=== PATIENT | female | born 1975 | race Hispanic/Latino ===

== ENCOUNTER 2017-07-19 22:23 | Emergency (ER) | payer SELFPAY ==
[2017-07-19 23:07] LABS: Urine Blood 2+ (NEG); Urine Glucose NEGATIVE (NEG); Urine Protein 2+ (NEG); Urine Specific Gravity >1.030 (1.005-1.030); Urine pH 5.5 (5.0-7.0)
[2017-07-19] MEDS ORDERED: KETOROLAC 30 MG/ML INJ ONE (23:41)
[2017-07-20 00:35] LABS: Absolute Monocytes 0.4 K/uL (0.1-1.3); Absolute Neutrophil 3.1 K/uL (1.8-8.0); Basophils % 0.7 % (0-1.3); Eosinophils % 1.4 % (0-4.4); Hematocrit 32.3 % (36.0-45.0); MCH 26.3 pg (27.0-35.0); MCV 81.7 fL (80-100); MPV 8.2 fL (7.6-11.3); Monocytes % 9.3 % (3.3-12.3); RBC Red Blood Cell Count 3.96 M/uL (3.86-4.86)
[2017-07-20 00:36] LABS: Protime INR 1.21
[2017-07-20 00:41] LABS: Potassium 3.2 mEq/L (3.6-5.0)
[2017-07-20 00:47] LABS: Albumin 3.8 g/dL (3.2-5.5); Bilirubin Direct 0.1 mg/dL (0-0.2); Bilirubin Total 0.8 mg/dL (0.3-1.2); Magnesium 2.2 mg/dL (1.8-2.5); Protein, Total 8.1 g/dL (6.0-8.3)
[2017-07-20 00:50] LABS: CKMB Creatine Kinase MB 0.7 ng/ml (0.3-4.0)
--- NOTE | 2017-07-20 03:42 | EDPHYS ---
Physician Documentation [facility] Name: Sobia Ang Age: 42 yrs Sex: Female : 1975 Arrival Date: 07/19/2017 Time: 22:24 Bed 7 Private MD: ED Physician Carlton Alexis HPI: 07/20 06:08 This 42 yrs old Female presents to ER via Ambulatory with complaints of Pain tw4 All Over, Abdominal Pain, Chest Pain. 06:08 The patient complains of pain in the left low back and right low back. The pain tw4 radiates. Onset: The symptoms/episode began/occurred today. Modifying factors: The symptoms are alleviated by nothing. the symptoms are aggravated by nothing. Associated signs and symptoms: The patient has no apparent associated signs or symptoms. Severity of pain: At its worst the pain was moderate in the emergency department the pain is unchanged. The patient has not experienced similar symptoms in the past. 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 - Social history:: Smoking status: Patient/guardian denies using tobacco, Patient/guardian denies using alcohol, street drugs. - Ebola Screening: : No symptoms or risks identified at this time. ROS: 07/20 06:08 Constitutional: Negative for fever, chills, and weight loss, Cardiovascular: Negative tw4 for chest pain, palpitations, and edema, Respiratory: Negative for shortness of breath, cough, wheezing, and pleuritic chest pain, MS/Extremity: Negative for injury and deformity, Skin: Negative for injury, rash, and discoloration. Abdomen/GI: Positive for abdominal pain, nausea and vomiting, Negative for abdominal pain, diarrhea, abdominal cramps, abdominal distension, anorexia, dysphagia, hematemesis, black/tarry stool, rectal pain, rectal bleeding. Back: Positive for pain at rest, pain with movement, flank pain, bilaterally, Negative for injury or acute deformity, decreased range of motion. Exam: 06:08 Constitutional: This is a well developed, well nourished patient who is awake, alert, tw4 and in no acute distress. Head/Face: Normocephalic, atraumatic. Chest/axilla: Normal chest wall appearance and motion. Nontender with no deformity. No lesions are appreciated. Cardiovascular: Regular rate and rhythm with a normal S1 and S2. No gallops, murmurs, or rubs. Normal PMI, no JVD. No pulse deficits. Respiratory: Lungs have equal breath sounds bilaterally, clear to auscultation and percussion. No rales, rhonchi or wheezes noted. No increased work of breathing, no retractions or nasal flaring. Abdomen/GI: Soft, non-tender, with normal bowel sounds. No distension or tympany. No guarding or rebound. No evidence of tenderness throughout. 06:08 MS/ Extremity: Pulses equal, no cyanosis. Neurovascular intact. Full, normal range of motion. Neuro: Awake and alert, GCS 15, oriented to person, place, time, and situation. Cranial nerves II-XII grossly intact. Motor strength 5/5 in all extremities. Sensory grossly intact. Cerebellar exam normal. Normal gait. 06:08 Back: pain, that is mild, ROM is painful, with all movement, decreased, with all movement, normal spinal alignment noted, CVA tenderness, is noted bilaterally. Vital Signs: 07/19 22:35 BP 115 / 74 LA Sitting (auto/reg); Pulse 95 LA; Resp 22 S; Temp 101.3(O); Pulse Ox 100% mg2 ; Weight 63.5 kg; Height 5 ft. 4 in. (162.56 cm) (R); Pain 10/10; 23:35 BP 106 / 64; Pulse 90; Resp 18; Pulse Ox 100% on R/A; mg2 07/20 00:31 BP 103 / 63; Pulse 79; Resp 18; Temp 100.8; Pulse Ox 100% ; Pain 2/10; mg2 01:44 BP 125 / 69; Pulse 79; Resp 18; Pulse Ox 100% on R/A; Pain 2/10; mg2 02:51 BP 107 / 70; Pulse 79; Resp 18; Temp 99.6(O); Pulse Ox 100% on R/A; Pain 2/10; mg2 07/19 22:35 Body Mass Index 24.03 (63.50 kg, 162.56 cm) mg2 MDM: 07/19 22:27 Patient medically screened. 07/20 06:08 Data reviewed: vital signs, nurses notes. Data interpreted: Pulse oximetry: Interpretation: normal. Counseling: I had a detailed discussion with the patient and/or guardian regarding: the historical points, exam findings, and any diagnostic results supporting the discharge/admit diagnosis. Special discussion: Based on the patient's Hx, exam, and Dx evaluation, there is no indication for emergent surgery or inpatient Tx. It is understood by the patient/guardian that if the Sx's persist or worsen they need to return immediately for re-evaluation. I discussed with the patient/guardian in detail that at this point there is no indication for admission to the hospital. It is understood, however, that if the symptoms persist or worsen the patient needs to return immediately for re-evaluation. 07/19 23:02 Order name: Urine Dipstick--Ancillary (enter results); Complete Time: 00:25 07/20 00:25 Interpretation: Normal except: UKET 2+; UPROT 2+; UBLD 2+. 07/19 23:02 Order name: Urine --Ancillary (enter results); Complete Time: 00:25 07/20 00:25 Interpretation: Normal except: USPGR >1.030. 07/19 23:03 Order name: Basic Metabolic Panel; Complete Time: 01:07 07/20 01:08 Interpretation: Normal except: NA 133; K 3.2; CA 8.3; CRE 1.07; GFR 56. 07/19 23:03 Order name: BNP; Complete Time: 01:07 07/19 23:03 Order name: CBC with Diff; Complete Time: 01:07 07/19 23:03 Order name: Ckmb; Complete Time: 01:07/19 23:03 Order name: CPK; Complete Time: 01:07/19 23:03 Order name: LFT's; Complete Time: 01:07/19 23:03 Order name: Magnesium; Complete Time: 01:07 07/19 23:03 Order name: PT-INR; Complete Time: 01:07 07/19 23:03 Order name: Ptt, Activated; Complete Time: 01:31 23:03 Order name: Troponin (emerg Dept Use Only); Complete Time: 01:07 07/20 01:08 Interpretation: Within normal limits: TROPED < 0.03. 07/19 23:03 Order name: XRAY Chest (1 view) 07/19 23:03 Order name: Urine Test (obtain specimen); Complete Time: 23:08 07/19 23:03 Order name: EKG; Complete Time: 23:04 07/19 23:03 Order name: Cardiac monitoring; Complete Time: 23:08 07/19 23:03 Order name: EKG - Nurse/Tech; Complete Time: 23:08 07/19 23:03 Order name: IV Saline Lock; Complete Time: 23:08 07/19 23:03 Order name: Labs collected and sent; Complete Time: 23:08 07/19 23:03 Order name: O2 Per Protocol; Complete Time: 23:08 07/19 23:03 Order name: O2 Sat Monitoring; Complete Time: 23:08 07/19 23:03 Order name: Urine Dipstick-Ancillary (obtain specimen); Complete Time: 23:08 07/20 02:09 Order name: Stone Protocol EDMS Administered Medications: 07/19 23:42 Drug: TORadol 30 mg Route: IVP; Site: right antecubital; mg2 07/20 00:34 Follow up: Response: No adverse reaction; Pain is decreased mg2 Disposition: 07/20/17 03:42 Discharged to Home. Impression: Low back pain, Vomiting, Gastritis, unspecified. - Condition is Stable. - Discharge Instructions: Pain Without a Known Cause, Gastritis, Adult, [id number], Nausea and Vomiting, [id number], Back Pain, Adult, Hugd-jc-Kyan. - Prescriptions for Naprosyn 500 mg Oral Tablet - take 1 tablet by ORAL route 2 times per day take with food; 30 tablet. Zofran 4 mg Oral Tablet - take 1 tablet by ORAL route every 12 hours As needed; 20 tablet. Cyclobenzaprine 10 mg Oral Tablet - take 1 tablet by ORAL route every 8 hours As needed; 30 tablet. - Medication Reconciliation Form, Thank You Letter, Antibiotic Education, Prescription Opioid Use, Work release form form. - Follow up: Private Physician; When: As needed; Reason: Recheck today's complaints, Continuance of care, Re-evaluation by your physician. - Problem is new. - Symptoms have improved. Signatures: Dispatcher [employer] [facility] Carlton Alexis MD MD tw4 Arnol Carlson, RN RN mg2 Corrections: (The following items were deleted from the chart) 01:08 01:08 Normal except: NA 133; K 3.2; CA 8.3; CRE 1.07. tw4 tw4 02:09 01:11 Abdomen Pelvis Wo Con+CT.RAD.BRZ ordered. [facility] 04:14 03:42 07/20/2017 03:42 Discharged to Home. Impression: Low back pain; Vomiting; mg2 Gastritis, unspecified. Condition is Stable. Forms are Medication Reconciliation Form, Thank You Letter, Antibiotic Education, Prescription Opioid Use. Follow up: Private Physician; When: As needed; Reason: Recheck today's complaints, Continuance of care, Re-evaluation by your physician. Problem is new. Symptoms have improved. tw4
--- NOTE | 2017-07-20 03:42 | ER ---
Nurse's Notes [facility] Name: Sobia Ang Age: 42 yrs Sex: Female : 1975 Arrival Date: 07/19/2017 Time: 22:24 Bed 7 Private MD: Diagnosis: Low back pain;Vomiting;Gastritis, unspecified Presentation: 07/19 22:40 Presenting complaint: Patient states: she had bilateral flank, chest and abdominal pain mg2 with vomiting since morning. she had also difficulty passing urine today. she took 2 tabs of ibuprofen \T\2030H. Transition of care: patient was not received from another setting of care. Onset of symptoms was July 19, 2017. Risk Assessment: Do you want to hurt yourself or someone else? Patient reports no desire to harm self or others. Initial Sepsis Screen: Does the patient meet any 2 criteria? No. Patient's initial sepsis screen is negative. Does the patient have a suspected source of infection? No. Patient's initial sepsis screen is negative. Care prior to arrival: None. 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 - Social history:: Smoking status: Patient/guardian denies using tobacco, Patient/guardian denies using alcohol, street drugs. - Ebola Screening: : No symptoms or risks identified at this time. Screenin:49 Abuse screen: Denies threats or abuse. Denies injuries from another. Nutritional mg2 screening: No deficits noted. Tuberculosis screening: No symptoms or risk factors identified. Fall Risk None identified. Assessment: 22:45 General: Appears uncomfortable, Behavior is calm, cooperative. Pain: Complains of pain mg2 in chest, abdomen and back Pain currently is 10 out of 10 on a pain scale. Quality of pain is described as aching, Pain began gradually, this morning Is intermittent, Noted to be moaning. 23:14 Neuro: Level of Consciousness is awake, alert, obeys commands, Oriented to person, mg2 place, time. Cardiovascular: Reports chest pain, vomiting, Capillary refill < 3 seconds Patient's skin is warm and dry. Respiratory: Airway is patent Respiratory effort is even, unlabored, Respiratory pattern is symmetrical. GI: Reports lower abdominal pain, vomiting. : Reports inability to void, since morning. EENT: No signs and/or symptoms were reported regarding the EENT system. Derm: Skin hereditary rashes. Musculoskeletal: No signs and/or symptoms reported regarding the musculoskeletal system. 23:17 GI: Bowel sounds present X 4 quads. Abd is soft. mg2 07/20 02:53 Reassessment: Patient appears in no apparent distress at this time. Patient and/or mg2 family updated on plan of care and expected duration. Pain level reassessed. Patient is alert, oriented x 3, equal unlabored respirations, skin warm/dry/pink. waiting for ct report. 03:50 Reassessment: Patient appears in no apparent distress at this time. Patient and/or mg2 family updated on plan of care and expected duration. Pain level reassessed. Patient is alert, oriented x 3, equal unlabored respirations, skin warm/dry/pink. Vital Signs: 07/19 22:35 BP 115 / 74 LA Sitting (auto/reg); Pulse 95 LA; Resp 22 S; Temp 101.3(O); Pulse Ox 100% mg2 ; Weight 63.5 kg; Height 5 ft. 4 in. (162.56 cm) (R); Pain 10/10; 23:35 BP 106 / 64; Pulse 90; Resp 18; Pulse Ox 100% on R/A; mg2 07/20 00:31 BP 103 / 63; Pulse 79; Resp 18; Temp 100.8; Pulse Ox 100% ; Pain 2/10; mg2 01:44 BP 125 / 69; Pulse 79; Resp 18; Pulse Ox 100% on R/A; Pain 2/10; mg2 02:51 BP 107 / 70; Pulse 79; Resp 18; Temp 99.6(O); Pulse Ox 100% on R/A; Pain 2/10; mg2 07/19 22:35 Body Mass Index 24.03 (63.50 kg, 162.56 cm) mg2 ED Course: 07/19 22:24 Patient arrived in ED. am2 22:26 Carlton Alexis MD is Attending Physician. tw4 22:33 Arnol Carlson, RN is Primary Nurse. mg2 22:42 Triage completed. mg2 22:45 Arm band placed on. mg2 22:50 Patient has correct armband on for positive identification. Placed in gown. Bed in low mg2 position. Side rails up X 1. Door closed. Noise minimized. Warm blanket given. 23:08 Inserted saline lock: 20 gauge in right antecubital area, using aseptic technique. mg2 Blood collected. 23:22 X-ray completed. Portable x-ray completed in exam room. Patient tolerated procedure kw well. 23:23 XRAY Chest (1 view) In Process Unspecified. EDMS 23:52 Lab(s) recollected, by me, sent to lab. mg2 07/20 02:[address] via wheelchair. kw1 02:24 Stone Protocol In Process Unspecified. EDMS 02:25 CT completed. Patient tolerated procedure well. Patient moved back from CT. kw1 03:51 No provider procedures requiring assistance completed. mg2 04:12 IV discontinued, intact, bleeding controlled, No redness/swelling at site. Pressure mg2 dressing applied. Administered Medications: 07/19 23:42 Drug: TORadol 30 mg Route: IVP; Site: right antecubital; mg2 07/20 00:34 Follow up: Response: No adverse reaction; Pain is decreased mg2 Outcome: 03:42 Discharge ordered by . tw4 04:13 Discharged to home ambulatory. mg2 04:13 Condition: stable 04:13 Discharge instructions given to patient, Instructed on discharge instructions, follow up and referral plans. medication usage, Demonstrated understanding of instructions, follow-up care, medications, Prescriptions given X 3. 04:14 Patient left the ED. mg2 Signatures: Dispatcher [employer] EDMS Juana Hanks kw Rima Adams am2 Larry Oconnor cb2 Belinda Grady kw1 Carlton Alexis MD MD tw4 Arnol Carlson RN RN mg2 Corrections: (The following items were deleted from the chart) 07/19 22:38 22:35 BP 115 / 74 Sitting Auto L Arm Regular; Pulse 95bpm; Left ArmResp 22bpm; cb2 Spontaneous; Pulse Ox 100%; Temp 99.5F Oral; 63.5 kg; Height 5 ft. 4 in. Reported; BMI: 24.0; Pain 10/10; cb2 22:49 22:35 BP 115 / 74 Sitting Auto L Arm Regular; Pulse 95bpm; Left ArmResp 22bpm; mg2 Spontaneous; Pulse Ox 100%; Temp 101.3F Oral; 63.5 kg; Height 5 ft. 4 in. Reported; BMI: 24.0; Pain 10; cb2 23:17 22:45 Pain: Complains of pain in chest, abdomen and back mg2 mg2
--- NOTE | 2017-07-20 06:51 | EKG ---
Test Date: 2017-07-19 Test Time: 22:54:09 Lna: KLAUS MEASUREMENT RESULTS: Intervals: Rate: 79 LA: 146 QRSD: 66 QT: 388 QTc: 444 [place]: P: 71 LA: 146 QRS: 45 T: 55 INTERPRETIVE STATEMENTS: Normal sinus rhythm Normal ECG Compared to ECG 03/18/2009 19:41:11 no significant change from previous ECG Electronically Signed On 07-20-17 06:50:27 CDT by Pedro Martin
--- NOTE | 2017-07-20 08:32 | RAD REPORT ---
EXAM DESCRIPTION: RAD - Chest Single View - 07/19/2017 11:26 pm CLINICAL HISTORY: Abdominal pain, flank pain COMPARISON: August 2015 TECHNIQUE: AP portable chest image was obtained 2313 hours . FINDINGS: Lungs are clear. Heart and vasculature are normal. No measurable pleural effusion and no p neumothorax. No gross bony abnormality seen. No acute aortic findings suspected. IMPRESSION: No acute cardiopulmonary process. No significant interval change.
--- NOTE | 2017-07-20 08:44 | RAD REPORT ---
EXAM DESCRIPTION: CT - Stone Protocol - 07/20/2017 7:36 am CLINICAL HISTORY: Bilateral flank pain, chest pain and abdominal pain, vomiting, difficulty urinating A preliminary written report was provided at the time of the study, and the report was reviewed prio r to final dictation. COMPARISON: CT imaging July 2007 TECHNIQUE: Axial [address] imaging of the abdomen and pelvis was performed without IV contrast. No IV contrast was given because of allergy, abnormal renal function, patient refusal or physician re quest. Oral contrast was given. All CT scans are performed using dose optimization technique as appropriate and may include automated exposure control or mA/KV adjustment according to patient size. FINDINGS: No suspicious findings in the lung bases. No pericardial effusion. The liver, spleen and pancreas show no suspicious findings on non-contrast imaging. Gallbladder and b iliary tree are also without suspicious finding. No hydronephrosis or suspicious renal mass. No significant adrenal finding. Isodense renal masses an d pyelonephritis cannot be excluded in the absence of IV contrast. Bladder is mostly contracted. This accentuates bladder raymond. Cystitis is unlikely. Uterus and ovaries within normal limits. No gastric dilatation or gastric wall thickening. No dilated large or small bowel. No focal or acute bowel process. No suspicion for appendicitis. No free air, free fluid or inflammatory stranding. No m ass or bulky lymphadenopathy. No omental thickening. No hernia defects identified. Patient has severa l bilateral inguinal lymph nodes. No clearly pathologic lymph node. In the right anterolateral subcut aneous fatty tissues there are 2 small masses just deep to the skin surface. These measure 10 mm and 16 mm in size. These were not present in 2007. These are not further characterized on CT imaging. The se are located in the right antral alar soft tissues between the umbilicus and the bottom of the ribc age. No suspicious bony findings. IMPRESSION: No acute abdominal or pelvic finding identifiable on noncontrast imaging. No abnormality seen as an etiology for the patient's symptoms. Two small soft tissue masses in the subcutaneous fatty tissues right anterolateral abdomen between th e umbilicus in the ribcage. These are nonspecific. Long-term significance is doubtful. Full assessment is limited is the absence of IV contrast.
== END 2017-07-20 04:14 | disposition home or self-care (01) ==
LOC: ER 22:23
DX: K29.70 Gastritis, unspecified, without bleeding (principal); R11.10 Vomiting, unspecified; Z79.82 Long term (current) use of aspirin
CPT/HCPCS: 36415; 71045; 74176; 76377; 80048; 80076; 81003; 81025; 82550; 82553; 83735; 83880; 84484; 85025; 85610; 85730; 93005; 96374; 99284

== ENCOUNTER 2018-07-16 10:47 | Emergency (ER) | payer SELFPAY ==
--- OUTSIDE RECORDS SUMMARY | 2018-07-16 10:49 | XMS REPORT ---
:1975 Author Organization [facility] Address [address] [place] [address] [place] [id number] Care Team Providers Name Role Phone Unavailable Unavailable Unavailable Problems This patient has no known problems. Allergies, Adverse Reactions, Alerts This patient has no known allergies or adverse reactions. Medications This patient has no known medications. Results Test Description Test Time Test Comments Text Results Atomic Results Result Comments SCR MAMM BILATERAL CAD 2017-12-25 15:48:19 - SCR MAMM BILATERAL CAD DIGITAL DIGITALBILATERAL FIRST EVER DIGITAL SCREENING MAMMOGRAM WITH CAD: 12/19/2017CLINICAL: Asymptomatic. Current mammographic images were evaluated by either a Involver M-Vu or a [employer] ImageChecker CAD (computer aided detection system). No prior exams were available for comparison. The tissue of both breasts is heterogeneously dense. This may lower the sensitivity of mammography. There is an oval low density mass measuring 1.8 cm in the lower inner quadrant of the right breast at middle depth. Prominent axillary nodes are noted bilaterally.No other significant masses, calcifications, or other findings are seen in either breast. IMPRESSION: INCOMPLETE ASSESSMENT: ADDITIONAL IMAGING EVALUATION RECOMMENDEDThe oval low density mass in the right breast is indeterminate. Prominent bilateral axillary lymph nodes. Additional views with possible ultrasound are recommended. Axillary ultrasound is recommended for evaluation of prominent lymph nodes.Esme Chiang M.D. el/:12/25/2017 15:48:19 [employer]vester: Jesusita Giron MM, [employer] Mammographyletter sent: Additional Imaging Mammogram BI-RADS: 0 Indeterminate
--- NOTE | 2018-07-16 11:25 | EDPHYS ---
Physician Documentation [facility] Name: Sobia Ang Age: 43 yrs Sex: Female : 1975 Arrival Date: 07/16/2018 Time: 10:51 Bed 25 Private MD: ED Physician Florin Wheeler HPI: 07/16 11:23 This 43 yrs old Female presents to ER via Ambulatory with complaints of Hives. ma2 11:23 Onset: The symptoms/episode began/occurred gradually, 2 week(s) ago. Associated signs ma2 and symptoms: Pertinent negatives: foreign body sensation, headache, swelling. Modifying factors: the symptoms are alleviated by remaining still, the symptoms are aggravated by pressure. Severity of symptoms: At their worst the symptoms were mild, in the emergency department the symptoms are unchanged. The patient has experienced similar episodes in the past. 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 - Social history:: Smoking status: Patient/guardian denies using tobacco, Patient/guardian denies using alcohol, street drugs, The patient lives with family. - Ebola Screening: : No symptoms or risks identified at this time. - Family history:: not pertinent. ROS: 11:23 Constitutional: Negative for fever, chills, and weight loss. ma2 11:23 Skin: Positive for lesions, diffusely, Negative for discoloration. 11:23 All other systems are negative. Exam: 11:23 Constitutional: This is a well developed, well nourished patient who is awake, alert, ma2 and in no acute distress. Head/Face: Normocephalic, atraumatic. Eyes: Pupils equal round and reactive to light, extra-ocular motions intact. Lids and lashes normal. Conjunctiva and sclera are non-icteric and not injected. Cornea within normal limits. Periorbital areas with no swelling, redness, or edema. ENT: Nares patent. No nasal discharge, no septal abnormalities noted. Tympanic membranes are normal and external auditory canals are clear. Oropharynx with no redness, swelling, or masses, exudates, or evidence of obstruction, uvula midline. Mucous membranes moist. Chest/axilla: Normal chest wall appearance and motion. Nontender with no deformity. No lesions are appreciated. Cardiovascular: Regular rate and rhythm with a normal S1 and S2. No gallops, murmurs, or rubs. Normal PMI, no JVD. No pulse deficits. Respiratory: Lungs have equal breath sounds bilaterally, clear to auscultation and percussion. No rales, rhonchi or wheezes noted. No increased work of breathing, no retractions or nasal flaring. Abdomen/GI: Soft, non-tender, with normal bowel sounds. No distension or tympany. No guarding or rebound. No evidence of tenderness throughout. Female : Normal external genitalia. Neuro: Awake and alert, GCS 15, oriented to person, place, time, and situation. Cranial nerves II-XII grossly intact. Motor strength 5/5 in all extremities. Sensory grossly intact. Cerebellar exam normal. Normal gait. 11:23 Skin: rash a moderate rash is noted, rash can be described as excoriated, raised, urticarial, and is diffusely located. Vital Signs: 10:56 BP 122 / 69; Pulse 76; Resp 16; Temp 97.9; Pulse Ox 100% on R/A; Weight 63.5 kg; Height hb 5 ft. (152.40 cm); Pain 10/10; 10:56 Body Mass Index 27.34 (63.50 kg, 152.40 cm) hb MDM: 10:58 Patient medically screened. ma2 11:23 Differential diagnosis: psoriasis, rash, eczema . Data reviewed: vital signs, nurses ma2 notes. Counseling: I had a detailed discussion with the patient and/or guardian regarding: the historical points, exam findings, and any diagnostic results supporting the discharge/admit diagnosis, the presence of at least one elevated blood pressure reading (>120/80) during this emergency department visit, the need for outpatient follow up. Response to treatment: the patient's symptoms have mildly improved after treatment. Administered Medications: 11:19 Drug: MethylPREDNISolone Sodium Succinate 125 mg Route: IM; Site: left ventrogluteal; sg 11:19 Drug: Benadryl 50 mg Route: IM; Site: right deltoid; sg Disposition: 07/16/18 11:25 Discharged to Home. Impression: Rash and other nonspecific skin eruption. - Condition is Stable. - Discharge Instructions: Rash, [id number]. - Prescriptions for Bactroban 2 % Topical Ointment - Apply to affected area 1 application by TOPICAL route every 12 hours; 15 gram. Benadryl 25 mg Oral Capsule - take 1 capsule by ORAL route every 6 hours As needed; 30 tablet. Medrol (David) 4 mg Oral Tablets, Dose Pack - take 1 tablet by ORAL route as directed - follow package instructions; 1 packet. Pepcid 20 mg Oral Tablet - take 1 tablet by ORAL route once daily for 10 days; 10 tablet. - Work release form, Medication Reconciliation Form, Thank You Letter, Antibiotic Education, Prescription Opioid Use form. - Follow up: Private Physician; When: Tomorrow; Reason: Continuance of care. Signatures: Abdirahman Hernandez RN RN Oksana Richey RN RN Florin Wheeler MD MD ma2 Corrections: (The following items were deleted from the chart) 11:42 11:25 07/16/2018 11:25 Discharged to Home. Impression: Rash and other nonspecific skin sg eruption. Condition is Stable. Forms are Medication Reconciliation Form, Thank You Letter, Antibiotic Education, Prescription Opioid Use. Follow up: Private Physician; When: Tomorrow; Reason: Continuance of care. ma2
--- NOTE | 2018-07-16 11:25 | ER ---
Nurse's Notes [facility] Name: Sobia Ang Age: 43 yrs Sex: Female : 1975 Arrival Date: 07/16/2018 Time: 10:51 Bed 25 Private MD: Diagnosis: Rash and other nonspecific skin eruption Presentation: 07/16 10:54 Presenting complaint: Patient states: Hives on left arm, left leg, back, and face x 2 hb days. Transition of care: patient was not received from another setting of care. Onset: The symptoms/episode began/occurred yesterday. Anaphylaxis evaluation, the patient reports or I have noted the following symptoms which indicate a significant risk of anaphylaxis:. Onset of symptoms was July 15, 2018. Risk Assessment: Do you want to hurt yourself or someone else? Patient reports no desire to harm self or others. Care prior to arrival: None. 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 - Social history:: Smoking status: Patient/guardian denies using tobacco, Patient/guardian denies using alcohol, street drugs, The patient lives with family. - Ebola Screening: : No symptoms or risks identified at this time. - Family history:: not pertinent. Vital Signs: 10:56 BP 122 / 69; Pulse 76; Resp 16; Temp 97.9; Pulse Ox 100% on R/A; Weight 63.5 kg; Height hb 5 ft. (152.40 cm); Pain 10/10; 10:56 Body Mass Index 27.34 (63.50 kg, 152.40 cm) hb ED Course: 10:51 Patient arrived in ED. as 10:56 Triage completed. hb 10:56 Arm band placed on right wrist. hb 10:58 Florin Wheeler MD is Attending Physician. ma2 11:08 Abdirahman Hernandez RN is Primary Nurse. sg Administered Medications: 11:19 Drug: MethylPREDNISolone Sodium Succinate 125 mg Route: IM; Site: left ventrogluteal; sg 11:19 Drug: Benadryl 50 mg Route: IM; Site: right deltoid; sg Outcome: 11:25 Discharge ordered by . silvana 11:42 Patient left the ED. sg Signatures: Abdirahman Hernandez RN RN sg Martinez, Amelia as Baxter, Heather, RN RN Florin Wheeler MD MD ma2
[2018-07-16] MEDS ORDERED: METHYLPREDNISOLONE 125 MG INJ ONE (11:34)
[2018-07-16] MEDS ORDERED: DIPHENHYDRAMINE 50 MG/ML VIAL ONE (11:35)
== END 2018-07-16 11:42 | disposition home or self-care (01) ==
LOC: ER 10:47
DX: R21 Rash and other nonspecific skin eruption (principal)
CPT/HCPCS: 96372; 99282; J2930

== ENCOUNTER 2019-02-09 10:38 | Emergency (ER) | payer SELFPAY ==
--- OUTSIDE RECORDS SUMMARY | 2019-02-09 10:40 | XMS REPORT ---
:1975 [facility] [address] [place] [address] Dr. Crawford [address] [place] [id number] Care Team Providers Name Role Phone Unavailable [...] mammographic images were evaluated by either a Backplane M-Vu or a Clerk ImageChecker CAD (computer aided detection system). No [...] prominent lymph nodes.Esme Chiang M.D. el/:12/25/2017 15:48:19 Carburetor Specialist: Jesusita Giron MM, [facility] Mammographyletter sent: Additional Imaging Mammogram BI-RADS: 0 Indeterminate
[2019-02-09] MEDS ORDERED: ALBUTEROL 2.5 MG/3 ML NEB SOL ONE (11:17)
[2019-02-09] MEDS ORDERED: NA CHLORIDE 0.9% 1,000 ML ONE (11:18)
[2019-02-09] MEDS ORDERED: ONDANSETRON 4 MG/2 ML VIAL ONE (11:18)
[2019-02-09] MEDS ORDERED: IPRATROPIUM BROM 0.5MG/2.5ML ONE (11:18)
[2019-02-09 11:33] LABS: Basophils % 0.5 % (0-1.3); Hematocrit 32.8 % (36.0-45.0); Lymphocytes % 21.8 % (15.3-44.8); MPV 7.8 fL (7.6-11.3); RBC Red Blood Cell Count 3.81 M/uL (3.86-4.86)
[2019-02-09 11:51] LABS: ALT/SGPT 18 U/L (12-78); AST/SGOT 11 U/L (15-37); Alkaline Phosphatase 73 U/L (45-117); BUN Blood Urea Nitrogen 9 mg/dL (7-18); Bicarbonate 27 mmol/L (21-32); Bilirubin Direct < 0.1 mg/dL (0-0.2); Bilirubin Total 0.3 mg/dL (0.2-1.0); Glucose Level 102 mg/dL (74-106); Lipase 125 U/L (73-393); Potassium 3.8 mmol/L (3.5-5.1); Protein, Total 7.6 g/dL (6.4-8.2); Sodium Level 140 mmol/L (136-145)
--- NOTE | 2019-02-09 11:55 | RAD REPORT ---
EXAM DESCRIPTION: RAD - Chest Single View - 02/09/2019 11:46 am CLINICAL HISTORY: Congestion;Cough Chest pain. COMPARISON: Chest Single View dated 07/19/2017; Chest Pa And Lat (2 Views) dated 09/11/2015; CHEST SIN GLE VIEW dated 08/04/2007; CHEST PA AND LAT 2 VIEW dated 07/13/2006 FINDINGS: Portable technique limits examination quality. The lungs are grossly clear. The heart is normal in size. No displaced fractures. IMPRESSION: No acute intrathoracic process suspected.
--- NOTE | 2019-02-09 13:10 | ER ---
Nurse's Notes [facility] Name: Sobia Ang Age: 43 yrs Sex: Female : 1975 Arrival Date: 02/09/2019 Time: 10:40 Bed 17 Private MD: Diagnosis: Gastroenteritis, non-specific;Nausea and vomiting;Diarrhea, unspecified Presentation: 02/09 10:48 Presenting complaint: Patient states: i thought yesterday it was just allergies, i am tw2 sweating when i woke up, i have had a cough and sob, chest tightness, also nauseous vomiting and have diarrhea. Transition of care: patient was not received from another setting of care. Onset of symptoms was February 09, 2019. Risk Assessment: Do you want to hurt yourself or someone else? Patient reports no desire to harm self or others. Initial Sepsis Screen: Does the patient meet any 2 criteria? No. Patient's initial sepsis screen is negative. Does the patient have a suspected source of infection? No. Patient's initial sepsis screen is negative. Care prior to arrival: None. 10:48 Method Of Arrival: Ambulatory tw2 10:48 Acuity: FRANCES 3 tw2 Triage Assessment: 10:45 General: Appears in no apparent distress. Respiratory: Onset: The symptoms/episode tw2 began/occurred yesterday, the patient has mild shortness of breath. 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 - Social history:: Smoking status: . - Ebola Screening: : Patient denies travel to an Ebola-affected area in the 21 days before illness onset. Screenin:34 Abuse screen: Denies threats or abuse. Nutritional screening: No deficits noted. tw2 Tuberculosis screening: No symptoms or risk factors identified. Fall Risk None identified. Assessment: 10:45 General: Appears in no apparent distress. slender, well groomed, Behavior is calm, tw2 cooperative, appropriate for age. Pain: Complains of pain in abdomen. Neuro: Level of Consciousness is awake, alert, obeys commands, Oriented to person, place, time, situation. Cardiovascular: Heart tones S1 S2 Capillary refill < 3 seconds Patient's skin is warm and dry. Rhythm is regular. Respiratory: Reports shortness of breath at rest on exertion cough that is non-productive, Airway is patent Respiratory effort is even, unlabored, Respiratory pattern is regular, symmetrical, Breath sounds with wheezes bilaterally. GI: Abdomen is flat, Bowel sounds present X 4 quads. Reports diarrhea, nausea, vomiting. : No signs and/or symptoms were reported regarding the genitourinary system. EENT: Reports nasal congestion nasal discharge. Derm: Reports skin condition "derais skin disease that is hereditary". Musculoskeletal: Range of motion: intact in all extremities. 11:45 Reassessment: Patient appears in no apparent distress at this time. No changes from tw2 previously documented assessment. Patient and/or family updated on plan of care and expected duration. Pain level reassessed. Patient is alert, oriented x 3, equal unlabored respirations, skin warm/dry/pink. 12:35 Reassessment: Patient appears in no apparent distress at this time. No changes from tw2 previously documented assessment. Patient and/or family updated on plan of care and expected duration. Pain level reassessed. Patient is alert, oriented x 3, equal unlabored respirations, skin warm/dry/pink. 13:30 Reassessment: Patient appears in no apparent distress at this time. No changes from tw2 previously documented assessment. Patient and/or family updated on plan of care and expected duration. Pain level reassessed. Patient is alert, oriented x 3, equal unlabored respirations, skin warm/dry/pink. 14:14 Reassessment: Patient appears in no apparent distress at this time. No changes from tw2 previously documented assessment. Patient and/or family updated on plan of care and expected duration. Pain level reassessed. Patient is alert, oriented x 3, equal unlabored respirations, skin warm/dry/pink. Vital Signs: 10:50 BP 124 / 77; Pulse 78; Resp 18; Temp 97.8(TE); Pulse Ox 100% on R/A; Weight 54.43 kg tw2 (R); Height 5 ft. 0 in. (152.40 cm); Pain 8/10; 11:47 BP 97 / 65; Pulse 78; Resp 17; Pulse Ox 100% on R/A; tw2 12:35 BP 101 / 56; Pulse 91; Resp 17; Pulse Ox 99% on R/A; tw2 13:30 BP 97 / 55; Pulse 84; Resp 17; Pulse Ox 99% on R/A; tw2 14:13 BP 108 / 49; Pulse 82; Resp 17; Pulse Ox 100% on R/A; tw2 10:50 Body Mass Index 23.44 (54.43 kg, 152.40 cm) tw2 ED Course: 10:40 Patient arrived in ED. mr 10:41 Cassius Osborne MD is Attending Physician. kdr 10:43 Bed in low position. Call light in reach. property assessment monitor on. Pulse ox on. NIBP on. tw2 10:47 Michelle Meyers RN is Primary Nurse. tw2 10:49 Triage completed. tw2 10:51 Arm band placed on. tw2 11:20 Inserted saline lock: 22 gauge in right antecubital area, using aseptic technique. tw2 Blood collected. 11:49 CXR XRAY In Process Unspecified. EDMS 13:08 Shaun Moore is Hospitalizing Provider. kdr 14:32 No provider procedures requiring assistance completed. IV discontinued, intact, tw2 bleeding controlled, No redness/swelling at site. Pressure dressing applied. Administered Medications: 11:20 Drug: NS 0.9% 1000 ml Route: IV; Rate: 1 bolus; Site: right antecubital; tw2 12:36 Follow up: Response: No adverse reaction; IV Status: Completed infusion; IV Intake: tw2 1000ml 11:20 Drug: Albuterol - atroVENT (3:1) (2.5 mg - 0.5 mg) 3 ml Route: Nebulizer; tw2 12:35 Follow up: Response: No adverse reaction tw2 11:20 Drug: Zofran 4 mg Route: IVP; Site: right antecubital; tw2 12:36 Follow up: Response: No adverse reaction; Nausea is decreased tw2 14:23 Drug: Tylenol 1000 mg Route: PO; tw2 14:32 Follow up: Response: No adverse reaction tw2 Intake: 12:36 IV: 1000ml; Total: 1000ml. tw2 Outcome: 13:08 Decision to Hospitalize by Provider. kdr 14:14 Discharge ordered by . kdr 14:32 Discharged to home ambulatory, with significant other. tw2 14:32 Condition: stable 14:32 Discharge instructions given to patient, significant other, Instructed on discharge instructions, follow up and referral plans. no drinking with medication, no driving heavy equipment, medication usage, Demonstrated understanding of instructions, follow-up care, medications, Prescriptions given X 2. 14:33 Patient left the ED. tw2 Signatures: Dispatcher MedHost EDMS Cassius Osborne MD MD [facility] Talita Michelle Emmanuel, RN RN tw2
--- NOTE | 2019-02-09 13:11 | EDPHYS ---
Physician Documentation [facility] Name: Sobia Ang Age: 43 yrs Sex: Female : 1975 Arrival Date: 02/09/2019 Time: 10:40 Bed 17 Private MD: ED Physician Cassius Osborne HPI: 02/09 11:28 This 43 yrs old Female presents to ER via Ambulatory with complaints of Cough, kdr Breathing Difficulty, Vomiting. 11:28 The patient or guardian reports airway noise, cough, that is intermittent, with no kdr sputum, difficulty breathing, The patinet also has had n/v/d since yesterday and has not been able to keep anything down. Onset: The symptoms/episode began/occurred gradually, yesterday. Severity of symptoms: At their worst the symptoms were moderate, just prior to arrival, in the emergency department the symptoms are unchanged. Modifying factors: The symptoms are alleviated by nothing, the symptoms are aggravated by activity and eating. Associated signs and symptoms: Pertinent positives: diarrhea, fever, vomiting. The patient has not experienced similar symptoms in the past. The patient has not recently seen a physician. 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 - Social history:: Smoking status: . - Ebola Screening: : Patient denies travel to an Ebola-affected area in the 21 days before illness onset. ROS: 11:28 Constitutional: Negative for objective fever, chills, and weight loss - she did have kdr sweats last night Eyes: Negative for injury, pain, redness, and discharge, Neck: Negative for injury, pain, and swelling, Cardiovascular: Negative for chest pain, palpitations, and edema, Back: Negative for injury and pain, : Negative for injury, bleeding, discharge, and swelling, MS/Extremity: Negative for injury and deformity, Skin: Negative for injury, rash, and discoloration, Neuro: Negative for headache, weakness, numbness, tingling, and seizure activity. Psych: Negative for depression, anxiety, suicide ideation, homicidal ideation, and hallucinations, Allergy/Immunology: Negative for hives, rash, and allergies, Endocrine: Negative for neck swelling, polydipsia, polyuria, polyphagia, and marked weight changes, Hematologic/Lymphatic: Negative for swollen nodes, abnormal bleeding, and unusual bruising. 11:28 Respiratory: Positive for cough, with no reported sputum, shortness of breath, on exertion. Negative for dyspnea on exertion, hemoptysis, orthopnea, pleurisy, sputum production, wheezing. 11:28 Abdomen/GI: Positive for abdominal pain, nausea and vomiting, nausea, vomiting, and diarrhea, abdominal cramps, Negative for constipation, abdominal distension, anorexia, dysphagia, hematemesis, black/tarry stool, rectal pain, rectal bleeding, bowel incontinence. Exam: 11:28 Constitutional: This is a well developed, well nourished patient who is awake, alert, kdr and in no acute distress. Head/Face: Normocephalic, atraumatic. Eyes: Pupils equal round and reactive to light, extra-ocular motions intact. Lids and lashes normal. Conjunctiva and sclera are non-icteric and not injected. Cornea within normal limits. Periorbital areas with no swelling, redness, or edema. Neck: Trachea midline, no thyromegaly or masses palpated, and no cervical lymphadenopathy. Supple, full range of motion without nuchal rigidity, or vertebral point tenderness. No Meningismus. Chest/axilla: Normal chest wall appearance and motion. Nontender with no deformity. No lesions are appreciated. Cardiovascular: Regular rate and rhythm with a normal S1 and S2. No gallops, murmurs, or rubs. Normal PMI, no JVD. No pulse deficits. Back: No spinal tenderness. No costovertebral tenderness. Full range of motion. Skin: Warm, dry with normal turgor. Normal color with no rashes, no lesions, and no evidence of cellulitis. MS/ Extremity: Pulses equal, no cyanosis. Neurovascular intact. Full, normal range of motion. Neuro: Awake and alert, GCS 15, oriented to person, place, time, and situation. Cranial nerves II-XII grossly intact. Motor strength 5/5 in all extremities. Sensory grossly intact. Cerebellar exam normal. Normal gait. Psych: Awake, alert, with orientation to person, place and time. Behavior, mood, and affect are within normal limits. 11:28 Respiratory: the patient does not display signs of respiratory distress, Respirations: normal, Breath sounds: rales, + upper airway congestion. wheezing: is scattered, is heard diffusely. Vital Signs: 10:50 BP 124 / 77; Pulse 78; Resp 18; Temp 97.8(TE); Pulse Ox 100% on R/A; Weight 54.43 kg tw2 (R); Height 5 ft. 0 in. (152.40 cm); Pain 8/10; 11:47 BP 97 / 65; Pulse 78; Resp 17; Pulse Ox 100% on R/A; tw2 12:35 BP 101 / 56; Pulse 91; Resp 17; Pulse Ox 99% on R/A; tw2 13:30 BP 97 / 55; Pulse 84; Resp 17; Pulse Ox 99% on R/A; tw2 14:13 BP 108 / 49; Pulse 82; Resp 17; Pulse Ox 100% on R/A; tw2 10:50 Body Mass Index 23.44 (54.43 kg, 152.40 cm) tw2 MDM: 11:28 Data reviewed: vital signs, nurses notes, lab test result(s), radiologic studies. kdr Counseling: I had a detailed discussion with the patient and/or guardian regarding: the historical points, exam findings, and any diagnostic results supporting the discharge/admit diagnosis, lab results, radiology results. 13:08 Patient medically screened. [facility] 02/09 11:11 Order name: Basic Metabolic Panel; Complete Time: 13:07 kdr 02/09 11:11 Order name: CBC with Diff; Complete Time: 13: kdr 02/09 11:11 Order name: Creatinine for Radiology; Complete Time: 13:07 kdr 02/09 11:11 Order name: Hepatic Function; Complete Time: 13:07 kdr 02/09 11:11 Order name: Lipase; Complete Time: 13:07 kdr 02/09 11:11 Order name: Flu; Complete Time: 13:07 kdr 02/09 11:11 Order name: IV Saline Lock; Complete Time: 11:28 kdr 02/09 11:11 Order name: Labs collected and sent; Complete Time: 11:28 kdr 02/09 11:11 Order name: CXR XRAY; Complete Time: 13: kdr 02/09 13:07 Order name: PO challenge; Complete Time: 13:21 kdr Administered Medications: 11:20 Drug: NS 0.9% 1000 ml Route: IV; Rate: 1 bolus; Site: right antecubital; tw2 12:36 Follow up: Response: No adverse reaction; IV Status: Completed infusion; IV Intake: tw2 1000ml 11:20 Drug: Albuterol - atroVENT (3:1) (2.5 mg - 0.5 mg) 3 ml Route: Nebulizer; tw2 12:35 Follow up: Response: No adverse reaction tw2 11:20 Drug: Zofran 4 mg Route: IVP; Site: right antecubital; tw2 12:36 Follow up: Response: No adverse reaction; Nausea is decreased tw2 14:23 Drug: Tylenol 1000 mg Route: PO; tw2 14:32 Follow up: Response: No adverse reaction tw2 Disposition: 02/09/19 14:14 Discharged to Home. Impression: Gastroenteritis, non-specific, Nausea and vomiting, Diarrhea, unspecified. - Condition is Stable. - Discharge Instructions: Nausea and Vomiting, Adult, [id number], Diarrhea, Adult, [id number]. - Prescriptions for Pepcid 20 mg Oral Tablet - take 1 tablet by ORAL route once daily; 20 tablet. promethazine 25 mg Oral Tablet - take 1 tablet by ORAL route every 6 hours As needed; 20 tablet. - Medication Reconciliation Form, Thank You Letter, Work release form form. - Follow up: Private Physician; When: 2 - 3 days; Reason: If symptoms return, Further diagnostic work-up, Recheck today's complaints, Continuance of care, Re-evaluation by your physician. - Problem is new. - Symptoms have improved. Signatures: Dispatcher MedHost EDND Cassius Osborne MD MD kdr Michelle Meyers RN RN tw2 Corrections: (The following items were deleted from the chart) 13:36 13:08 Hospitalization Ordered by Shaun Moore for Observation. Preliminary diagnosis kdr is Ascites; Abdominal and pelvic pain; Shortness of breath. Bed requested for Telemetry/MedSurg (observation). Status is Observation. Condition is Fair. Problem is an acute exacerbation. Symptoms are unchanged. UTI on Admission? No. kdr 14:33 14:14 02/09/2019 14:14 Discharged to Home. Impression: Gastroenteritis, non-specific; tw2 Nausea and vomiting; Diarrhea, unspecified. Condition is Stable. Forms are Medication Reconciliation Form, Thank You Letter, Antibiotic Education, Prescription Opioid Use. Follow up: Private Physician; When: 2 - 3 days; Reason: If symptoms return, Further diagnostic work-up, Recheck today's complaints, Continuance of care, Re-evaluation by your physician. Problem is new. Symptoms have improved. kdr
[2019-02-09] MEDS ORDERED: ACETAMINOPHEN 500 MG TAB ONE (14:25)
[2019-02-09 14:57] VITALS: BP 108/49; O2SAT 100
[2019-02-09 15:06] VITALS: TEMP 97.5
== END 2019-02-09 14:33 | disposition home or self-care (01) ==
LOC: ER 10:38
DX: K52.9 Noninfective gastroenteritis and colitis, unspecified (principal); Z88.6 Allergy status to analgesic agent
CPT/HCPCS: 36415; 71045; 80048; 80076; 83690; 85025; 87804; 94640; 96361; 96374; 99285; J2405; J7030

== ENCOUNTER 2019-04-26 13:39 | Emergency (ER) | payer SELFPAY ==
--- OUTSIDE RECORDS SUMMARY | 2019-04-26 13:42 | XMS REPORT ---
:1975 [facility] Address [address] [place] [address] Dr. Crawford [address] [place] [id number] Care Team Providers Name Role Phone Unavailable [...] mammographic images were evaluated by either a [employer] M-Vu or a [employer] ImageChecker CAD (computer aided detection system). No [...] prominent lymph nodes.Esme Chiang M.D. el/:12/25/2017 15:48:19 Beef Cattle Farmer: Jeussita Giron MM, [facility] Mammographyletter sent: Additional Imaging Mammogram BI-RADS: 0 Indeterminate
[2019-04-26 14:27] LABS: Absolute Lymphocytes (CBC) 1.9 K/uL (0.7-4.9); Basophils % 0.6 % (0-1.3); Hematocrit 31.7 % (36.0-45.0); Lymphocytes % 31.7 % (15.3-44.8); MPV 8.3 fL (7.6-11.3); Protime INR 1.06; RBC Red Blood Cell Count 3.59 M/uL (3.86-4.86)
--- NOTE | 2019-04-26 14:30 | RAD REPORT ---
EXAM DESCRIPTION: Helen Single View04/26/2019 2:22 pm CLINICAL HISTORY: Chest pain COMPARISON: 2018 FINDINGS: The lungs appear clear of acute infiltrate. The heart is normal size IMPRESSION: No acute abnormalities displayed
[2019-04-26 14:40] LABS: ALT/SGPT 15 U/L (12-78); AST/SGOT 12 U/L (15-37); Albumin 3.1 g/dL (3.4-5.0); Alkaline Phosphatase 81 U/L (45-117); BUN Blood Urea Nitrogen 18 mg/dL (7-18); Bicarbonate 25 mmol/L (21-32); Bilirubin Direct < 0.1 mg/dL (0-0.2); Bilirubin Total 0.3 mg/dL (0.2-1.0); Glucose Level 100 mg/dL (74-106); Magnesium 1.9 mg/dL (1.8-2.4); NT PRO-BNP 118 pg/mL (<125); Potassium 4.1 mmol/L (3.5-5.1); Protein, Total 7.3 g/dL (6.4-8.2); Sodium Level 140 mmol/L (136-145); Troponin (Emerg Dept Use Only) < 0.02 ng/mL (0.0-0.045)
--- NOTE | 2019-04-26 15:36 | ER ---
Nurse's Notes [facility] Name: Sobia Ang Age: 44 yrs Sex: Female : 1975 Arrival Date: 04/26/2019 Time: 13:43 Bed 19 Private MD: Diagnosis: Chest pain, unspecified;Paresthesia of skin;Anxiety disorder, unspecified Presentation: 04/25 13:49 Chief complaint: Patient states: this pain started about an hour ago and its like a tw2 stabbing feeling in the center and my hands are numb, and i feel light headed. Coronavirus screen: The patient has NOT traveled to a country currently being monitored by the [facility] within the last 14 days. Ebola Screen: Patient denies travel to an Ebola-affected area in the 21 days before illness onset. Initial Sepsis Screen: Does the patient meet any 2 criteria? No. Patient's initial sepsis screen is negative. Does the patient have a suspected source of infection?. Risk Assessment: Do you want to hurt yourself or someone else? Patient reports no desire to harm self or others. 13:49 Method Of Arrival: Wheelchair tw2 13:49 Acuity: FRANCES 3 tw2 Triage Assessment: 13:51 General: Appears in no apparent distress. Behavior is calm, cooperative, appropriate tw2 for age. Pain: Complains of pain in xyphoid area and mid-sternal area. Cardiovascular: Reports chest pain, lightheadedness. 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 - Social history:: Smoking status: Patient denies any tobacco usage or history of. Screenin:00 Abuse screen: Denies threats or abuse. Nutritional screening: No deficits noted. vc Tuberculosis screening: No symptoms or risk factors identified. Fall Risk None identified. Assessment: 14:05 General: Appears in no apparent distress. uncomfortable, Behavior is cooperative, vc appropriate for age, anxious. Neuro: Level of Consciousness is awake, alert, obeys commands, Oriented to person, place, time, situation, Appropriate for age. Cardiovascular: Reports chest pain, Patient's skin is warm and dry. Respiratory: Airway is patent Respiratory effort is even, unlabored, Respiratory pattern is regular, symmetrical. GI: No signs and/or symptoms were reported involving the gastrointestinal system. : No signs and/or symptoms were reported regarding the genitourinary system. Derm: Skin is intact, patient has a skin condition leaving lesions covering face and abdomen. 14:05 Musculoskeletal: Circulation, motion, and sensation intact. Range of motion: intact in vc all extremities. 14:39 Pain: Pain does not radiate. Pain began gradually, 4 hours ago. vc 15:35 Reassessment: Patient and/or family updated on plan of care and expected duration. Pain vc level reassessed. Patient is alert, oriented x 3, equal unlabored respirations, skin warm/dry/pink. Patient states feeling better. Patient states symptoms have improved. Vital Signs: 13:49 Pulse 62; Resp 17; Temp 97.4(TE); Pulse Ox 98% on R/A; Weight 63.5 kg (R); Height 5 ft. tw2 0 in. (152.40 cm); Pain 9/10; 14:00 BP 115 / 67; Pulse 58; Resp 20; Pulse Ox 99% on R/A; vc 15:00 BP 106 / 84; Pulse 56; Resp 20; Pulse Ox 99% on R/A; vc 15:30 BP 129 / 69; Pulse 63; Resp 14; Pulse Ox 100% ; vc 13:49 Body Mass Index 27.34 (63.50 kg, 152.40 cm) tw2 ED Course: 13:43 Patient arrived in ED. fj1 13:47 Prem Pritchett NP is PHCP. pm1 13:47 Renan Montiel MD is Attending Physician. pm1 13:51 Triage completed. tw2 13:51 Arm band placed on. tw2 14:05 Inserted saline lock: 20 gauge in right antecubital area, using aseptic technique. vc Patient maintains SpO2 saturation greater than 95% on room air. 14:07 Patient has correct armband on for positive identification. Placed in gown. Bed in low 5 position. Call light in reach. Side rails up X 1. Adult w/ patient. Warm blanket given. surveillance system monitor on. Pulse ox on. NIBP on. 14:07 EKG done, by ED staff, reviewed by Prem Pritchett NP. [facility] 14:19 Belen Henry, RN is Primary Nurse. vc 14:20 XRAY Chest (1 view) Sent. vc 14:23 XRAY Chest (1 view) In Process Unspecified. EDMS 16:14 No provider procedures requiring assistance completed. IV discontinued, intact, vc bleeding controlled, No redness/swelling at site. Pressure dressing applied. Administered Medications: 16:08 Drug: Ativan 0.5 mg Route: PO; vc 16:14 Follow up: Response: No adverse reaction; Medication administered at discharge. vc Outcome: 15:34 Discharge ordered by MD. pm1 16:15 Discharged to home ambulatory, with significant other. vc 16:15 Condition: improved 16:15 Discharge instructions given to patient, Instructed on discharge instructions, follow up and referral plans. medication usage, Demonstrated understanding of instructions, follow-up care, medications, Prescriptions given X 1. 16:15 Patient left the ED. vc Signatures: Dispatcher [employer] EDMS Prem Pritchett NP DIRECTOR TEEN POST pm1 Michelle Meyers RN RN 2 Sobia Celeste [facility] Belen Henry, ANNA RN Cachorro Choudhury fj1
--- NOTE | 2019-04-26 15:36 | EDPHYS ---
Physician Documentation [facility] Name: Sobia Ang Age: 44 yrs Sex: Female : 1975 Arrival Date: 04/26/2019 Time: 13:43 Bed 19 Private MD: ED Physician Renan Montiel HPI: 04/25 14:31 This 44 yrs old Female presents to ER via Wheelchair with complaints of Chest pm1 Pain, Numbness, Anxiety. 14:31 The patient or guardian reports chest pain that is located primarily in the mid-sternal pm1 area. Onset: this morning. The pain does not radiate. Associated signs and symptoms: Pertinent positives: dizziness, palpitations, numbness to hands and feet, Pertinent negatives: abdominal pain, nausea, shortness of breath, vomiting. The chest pain is described as sharp. Duration: The patient or guardian reports multiple episodes. Modifying factors: The symptoms are alleviated by nothing. the symptoms are aggravated by emotionally stressful situations. Severity of pain: in the emergency department the pain has improved. The patient has not recently seen a physician. 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 - Social history:: Smoking status: Patient denies any tobacco usage or history of. ROS: 14:31 Constitutional: Negative for fever, chills, and weight loss. pm1 14:31 Respiratory: Negative for shortness of breath, cough, wheezing, and pleuritic chest pain, Abdomen/GI: Negative for abdominal pain, nausea, vomiting, diarrhea, and constipation, Back: Negative for injury and pain, MS/Extremity: Negative for injury and deformity, Skin: Negative for injury, rash, and discoloration. 14:31 Cardiovascular: Positive for chest pain, palpitations, Negative for edema. 14:31 Neuro: Positive for dizziness, numbness, tingling, of the bilateral hands and feet. 14:31 Psych: Positive for anxiety, Negative for depression. 14:31 All other systems are negative. Exam: 14:31 Constitutional: This is a well developed, well nourished patient who is awake, alert, pm1 and in no acute distress. Head/Face: Normocephalic, atraumatic. Neck: Trachea midline, no thyromegaly or masses palpated, and no cervical lymphadenopathy. Supple, full range of motion without nuchal rigidity, or vertebral point tenderness. No Meningismus. Chest/axilla: Normal chest wall appearance and motion. Nontender with no deformity. No lesions are appreciated. Cardiovascular: Regular rate and rhythm with a normal S1 and S2. No gallops, murmurs, or rubs. Normal PMI, no JVD. No pulse deficits. Respiratory: Lungs have equal breath sounds bilaterally, clear to auscultation and percussion. No rales, rhonchi or wheezes noted. No increased work of breathing, no retractions or nasal flaring. Abdomen/GI: Soft, non-tender, with normal bowel sounds. No distension or tympany. No guarding or rebound. No evidence of tenderness throughout. Back: No spinal tenderness. No costovertebral tenderness. Full range of motion. Skin: Warm, dry with normal turgor. Normal color with no rashes, no lesions, and no evidence of cellulitis. MS/ Extremity: Pulses equal, no cyanosis. Neurovascular intact. Full, normal range of motion. 14:31 Neuro: Exam negative for acute changes, Orientation: is normal, Mentation: is normal, Motor: is normal, moves all fours. Vital Signs: 13:49 Pulse 62; Resp 17; Temp 97.4(TE); Pulse Ox 98% on R/A; Weight 63.5 kg (R); Height 5 ft. tw2 0 in. (152.40 cm); Pain 9/10; 14:00 BP 115 / 67; Pulse 58; Resp 20; Pulse Ox 99% on R/A; vc 15:00 BP 106 / 84; Pulse 56; Resp 20; Pulse Ox 99% on R/A; vc 15:30 BP 129 / 69; Pulse 63; Resp 14; Pulse Ox 100% ; vc 13:49 Body Mass Index 27.34 (63.50 kg, 152.40 cm) tw2 MDM: 13:50 Patient medically screened. pm1 14:34 Data reviewed: vital signs. pm1 14:52 ED course: AEROBICS INSTRUCTOR aware reviewed. Last medication prescribed on 07/25/2018 for Tylenol #3. pm1 15:32 Data interpreted: Pulse oximetry: on room air is 99 %. Interpretation: normal. pm1 15:32 ECG:. pm1 04/25 13:50 Order name: Basic Metabolic Panel; Complete Time: 14:41 pm1 04/25 13:50 Order name: CBC with Diff pm1 04/25 13:50 Order name: LFT's; Complete Time: 14:41 pm1 04/25 13:50 Order name: Magnesium; Complete Time: 14:41 pm1 04/25 13:50 Order name: NT PRO-BNP; Complete Time: 14:41 pm1 04/25 13:50 Order name: PT-INR; Complete Time: 14:47 pm1 04/25 13:50 Order name: Troponin (emerg Dept Use Only); Complete Time: 14:41 pm1 04/25 13:50 Order name: XRAY Chest (1 view); Complete Time: 14:34 pm1 04/25 13:50 Order name: EKG; Complete Time: 13:52 pm1 04/25 13:50 Order name: Cardiac monitoring; Complete Time: 14:07 pm04/25 13:50 Order name: EKG - Nurse/Tech; Complete Time: 14:07 pm1 04/25 13:50 Order name: IV Saline Lock; Complete Time: 14:20 pm1 04/25 13:50 Order name: Labs collected and sent; Complete Time: 14:20 pm1 04/25 13:50 Order name: O2 Per Protocol; Complete Time: 14:20 pm1 04/25 13:50 Order name: O2 Sat Monitoring; Complete Time: 14:20 pm1 EC:32 Rate is 55 beats/min. Rhythm is regular, Sinus bradycardia with No ectopy. No Q waves. pm1 T waves are Normal. No ST changes noted. Clinical impression: Normal ECG and Sinus bradycardia. Administered Medications: 16:08 Drug: Ativan 0.5 mg Route: PO; vc 16:14 Follow up: Response: No adverse reaction; Medication administered at discharge. vc Disposition: 17:01 Co-signature as Attending Physician, Renan Montiel MD. rn Disposition: 04/26/19 15:34 Discharged to Home. Impression: Chest pain, unspecified, Paresthesia of skin, Anxiety disorder, unspecified. - Condition is Stable. - Discharge Instructions: Panic Attacks, Nonspecific Chest Pain, Paresthesia, Stress and Stress Management, Generalized Anxiety Disorder. - Prescriptions for Ativan 0.5 mg Oral Tablet - take 1 tablet by ORAL route every 8 hours As needed; 10 tablet. - Medication Reconciliation Form, Thank You Letter, Antibiotic Education, Prescription Opioid Use, Work release form form. - Follow up: Emergency Department; When: As needed; Reason: Worsening of condition. Follow up: Private Physician; When: 2 - 3 days; Reason: Recheck today's complaints, Continuance of care, Re-evaluation by your physician. - Problem is new. - Symptoms have improved. Signatures: Dispatcher [employer] EDMS Renan Montiel MD MD rn Prem Pritchett, RETAIL ACCOUNT MANAGER RETAIL ACCOUNT MANAGER pm1 Belen Henry RN RN vc Corrections: (The following items were deleted from the chart) 16:15 15:34 04/26/2019 15:34 Discharged to Home. Impression: Chest pain, unspecified; vc Paresthesia of skin; Anxiety disorder, unspecified. Condition is Stable. Forms are Medication Reconciliation Form, Thank You Letter, Antibiotic Education, Prescription Opioid Use. Follow up: Emergency Department; When: As needed; Reason: Worsening of condition. Follow up: Private Physician; When: 2 - 3 days; Reason: Recheck today's complaints, Continuance of care, Re-evaluation by your physician. Problem is new. Symptoms have improved. pm1
[2019-04-26] MEDS ORDERED: LORAZEPAM 0.5 MG TABLET ONE (16:07)
[2019-04-26 16:30] VITALS: TEMP 97.4
[2019-04-26 16:34] VITALS: BP 129/69; O2SAT 100
[2019-04-26 16:41] LABS: Blood Morphology Comment NOT SEEN (NOT SEEN); Platelet Estimate ADEQ
--- NOTE | 2019-04-27 06:29 | EKG ---
Test Date: 2019-04-26 Test Time: 14:02:48 Bindery Machine Feeder Offbearer: BERENICE MEASUREMENT RESULTS: Intervals: Rate: 55 IA: 146 QRSD: 74 QT: 440 QTc: 420 [place]: P: 54 IA: 146 QRS: 78 T: 52 INTERPRETIVE STATEMENTS: Sinus bradycardia Otherwise normal ECG Compared to ECG 07/19/2017 22:54:09 Sinus rhythm no longer present Electronically Signed On 04-27-19 06:28:18 CDT by Pedro Martin
== END 2019-04-26 16:15 | disposition home or self-care (01) ==
LOC: ER 13:39
DX: F41.9 Anxiety disorder, unspecified (principal); R20.2 Paresthesia of skin; Z88.6 Allergy status to analgesic agent
CPT/HCPCS: 36415; 71045; 80048; 80076; 83735; 83880; 84484; 85025; 85610; 93005; 99285

== ENCOUNTER 2019-06-20 09:41 | Emergency (ER) | payer SELFPAY ==
--- OUTSIDE RECORDS SUMMARY | 2019-06-20 09:46 | XMS REPORT ---
:1975 Author Organization [facility] t Address [address] [place] [address] Care Team Providers Name Role Phone Unavailable [...] DIGITALBILATERAL FIRST EVER DIGITAL SCREENING MAMMOGRAM WITH CAD : 12/19/2017CLINICAL: Asymptom atic. Current mammographic images were evaluated by either a [employer] Culture M-Vu or a [employer] Surgical ImageChecker CA D (computer aided detection sy stem). No prior exams were availabl e for comparison. The tissue of b oth breasts is heterogeneously d ense. This may lower the sensitivi ty of mammography. There is an ov al low density mass measuring 1.8 c m in the lower inner quadrant of the right breast at middle depth . Prominent axillary nodes are noted bilaterally.No other signifi cant masses, calcifications, or o ther findings are seen in either breast. IMPRESSION: INCOMPLETE ASSE SSMENT: ADDITIONAL IMAGING EVALUATIO N RECOMMENDEDThe oval low dens ity mass in the right breast is indeterminate. Prominent bi lateral axillary lymph nodes. Addit ional views with possible ultrasou nd are recommended. Axillary ultra sound is recommended for evaluatio n of prominent lymph nodes.Esme Chiang M.D. el/:12/25/2017 15:48:[address]: Jesusita Giron MM, [facility] Mammographyletter sent: [place] tional Imaging Mammogram BI-RADS: 0 Indeterminate
--- NOTE | 2019-06-20 10:37 | EDPHYS ---
Physician Documentation [facility] Name: Sobia Ang Age: 44 yrs Sex: Female : 1975 Arrival Date: 06/20/2019 Time: 09:43 Bed 18 Private MD: ED Physician Alex Malik HPI: 06/19 10:31 This 44 yrs old Female presents to ER via Ambulatory with complaints of saumya Abscess. 10:31 The patient presents with cellulitis of the posterior aspect of right lateral abdomen. saumya Description: The affected area is small, confluent, erythematous. Onset: The symptoms/episode began/occurred 2 day(s) ago. Possible cause(s): unknown, chronic skin condition. Associated signs and symptoms: The patient has no apparent associated signs or symptoms. Modifying factors: the symptoms are alleviated by nothing, the symptoms are aggravated by pressure, squeezing the lesion and expressing the contents, touching. Severity of symptoms: At their worst the symptoms were mild, in the emergency department the symptoms are unchanged. The patient has experienced similar episodes in the past, multiple times. 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 - Family history:: not pertinent. - Social history:: Smoking status: Patient denies any tobacco usage or history of. ROS: 10:31 Constitutional: Negative for fever, chills, and weight loss, Eyes: Negative for injury, saumya pain, redness, and discharge, ENT: Negative for injury, pain, and discharge, Neck: Negative for injury, pain, and swelling, Cardiovascular: Negative for chest pain, palpitations, and edema, Respiratory: Negative for shortness of breath, cough, wheezing, and pleuritic chest pain, Abdomen/GI: Negative for abdominal pain, nausea, vomiting, diarrhea, and constipation, Back: Negative for injury and pain, : Negative for injury, bleeding, discharge, and swelling, MS/Extremity: Negative for injury and deformity, Neuro: Negative for headache, weakness, numbness, tingling, and seizure, Psych: Negative for depression, anxiety, suicide ideation, homicidal ideation, and hallucinations, Allergy/Immunology: Negative for hives, rash, and allergies, Endocrine: Negative for neck swelling, polydipsia, polyuria, polyphagia, and marked weight changes, Hematologic/Lymphatic: Negative for swollen nodes, abnormal bleeding, and unusual bruising. 10:31 Skin: Positive for abscess, cellulitis, erythema, swelling, of the right mid back. Exam: 10:31 Constitutional: This is a well developed, well nourished patient who is awake, alert, saumya and in no acute distress. Head/Face: Normocephalic, atraumatic. Eyes: Pupils equal round and reactive to light, extra-ocular motions intact. Lids and lashes normal. Conjunctiva and sclera are non-icteric and not injected. Cornea within normal limits. Periorbital areas with no swelling, redness, or edema. ENT: Nares patent. No nasal discharge, no septal abnormalities noted. Tympanic membranes are normal and external auditory canals are clear. Oropharynx with no redness, swelling, or masses, exudates, or evidence of obstruction, uvula midline. Mucous membranes moist. Neck: Trachea midline, no thyromegaly or masses palpated, and no cervical lymphadenopathy. Supple, full range of motion without nuchal rigidity, or vertebral point tenderness. No Meningismus. Chest/axilla: Normal chest wall appearance and motion. Nontender with no deformity. No lesions are appreciated. Cardiovascular: Regular rate and rhythm with a normal S1 and S2. No gallops, murmurs, or rubs. Normal PMI, no JVD. No pulse deficits. Respiratory: Lungs have equal breath sounds bilaterally, clear to auscultation and percussion. No rales, rhonchi or wheezes noted. No increased work of breathing, no retractions or nasal flaring. Abdomen/GI: Soft, non-tender, with normal bowel sounds. No distension or tympany. No guarding or rebound. No evidence of tenderness throughout. Back: No spinal tenderness. No costovertebral tenderness. Full range of motion. MS/ Extremity: Pulses equal, no cyanosis. Neurovascular intact. Full, normal range of motion. Neuro: Awake and alert, GCS 15, oriented to person, place, time, and situation. Cranial nerves II-XII grossly intact. Motor strength 5/5 in all extremities. Sensory grossly intact. Cerebellar exam normal. Normal gait. Psych: Awake, alert, with orientation to person, place and time. Behavior, mood, and affect are within normal limits. 10:31 Skin: abscess, that is small, of the left mid back, cellulitis, that is minimal, induration, that is mild is noted. Vital Signs: 09:52 BP 116 / 68; Pulse 73; Resp 16 S; Temp 98.2(O); Pulse Ox 100% on R/A; aa5 10:50 BP 126 / 88; Pulse 78; Resp 17 S; Pulse Ox 100% on R/A; ca1 MDM: 09:55 Patient medically screened. saumya 10:31 Data reviewed: vital signs, nurses notes. saumya 10:38 Differential diagnosis: abscess, cellulitis, insect bite. Data interpreted: Cardiac saumya monitor: not applicable for this patient encounter. Pulse oximetry: on room air is 100 %. Test interpretation: by ED physician or midlevel provider: not applicable. ED course: hx chronic skin condition, abscess, cellulitis, no fever, will follow up, hx of this issue, usually resolves with abx. Administered Medications: 10:42 Drug: Tylenol 650 mg Route: PO; ca1 10:52 Follow up: Response: Medication administered at discharge. ca1 10:43 Drug: Doxycycline 100 mg Route: PO; ca1 10:52 Follow up: Response: Medication administered at discharge. ca1 10:44 Drug: Bactrim (160 mg-800 mg (DS) 1 tablet Route: PO; ca1 10:52 Follow up: Response: Medication administered at discharge. ca1 Disposition: 06/20/19 10:37 Discharged to Home. Impression: Cutaneous abscess of abdominal wall. - Condition is Stable. - Discharge Instructions: Skin Abscess, Cellulitis, Adult, Skin Abscess, [id number], Cellulitis, Adult, [id number]. - Prescriptions for Tylenol- Codeine #3 300-30 mg Oral Tablet - take 2 tablets by ORAL route every 6 hours As needed; 20 tablet. Doxycycline Hyclate 100 mg Oral Tablet - take 1 tablet by ORAL route every 12 hours; 20 tablet. Bactrim DS 800- 160 mg Oral Tablet - take 1 tablet by ORAL route every 12 hours for 10 days; 20 tablet. - Medication Reconciliation Form, Thank You Letter, Antibiotic Education, Prescription Opioid Use, Work release form form. - Follow up: Private Physician; When: 2 - 3 days; Reason: Recheck today's complaints, Continuance of care, Re-evaluation by your physician. Follow up: Ethan Pa MD; When: 2 - 3 days; Reason: Recheck today's complaints, Re-evaluation by your physician. - Problem is new. - Symptoms have improved. Signatures: Alex Malik MD MD cha Calderon, Audri, RN RN aa5 Tracey Adam RN RN ca1 Corrections: (The following items were deleted from the chart) 10:53 10:37 06/20/2019 10:37 Discharged to Home. Impression: Cutaneous abscess of abdominal ca1 wall. Condition is Stable. Forms are Medication Reconciliation Form, Thank You Letter, Antibiotic Education, Prescription Opioid Use. Follow up: Private Physician; When: 2 - 3 days; Reason: Recheck today's complaints, Continuance of care, Re-evaluation by your physician. Follow up: Dr. Ethan Pa; When: 2 - 3 days; Reason: Recheck today's complaints, Re-evaluation by your physician. Problem is new. Symptoms have improved. saumya
--- NOTE | 2019-06-20 10:37 | ER ---
Nurse's Notes [facility] Name: Sobia Ang Age: 44 yrs Sex: Female : 1975 Arrival Date: 06/20/2019 Time: 09:43 Bed 18 Private MD: Diagnosis: Cutaneous abscess of abdominal wall Presentation: 06/19 09:52 Chief complaint: Patient states: "I have a boil on my side (right lateral aspect of aa5 abdomen)". 09:52 Coronavirus screen: Proceed with normal triage. Patient denies a cough. Patient denies aa5 shortness of breath or difficulty breathing. Patient denies measured and/or subjective temperature greater than 100.4F prior to today's visit. Patient denies travel on a cruise ship or to a country the [facility] currently lists as an affected area. Patient denies contact with known and/or suspected case of COVID-19. Ebola Screen: Patient negative for fever greater than or equal to 101.5 degrees Fahrenheit, and additional compatible Ebola Virus Disease symptoms. Initial Sepsis Screen: Does the patient meet any 2 criteria? No. Patient's initial sepsis screen is negative. Does the patient have a suspected source of infection? No. Patient's initial sepsis screen is negative. Risk Assessment: Do you want to hurt yourself or someone else? Patient reports no desire to harm self or others. Onset of symptoms was June 2019. 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 - Family history:: not pertinent. - Social history:: Smoking status: Patient denies any tobacco usage or history of. Screenin:05 Abuse screen: Denies threats or abuse. Denies injuries from another. Nutritional ca1 screening: No deficits noted. Tuberculosis screening: No symptoms or risk factors identified. Fall Risk None identified. Assessment: 10:05 General: Appears in no apparent distress. comfortable, Behavior is calm, cooperative, ca1 appropriate for age. Pain: Complains of pain in posterior aspect of right lateral abdomen Pain currently is 7 out of 10 on a pain scale. Pain: Pain began 1 day ago. Neuro: Level of Consciousness is awake, alert, obeys commands, Oriented to person, place, time, situation, Appropriate for age. Derm: Skin is intact, is healthy with good turgor, Skin is pink, warm \\T\\ dry. Abscess located on posterior aspect of right lateral abdomen is quarter sized, has no drainage, is raised. Musculoskeletal: Circulation, motion, and sensation intact. Capillary refill < 3 seconds. 10:50 Reassessment: Patient appears in no apparent distress at this time. Patient is alert, ca1 oriented x 3, equal unlabored respirations, skin warm/dry/pink. Vital Signs: 09:52 BP 116 / 68; Pulse 73; Resp 16 S; Temp 98.2(O); Pulse Ox 100% on R/A; aa5 10:50 BP 126 / 88; Pulse 78; Resp 17 S; Pulse Ox 100% on R/A; ca1 ED Course: 09:43 Patient arrived in ED. as 09:52 Arm band placed on Patient placed in an exam room, on a stretcher. aa5 09:55 Alex Malik MD is Attending Physician. saumya 10:05 Triage completed. aa5 10:05 Patient has correct armband on for positive identification. Bed in low position. Call ca1 light in reach. Side rails up X 1. Pulse ox on. NIBP on. Warm blanket given. 10:05 No provider procedures requiring assistance completed. Patient did not have IV access ca1 during this emergency room visit. 10:07 Tracey Adam RN is Primary Nurse. ca1 10:36 Ethan Pa MD is Referral Physician. saumya Administered Medications: 10:42 Drug: Tylenol 650 mg Route: PO; ca1 10:52 Follow up: Response: Medication administered at discharge. ca1 10:43 Drug: Doxycycline 100 mg Route: PO; ca1 10:52 Follow up: Response: Medication administered at discharge. ca1 10:44 Drug: Bactrim (160 mg-800 mg (DS) 1 tablet Route: PO; ca1 10:52 Follow up: Response: Medication administered at discharge. ca1 Outcome: 10:37 Discharge ordered by . saumya 10:52 Discharged to home ambulatory. ca1 10:52 Condition: good 10:52 Discharge instructions given to patient, Instructed on discharge instructions, follow up and referral plans. no drinking with medication, no driving heavy equipment, medication usage, Demonstrated understanding of instructions, follow-up care, medications, Prescriptions given X 3. 10:53 Patient left the ED. ca1 Signatures: Alex Malik MD MD cha Martinez, Amelia as Calderon, Audri, RN RN aa5 Tracey Adam RN RN ca1
[2019-06-20] MEDS ORDERED: ACETAMINOPHEN 325 MG TABLET ONE (10:51)
[2019-06-20] MEDS ORDERED: DOXYCYCLINE 100 MG CAP PO ONE (10:52)
[2019-06-20] MEDS ORDERED: SMZ./TMP. 800/160 MG TABLET ONE (10:52)
[2019-06-20 10:59] VITALS: TEMP 98.2; O2SAT 100
[2019-06-20 11:00] VITALS: BP 126/88
== END 2019-06-20 10:53 | disposition home or self-care (01) ==
LOC: ER 09:41
DX: L02.211 Cutaneous abscess of abdominal wall (principal); L03.312 Cellulitis of back [any part except buttock and flank]; Z88.6 Allergy status to analgesic agent
CPT/HCPCS: 99283

== ENCOUNTER 2019-07-01 18:52 | Emergency (ER) | payer SELFPAY ==
--- OUTSIDE RECORDS SUMMARY | 2019-07-01 18:54 | XMS REPORT ---
:1975 Author Organization [facility] t Address [address] [place] [address] Care Team Providers Name Role Phone Unavailable [...] mammographic images were evaluated by either a [employer] M-Vu or a [employer] ImageChecker CA D (computer aided detection sy [...] Imaging Technologi st: Jesusita Giron MM, [facility] Mammographyletter sent: [place] tional Imaging Mammogram BI-RADS: 0 Indeterminate
--- NOTE | 2019-07-01 19:33 | ER ---
Nurse's Notes [facility] Name: Sobia Ang Age: 44 yrs Sex: Female : 1975 Arrival Date: 07/01/2019 Time: 18:55 Bed 18 Private MD: Diagnosis: Conjunctivitis;Hordeolum externum left upper eyelid Presentation: 06/30 19:02 Chief complaint: Patient states: Woke at 12 noon today noticed something in both eyes, ca1 right now it's throbbing. Also, have rashes on L leg that started this morning. Coronavirus screen: Proceed with normal triage. Patient denies a cough. Patient denies shortness of breath or difficulty breathing. Patient denies measured and/or subjective temperature greater than 100.4F prior to today's visit. Patient denies travel on a cruise ship or to a country the [facility] currently lists as an affected area. Patient denies contact with known and/or suspected case of COVID-19. Ebola Screen: Patient negative for fever greater than or equal to 101.5 degrees Fahrenheit, and additional compatible Ebola Virus Disease symptoms Patient denies exposure to infectious person. Patient denies travel to an Ebola-affected area in the 21 days before illness onset. No symptoms or risks identified at this time. Initial Sepsis Screen: Does the patient meet any 2 criteria? No. Patient's initial sepsis screen is negative. Does the patient have a suspected source of infection? No. Patient's initial sepsis screen is negative. Risk Assessment: Do you want to hurt yourself or someone else? Patient reports no desire to harm self or others. Onset of symptoms was July 01, 2019. 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 - Social history:: Smoking status: Patient denies any tobacco usage or history of. - Family history:: not pertinent. - Hospitalizations: : No recent hospitalization is reported. Screenin:10 Abuse screen: Denies threats or abuse. Denies injuries from another. Nutritional wh screening: No deficits noted. Tuberculosis screening: No symptoms or risk factors identified. Fall Risk None identified. Assessment: 19:15 General: Appears in no apparent distress. Behavior is calm, cooperative, appropriate wh for age. Pain: Complains of pain in right eye and left eye. Neuro: Level of Consciousness is awake, alert, obeys commands, Oriented to person, place, time, situation, Appropriate for age. Cardiovascular: Capillary refill < 3 seconds. Respiratory: Airway is patent Respiratory effort is even, unlabored, Respiratory pattern is regular, symmetrical. GI: Abdomen is flat, non-distended. : No signs and/or symptoms were reported regarding the genitourinary system. EENT: Eyes clear. Derm: Skin is intact, is healthy with good turgor, Skin is pink, warm \T\ dry. normal. Musculoskeletal: Circulation, motion, and sensation intact. Vital Signs: 19:02 BP 107 / 57; Pulse 59; Resp 16 S; Temp 98(TE); Pulse Ox 100% on R/A; Weight 63.5 kg ca1 (R); Height 5 ft. 0 in. (152.40 cm) (R); 19:02 Body Mass Index 27.34 (63.50 kg, 152.40 cm) ca1 ED Course: 18:55 Patient arrived in ED. mr 19:04 Triage completed. ca1 19:06 Arm band placed on right wrist. ca1 19:07 Iva Hernandez is Primary Nurse. wh 19:10 Patient has correct armband on for positive identification. Bed in low position. Call light in reach. Side rails up X 1. Pulse ox on. NIBP on. 19:20 Renan Montiel MD is Attending Physician. rn 19:38 No provider procedures requiring assistance completed. Patient did not have IV access during this emergency room visit. Administered Medications: No medications were administered Outcome: 19:32 Discharge ordered by . rn 19:38 Discharged to home ambulatory. 19:38 Condition: stable 19:38 Discharge instructions given to patient, Instructed on discharge instructions, follow up and referral plans. medication usage, POC Demonstrated understanding of instructions, follow-up care, medications, POC Prescriptions given X 1. 19:43 Patient left the ED. Signatures: Talita Barrientos mr Renan Montiel MD MD rn Habalo, Tracey Becker, ANNA RN ca1
--- NOTE | 2019-07-01 19:33 | EDPHYS ---
Physician Documentation [facility] Name: Sobia Ang Age: 44 yrs Sex: Female : 1975 Arrival Date: 07/01/2019 Time: 18:55 Bed 18 Private MD: ED Physician Renan Montiel HPI: 06/30 19:28 This 44 yrs old Female presents to ER via Ambulatory with complaints of Eye rn Problem. 19:28 The patient is experiencing matting or discharge, redness, The patient sustained None. rn to both eyes, caused by an unknown mechanism. Onset: The symptoms/episode began/occurred this morning. Duration: the symptoms are continuous. Aggravated by nothing. Alleviated by nothing. Severity of symptoms: At their worst the symptoms were mild in the emergency department the symptoms are unchanged. The patient has not experienced similar symptoms in the past. Reports both eyes began draining this AM, no trauma or injury, no foreign body, reports some swelling to left upper eyelid that is tender to touch, already on bactrim for lower leg infection. Reports works at [employer] and not sure if exposed to anything. No loss of vision, pain is external to eyeball.. 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 - Social history:: Smoking status: Patient denies any tobacco usage or history of. - Family history:: not pertinent. - Hospitalizations: : No recent hospitalization is reported. ROS: 19:28 Constitutional: Negative for fever, chills, and weight loss, Eyes: + redness and rn drainage to eyes Exam: 19:28 Constitutional: This is a well developed, well nourished patient who is awake, alert, rn and in no acute distress. Head/Face: Normocephalic, atraumatic. Eyes: Pupils equal round and reactive to light, extra-ocular motions intact. + left upper inner lid with stye, + bilateral ocular erythema and injection that is mild, with some matteing of both eyes. No foreign body noted. Vital Signs: 19:02 BP 107 / 57; Pulse 59; Resp 16 S; Temp 98(TE); Pulse Ox 100% on R/A; Weight 63.5 kg ca1 (R); Height 5 ft. 0 in. (152.40 cm) (R); 19:02 Body Mass Index 27.34 (63.50 kg, 152.40 cm) ca1 MDM: 19:20 Patient medically screened. rn 19:28 Differential diagnosis: Data reviewed: vital signs, nurses notes, and as a result, I rn will discharge patient. Counseling: I had a detailed discussion with the patient and/or guardian regarding: the historical points, exam findings, and any diagnostic results supporting the discharge/admit diagnosis, the need for outpatient follow up, to return to the emergency department if symptoms worsen or persist or if there are any questions or concerns that arise at home. Special discussion: I discussed with the patient/guardian in detail that at this point there is no indication for admission to the hospital. It is understood, however, that if the symptoms persist or worsen the patient needs to return immediately for re-evaluation. ED course: Will dc home with abx drops, and warm compresses for left eyelid, recommended OTC stye medication as well. . 19:28 Special discussion: Based on the history and exam findings, there is no indication for rn further emergent testing or inpatient evaluation. I discussed with the patient/guardian the need to see the opthamologist for further evaluation of the symptoms. Administered Medications: No medications were administered Disposition: 07/01/19 19:32 Discharged to Home. Impression: Conjunctivitis, Hordeolum externum left upper eyelid. - Condition is Stable. - Discharge Instructions: Bacterial Conjunctivitis, Stye, Viral Conjunctivitis. - Prescriptions for Vigamox 0.5 % Ophthalmic Drops - instill 1 drop by OPHTHALMIC route every 8 hours for 7 days; 5 milliliter. - Medication Reconciliation Form, Thank You Letter, Antibiotic Education, Prescription Opioid Use, Work release form form. - Follow up: Private Physician; When: As needed; Reason: Recheck today's complaints, Re-evaluation by your physician. - Problem is new. - Symptoms have improved. Signatures: Renan Montiel MD MD rn Habalo, Winsy wh Acob, Cheryl, RN RN ca1 Corrections: (The following items were deleted from the chart) 19:43 19:32 07/01/2019 19:32 Discharged to Home. Impression: Conjunctivitis; Hordeolum wh externum left upper eyelid. Condition is Stable. Forms are Medication Reconciliation Form, Thank You Letter, Antibiotic Education, Prescription Opioid Use. Follow up: Private Physician; When: As needed; Reason: Recheck today's complaints, Re-evaluation by your physician. Problem is new. Symptoms have improved. rn
[2019-07-01 20:02] VITALS: BP 107/57; TEMP 98; O2SAT 100
== END 2019-07-01 19:43 | disposition home or self-care (01) ==
LOC: ER 18:52
DX: H00.014 Hordeolum externum left upper eyelid (principal); Z88.6 Allergy status to analgesic agent
CPT/HCPCS: 99283

== ENCOUNTER 2019-07-22 17:18 | Emergency (ER) | payer SELFPAY ==
--- OUTSIDE RECORDS SUMMARY | 2019-07-22 17:20 | XMS REPORT | Continuity of Care Document ---
:1975 Author Organization [facility] t Address [address] [place] [address] Care Team Providers Name Role Phone Unavailable Unavailable Unavailable Problems This patient has no known problems. Allergies, Adverse Reactions, Alerts This patient has no known allergies or adverse reactions. Medications This patient has no known medications. Procedures This patient has no known procedures. Results Test Description Test Time Test Comments Results Result Sour e Comments SCR MAMM 2017-12-25 SCR MAMM BILATERAL BILATERAL CAD 15:48:19 CAD DIGITALBILATERAL DIGITAL FIRST EVER DIGITAL SCREENING MAMMOGRAM WITH CAD: 12/19/2017CLINICAL: Asymptomatic. Current mammographic images were evaluated by either a [employer] M-Vu or a [employer] ImageChecker CAD (computer aided detection system). No [...] prominent lymph nodes.Esme Chiang M.D. el/:12/25/2017 15:48:19 Manager Media Relations: Jesusita Giron MM, [facility] Mammographyletter sent: Additional Imaging Mammogram BI-RADS: 0 Indeterminate
--- NOTE | 2019-07-22 19:26 | EDPHYS ---
Physician Documentation [facility] Name: Sobia Ang Age: 44 yrs Sex: Female : 1975 Arrival Date: 07/22/2019 Time: 17:24 Bed 5 Private MD: Alex Cornejo HPI: 07/21 19:20 This 44 yrs old Female presents to ER via Ambulatory with complaints of Boils saumya On Buttock. 19:20 The patient presents with an abscess of the left gluteus tu, The patient presents saumya with cellulitis of the buttocks. Description: The affected area is very small, localized, erythematous. Onset: The symptoms/episode began/occurred 3 day(s) ago. Possible cause(s): unknown. Associated signs and symptoms: The patient has no apparent associated signs or symptoms. Modifying factors: the symptoms are alleviated by remaining still, sitz bath, the symptoms are aggravated by movement, squeezing the lesion and expressing the contents. Severity of symptoms: At their worst the symptoms were mild. The patient has experienced similar episodes in the past, multiple times. 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 - Social history:: Smoking status: Patient denies any tobacco usage or history of. - Family history:: not pertinent. ROS: 19:20 Constitutional: Negative for fever, chills, and weight loss, Eyes: Negative for injury, saumya pain, redness, and discharge, ENT: Negative for injury, pain, and discharge, Neck: Negative for injury, pain, and swelling, Cardiovascular: Negative for chest pain, palpitations, and edema, Respiratory: Negative for shortness of breath, cough, wheezing, and pleuritic chest pain, Abdomen/GI: Negative for abdominal pain, nausea, vomiting, diarrhea, and constipation, Back: Negative for injury and pain, : Negative for injury, bleeding, discharge, and swelling, MS/Extremity: Negative for injury and deformity, Neuro: Negative for headache, weakness, numbness, tingling, and seizure, Psych: Negative for depression, anxiety, suicide ideation, homicidal ideation, and hallucinations, Allergy/Immunology: Negative for hives, rash, and allergies, Endocrine: Negative for neck swelling, polydipsia, polyuria, polyphagia, and marked weight changes, Hematologic/Lymphatic: Negative for swollen nodes, abnormal bleeding, and unusual bruising. 19:20 Skin: Positive for abscess, cellulitis, of the left gluteus tu. Exam: 19:20 Constitutional: This is a well developed, well nourished patient who is awake, alert, saumya and in no acute distress. Head/Face: Normocephalic, atraumatic. Eyes: Pupils equal round and reactive to light, extra-ocular motions intact. Lids and lashes normal. Conjunctiva and sclera are non-icteric and not injected. Cornea within normal limits. Periorbital areas with no swelling, redness, or edema. ENT: Nares patent. No nasal discharge, no septal abnormalities noted. Tympanic membranes are normal and external auditory canals are clear. Oropharynx with no redness, swelling, or masses, exudates, or evidence of obstruction, uvula midline. Mucous membranes moist. Neck: Trachea midline, no thyromegaly or masses palpated, and no cervical lymphadenopathy. Supple, full range of motion without nuchal rigidity, or vertebral point tenderness. No Meningismus. Chest/axilla: Normal chest wall appearance and motion. Nontender with no deformity. No lesions are appreciated. Cardiovascular: Regular rate and rhythm with a normal S1 and S2. No gallops, murmurs, or rubs. Normal PMI, no JVD. No pulse deficits. Respiratory: Lungs have equal breath sounds bilaterally, clear to auscultation and percussion. No rales, rhonchi or wheezes noted. No increased work of breathing, no retractions or nasal flaring. Abdomen/GI: Soft, non-tender, with normal bowel sounds. No distension or tympany. No guarding or rebound. No evidence of tenderness throughout. Back: No spinal tenderness. No costovertebral tenderness. Full range of motion. Female : Normal external genitalia. MS/ Extremity: Pulses equal, no cyanosis. Neurovascular intact. Full, normal range of motion. Neuro: Awake and alert, GCS 15, oriented to person, place, time, and situation. Cranial nerves II-XII grossly intact. Motor strength 5/5 in all extremities. Sensory grossly intact. Cerebellar exam normal. Normal gait. Psych: Awake, alert, with orientation to person, place and time. Behavior, mood, and affect are within normal limits. 19:20 Skin: abscess, that is small, cellulitis, that is minimal, induration, that is mild is noted, located on the left gluteus tu. Vital Signs: 17:50 BP 123 / 87; Pulse 69; Resp 18; Temp 97.6; Pulse Ox 100% on R/A; Weight 63.5 kg; Height ph 5 ft. 4 in. (162.56 cm); 19:38 BP 121 / 86; Pulse 66; Resp 16; Temp 98; Pulse Ox 100% on R/A; rv 17:50 Body Mass Index 24.03 (63.50 kg, 162.56 cm) ph MDM: 19:09 Patient medically screened. [facility] 19:23 Differential diagnosis: abscess, cellulitis, insect bite. Data reviewed: vital signs, [facility] nurses notes. Data interpreted: school bus monitor: not applicable for this patient encounter. Pulse oximetry: on room air is 100 %. Counseling: I had a detailed discussion with the patient and/or guardian regarding: the historical points, exam findings, and any diagnostic results supporting the discharge/admit diagnosis, the need for outpatient follow up, for definitive care, a general surgeon. ED course: explained that lesion was small, best treated by abx and sitz baths, pt agrees to follow up and will retturn if symptoms worsen or persist. Administered Medications: No medications were administered Disposition: 07/22/19 19:26 Discharged to Home. Impression: Cutaneous abscess of buttock - small. - Condition is Stable. - Discharge Instructions: Skin Abscess, Eczema, How to Take a Sitz Bath, Skin Abscess, [id number]. - Prescriptions for Doxycycline Hyclate 100 mg Oral Tablet - take 1 tablet by ORAL route every 12 hours; 14 tablet. Bactrim DS 800- 160 mg Oral Tablet - take 1 tablet by ORAL route every 12 hours for 7 days; 14 tablet. - Work release form, Medication Reconciliation Form, Thank You Letter, Antibiotic Education, Prescription Opioid Use form. - Follow up: Private Physician; When: 2 - 3 days; Reason: Recheck today's complaints, Continuance of care, Re-evaluation by your physician. Follow up: Edilberto Murray MD; When: 2 - 3 days; Reason: Recheck today's complaints, Re-evaluation by your physician. - Problem is new. - Symptoms have improved. Signatures: Alex Malik MD MD cha Hall, Patricia, RN RN Kaleb Rodas RN RN rv Corrections: (The following items were deleted from the chart) 19:39 19:26 07/22/2019 19:26 Discharged to Home. Impression: Cutaneous abscess of buttock - rv small. Condition is Stable. Forms are Medication Reconciliation Form, Thank You Letter, Antibiotic Education, Prescription Opioid Use. Follow up: Private Physician; When: 2 - 3 days; Reason: Recheck today's complaints, Continuance of care, Re-evaluation by your physician. Follow up: Edilberto Murray; When: 2 - 3 days; Reason: Recheck today's complaints, Re-evaluation by your physician. Problem is new. Symptoms have improved. saumya
--- NOTE | 2019-07-22 19:26 | ER ---
Nurse's Notes [facility] Name: Sobia Ang Age: 44 yrs Sex: Female : 1975 Arrival Date: 07/22/2019 Time: 17:24 Bed 5 Private MD: Diagnosis: Cutaneous abscess of buttock-small Presentation: 07/21 17:50 Chief complaint: Patient states: Boils on buttocks, states, " I have a skin condition ph called [facility] and it flared up a few weeks ago and they put me on Bactrim and Keflex but the places on my butt haven't gotten any better." Denies fever, multiple small raised areas noted to gluteal cleft. Coronavirus screen: Patient denies a cough. Patient denies shortness of breath or difficulty breathing. Patient denies measured and/or subjective temperature greater than 100.4F prior to today's visit. Patient denies travel on a cruise ship or to a country the [facility] currently lists as an affected area. Patient denies contact with known and/or suspected case of COVID-19. Ebola Screen: No symptoms or risks identified at this time. Initial Sepsis Screen: Does the patient meet any 2 criteria? No. Patient's initial sepsis screen is negative. Does the patient have a suspected source of infection? No. Patient's initial sepsis screen is negative. Risk Assessment: Do you want to hurt yourself or someone else? Patient reports no desire to harm self or others. Onset of symptoms was July 22, 2019. 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 - Social history:: Smoking status: Patient denies any tobacco usage or history of. - Family history:: not pertinent. Screenin:44 Abuse screen: Denies threats or abuse. Nutritional screening: No deficits noted. tw2 Tuberculosis screening: No symptoms or risk factors identified. Fall Risk None identified. Assessment: 18:30 General: Appears in no apparent distress. slender, Behavior is calm, cooperative, tw2 appropriate for age. Pain: Complains of pain in gluteal cleft. Neuro: Level of Consciousness is awake, alert, obeys commands, Oriented to person, place, time, situation. Cardiovascular: Patient's skin is warm and dry. Respiratory: Airway is patent Respiratory effort is even, unlabored, Respiratory pattern is regular, symmetrical. GI: No signs and/or symptoms were reported involving the gastrointestinal system. : No signs and/or symptoms were reported regarding the genitourinary system. EENT: No signs and/or symptoms were reported regarding the EENT system. Derm: Reports increased pain pt reports "abscess that the antibiotics is not helping me and i just need them to look at it and see if it needs to be drained". Musculoskeletal: Range of motion: intact in all extremities. Vital Signs: 17:50 BP 123 / 87; Pulse 69; Resp 18; Temp 97.6; Pulse Ox 100% on R/A; Weight 63.5 kg; Height ph 5 ft. 4 in. (162.56 cm); 19:38 BP 121 / 86; Pulse 66; Resp 16; Temp 98; Pulse Ox 100% on R/A; rv 17:50 Body Mass Index 24.03 (63.50 kg, 162.56 cm) ph ED Course: 17:24 Patient arrived in ED. ag5 17:53 Triage completed. ph 18:10 Bed in low position. Call light in reach. tw2 18:45 Arm band placed on. tw2 18:58 Michelle Meyers, RN is Primary Nurse. tw2 19:02 Report given to Hector CASTILLO and Kaleb CASTILLO. sv 19:09 Alex Malik MD is Attending Physician. saumya 19:25 Edilberto Murray MD is Referral Physician. saumya 19:38 No provider procedures requiring assistance completed. Patient did not have IV access rv during this emergency room visit. Administered Medications: No medications were administered Outcome: 19:26 Discharge ordered by . saumya 19:38 Discharged to home ambulatory. rv 19:38 Condition: good 19:38 Discharge instructions given to patient, Instructed on discharge instructions, follow up and referral plans. medication usage, Demonstrated understanding of instructions, follow-up care, medications, Prescriptions given X 2. 19:39 Patient left the ED. rv Signatures: Yani Allen, RN RN Alex Quiñones MD MD cha Hall, Patricia, RN RN ph Wise, ANNA Martinez RN tw2 Kaleb Rodas RN RN Reymundo Matthew ag5
[2019-07-22 19:43] VITALS: O2SAT 100
[2019-07-22 19:45] VITALS: BP 121/86; TEMP 98
== END 2019-07-22 19:39 | disposition home or self-care (01) ==
LOC: ER 17:18
DX: L02.31 Cutaneous abscess of buttock (principal)
CPT/HCPCS: 99282

== ENCOUNTER 2020-05-21 12:58 | Emergency (ER) | payer SELFPAY ==
--- OUTSIDE RECORDS SUMMARY | 2020-05-21 13:00 | XMS REPORT | Continuity of Care Document ---
:1975 Author Organization [facility] t Address [address] [place] [address] Care Team Providers Name Role Phone Unavailable Unavailable Unavailable Problems This patient has no known problems. Allergies, Adverse Reactions, Alerts This patient has no known allergies or adverse reactions. Medications This patient has no known medications. Procedures This patient has no known procedures. Results Test Description Test Time Test Comments Results Result Sourc e Comments SCR MAMM 2017-12-25 SCR MAMM BILATERAL BILATERAL CAD 15:48:19 CAD DIGITALBILATERAL DIGITAL FIRST EVER DIGITAL SCREENING MAMMOGRAM WITH CAD: 12/19/2017CLINICAL: Asymptomatic. Current mammographic images were evaluated by either a [employer] M-Vu or a [employer] ImageChecker CAD (computer aided detection system). No [...] prominent lymph nodes.Esme Chiang M.D. el/:12/25/2017 15:48:19 Fruit Loader Machine Operator: Jesusita Giron MM, The [place] [employer] Mammographyletter sent: Additional Imaging Mammogram BI-RADS: 0 Indeterminate
[2020-05-21 14:55] LABS: Absolute Lymphocytes (CBC) 1.7 K/uL (0.7-4.9); Basophils % 0.4 % (0-1.3); Hematocrit 31.5 % (36.0-45.0); Lymphocytes % 24.8 % (15.3-44.8); MPV 7.7 fL (7.6-11.3); RBC Red Blood Cell Count 3.71 M/uL (3.86-4.86)
[2020-05-21 15:03] LABS: Potassium 3.6 mmol/L (3.5-5.1)
[2020-05-21 15:08] LABS: Urine Blood 1+ (Negative); Urine Glucose Negative (Negative); Urine Protein Trace (Negative); Urine Specific Gravity 1.025 (1.005-1.030); Urine pH 5.5 (5.0-7.0)
[2020-05-21 15:21] LABS: Urine Specific Gravity/Preg 1.025 (1.005-1.030)
[2020-05-21 15:23] LABS: Urine Amorphous Sediment 1+ /HPF (NONE SEEN); Urine Bacteria 20-50 /HPF (<20)
--- NOTE | 2020-05-21 15:47 | EDPHYS ---
Physician Documentation [facility] Name: Sobia Ang Age: 45 yrs Sex: Female : 1975 Arrival Date: 05/21/2020 Time: 12:59 Bed 24 Private MD: ED Physician Florin Wheeler HPI: 05/21 14:16 This 45 yrs old Female presents to ER via Ambulatory with complaints of jr8 Itching, Numbness Of Hand, Back Pain. 14:16 Onset: The symptoms/episode began/occurred last night. 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 She also has c/o bilateral flank pain and burning with urination. 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 . 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 - Social history:: Smoking status: Patient denies any tobacco usage or history of. ROS: 14:19 Cardiovascular: Negative for chest pain, palpitations, and edema, Respiratory: Negative jr8 for shortness of breath, cough, wheezing, and pleuritic chest pain, Abdomen/GI: Negative for abdominal pain, nausea, vomiting, diarrhea, and constipation, Neuro: Negative for headache, weakness, numbness, tingling, and seizure. 14:19 Back: Positive for flank pain, bilaterally. 14:19 : Positive for burning with urination. 14:19 MS/extremity: Positive for paresthesias, tingling, of the right hand, left hand, right leg and left leg. 14:22 All other systems are negative. jr8 Exam: 14:22 Chest/axilla: Normal chest wall appearance and motion. Nontender with no deformity. jr8 No lesions are appreciated. Cardiovascular: Regular rate and rhythm with a normal S1 and S2. No gallops, murmurs, or rubs. Normal PMI, no JVD. No pulse deficits. Respiratory: Lungs have equal breath sounds bilaterally, clear to auscultation and percussion. No rales, rhonchi or wheezes noted. No increased work of breathing, no retractions or nasal flaring. Abdomen/GI: Soft, non-tender, with normal bowel sounds. No distension or tympany. No guarding or rebound. No evidence of tenderness throughout. MS/ Extremity: Pulses equal, no cyanosis. Neurovascular intact. Full, normal range of motion. 14:22 Back: CVA tenderness, is noted bilaterally. 14:22 Skin: Appearance: Xerosis in color. Vital Signs: 13:03 BP 114 / 84; Pulse 70; Resp 16 S; Temp 97.9(TE); Pulse Ox 100% on R/A; Weight 63.5 kg ca1 (R); Height 5 ft. 0 in. (152.40 cm) (R); 13:03 Body Mass Index 27.34 (63.50 kg, 152.40 cm) ca1 MDM: 14:17 Patient medically screened. jr8 15:45 Data reviewed: vital signs, nurses notes, lab test result(s), and as a result, I will jr8 discharge patient. Data interpreted: Pulse oximetry: on room air is 100 %. Interpretation: normal. Counseling: I had a detailed discussion with the patient and/or guardian regarding: the historical points, exam findings, and any diagnostic results supporting the discharge/admit diagnosis, lab results, the need for outpatient follow up, a family practitioner, to return to the emergency department if symptoms worsen or persist or if there are any questions or concerns that arise at home. 15:46 ED course: Pt educated on UTI presence and ABx use. She was advised on what to look for jr8 in worsening symptoms and to return to ED. . 05/21 14:23 Order name: CBC with Diff; Complete Time: 15:02 jr8 05/21 14:23 Order name: Basic Metabolic Panel; Complete Time: 15:04 jr8 05/21 14:23 Order name: Urine Microscopic Only; Complete Time: 15:23 jr8 05/21 15:08 Order name: Urine Dipstick-Ancillary; Complete Time: 15:10 EDNC 05/21 15:13 Order name: Urine --Ancillary (enter results); Complete Time: 15:22 eb 05/21 15:23 Order name: Urine Culture EDMS 05/21 14:23 Order name: Urine Test (obtain specimen); Complete Time: 15:16 jr8 05/21 14:23 Order name: Urine Dipstick-Ancillary (obtain specimen); Complete Time: 15:15 jr8 Administered Medications: No medications were administered Disposition: 05/21/20 15:46 Discharged to Home. Impression: Urinary tract infection, site not specified, Paresthesia of skin. - Condition is Stable. - Discharge Instructions: Paresthesia, Urinary Tract Infection, Adult. - Prescriptions for Macrobid 100 mg Oral Capsule - take 1 capsule by ORAL route every 12 hours for 7 days; 14 capsule. - Work release form, Medication Reconciliation Form, Thank You Letter, Antibiotic Education, Prescription Opioid Use form. - Follow up: Private Physician; When: 5 - 6 days; Reason: Recheck today's complaints, Continuance of care, Re-evaluation by your physician. - Problem is new. - Symptoms have improved. Addendum: 05/23/2020 18:34 Co-signature as Attending Physician, Florin Wheeler MD. m a2 Signatures: Dispatcher [employer] [facility] Zamzam Clarke RN RN iw Donaldo Wang PA PA jr8 Florin Wheeler MD MD ma2 Tracey Adam RN RN ca1 Corrections: (The following items were deleted from the chart) 05/21 16:22 15:46 05/21/2020 15:46 Discharged to Home. Impression: Urinary tract infection, site iw not specified; Paresthesia of skin. Condition is Stable. Forms are Medication Reconciliation Form, Thank You Letter, Antibiotic Education, Prescription Opioid Use. Follow up: Private Physician; When: 5 - 6 days; Reason: Recheck today's complaints, Continuance of care, Re-evaluation by your physician. Problem is new. Symptoms have improved. jr8
--- NOTE | 2020-05-21 15:47 | ER ---
Nurse's Notes [facility] Name: Sobia Ang Age: 45 yrs Sex: Female : 1975 Arrival Date: 05/21/2020 Time: 12:59 Bed 24 Private MD: Diagnosis: Urinary tract infection, site not specified;Paresthesia of skin Presentation: 05/21 13:03 Chief complaint: Patient states: Am itching all over, tip of my fingers on both hands ca1 are numb, my mid back is hurting since last night. Coronavirus screen: Client denies travel out of the [place] in the last 14 days. At this time, the client does not indicate any symptoms associated with coronavirus-19. Ebola Screen: Patient negative for fever greater than or equal to 101.5 degrees Fahrenheit, and additional compatible Ebola Virus Disease symptoms Patient denies exposure to infectious person. Patient denies travel to an Ebola-affected area in the 21 days before illness onset. No symptoms or risks identified at this time. Initial Sepsis Screen: Does the patient meet any 2 criteria? No. Patient's initial sepsis screen is negative. Does the patient have a suspected source of infection? No. Patient's initial sepsis screen is negative. Risk Assessment: Do you want to hurt yourself or someone else? Patient reports no desire to harm self or others. Onset of symptoms was May 21, 2020. 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 - Social history:: Smoking status: Patient denies any tobacco usage or history of. Vital Signs: 13:03 BP 114 / 84; Pulse 70; Resp 16 S; Temp 97.9(TE); Pulse Ox 100% on R/A; Weight 63.5 kg ca1 (R); Height 5 ft. 0 in. (152.40 cm) (R); 13:03 Body Mass Index 27.34 (63.50 kg, 152.40 cm) ca1 ED Course: 12:59 Patient arrived in ED. as 13:05 Triage completed. ca1 13:05 Arm band placed on right wrist. ca1 14:05 Donaldo Wang PA is PHCP. jr8 14:05 Florin Wheeler MD is Attending Physician. jr8 14:11 Zamzam Clarke, RN is Primary Nurse. iw Administered Medications: No medications were administered Outcome: 15:46 Discharge ordered by . jr8 16:22 Patient left the ED. iw Addendum: 05/24/2020 10:35 Addendum: Culture Results: Positive urine culture. No further action required. Bacteria i w sensitive to prescribed antibiotic. Signatures: Marylou Celeste as Zamzam Clarke, RN RN iw Donaldo Wang PA PA jr8 Tracey Adam RN RN ca1
== END 2020-05-21 16:22 | disposition home or self-care (01) ==
LOC: ER 12:58
DX: N39.0 Urinary tract infection, site not specified (principal); R20.2 Paresthesia of skin; Z88.6 Allergy status to analgesic agent
CPT/HCPCS: 36415; 80048; 81003; 81015; 81025; 85025; 87077; 87086; 87088; 87186; 99281

== ENCOUNTER 2020-06-07 17:40 | Emergency (ER) | payer SELFPAY ==
--- OUTSIDE RECORDS SUMMARY | 2020-06-07 17:42 | XMS REPORT | Continuity of Care Document ---
:1975 Author Organization [facility] t Address [address] [place] [address] Care Team Providers Name Role Phone Unavailable [...] mammographic images were evaluated by either a [employer] M-Vu or a [employer] ImageChecker CAD (computer aided detection system). No [...] prominent lymph nodes.Esme Chiang M.D. el/:12/25/2017 15:48:19 Design Intern: Jesusita Giron MM, [employer] [place] [employer] Mammographyletter sent: Additional Imaging Mammogram BI-RADS: 0 Indeterminate
--- NOTE | 2020-06-07 21:30 | EDPHYS ---
Physician Documentation [facility] Name: Sobia Ang Age: 45 yrs Sex: Female : 1975 Arrival Date: 06/07/2020 Time: 17:42 Bed 22 Private MD: ED Physician Alex Malik HPI: 06/07 21:21 This 45 yrs old Female presents to ER via Ambulatory with complaints of saumya Itching all Over. 21:21 itching , hx of dairy aire syndrome. Onset: The symptoms/episode began/occurred 2 saumya day(s) ago. Severity of symptoms: At their worst the symptoms were mild in the emergency department the symptoms are unchanged. The patient has experienced similar episodes in the past, a few times. Historical: - Allergies: 17:58 Aspirin; ll1 - PMHx: 17:58 Skin Condition; ll1 - PSHx: 17:58 Ear Tubes; ll1 - Immunization history:: Flu vaccine is not up to date. - Social history:: Smoking status: Patient denies any tobacco usage or history of. - Family history:: not pertinent. ROS: 21:21 Constitutional: Negative for fever, chills, and weight loss, Eyes: Negative for injury, saumya pain, redness, and discharge, ENT: Negative for injury, pain, and discharge, Neck: Negative for injury, pain, and swelling, Cardiovascular: Negative for chest pain, palpitations, and edema, Respiratory: Negative for shortness of breath, cough, wheezing, and pleuritic chest pain, Abdomen/GI: Negative for abdominal pain, nausea, vomiting, diarrhea, and constipation, Back: Negative for injury and pain, : Negative for injury, bleeding, discharge, and swelling, MS/Extremity: Negative for injury and deformity, Neuro: Negative for headache, weakness, numbness, tingling, and seizure, Psych: Negative for depression, anxiety, suicide ideation, homicidal ideation, and hallucinations, Allergy/Immunology: Negative for hives, rash, and allergies, Endocrine: Negative for neck swelling, polydipsia, polyuria, polyphagia, and marked weight changes, Hematologic/Lymphatic: Negative for swollen nodes, abnormal bleeding, and unusual bruising. 21:21 Skin: Positive for rash, diffusely. Exam: 21:21 Constitutional: This is a well developed, well nourished patient who is awake, alert, saumya and in no acute distress. Head/Face: Normocephalic, atraumatic. Eyes: Pupils equal round and reactive to light, extra-ocular motions intact. Lids and lashes normal. Conjunctiva and sclera are non-icteric and not injected. Cornea within normal limits. Periorbital areas with no swelling, redness, or edema. ENT: Nares patent. No nasal discharge, no septal abnormalities noted. Tympanic membranes are normal and external auditory canals are clear. Oropharynx with no redness, swelling, or masses, exudates, or evidence of obstruction, uvula midline. Mucous membranes moist. Neck: Trachea midline, no thyromegaly or masses palpated, and no cervical lymphadenopathy. Supple, full range of motion without nuchal rigidity, or vertebral point tenderness. No Meningismus. Chest/axilla: Normal chest wall appearance and motion. Nontender with no deformity. No lesions are appreciated. Cardiovascular: Regular rate and rhythm with a normal S1 and S2. No gallops, murmurs, or rubs. Normal PMI, no JVD. No pulse deficits. Respiratory: Lungs have equal breath sounds bilaterally, clear to auscultation and percussion. No rales, rhonchi or wheezes noted. No increased work of breathing, no retractions or nasal flaring. Abdomen/GI: Soft, non-tender, with normal bowel sounds. No distension or tympany. No guarding or rebound. No evidence of tenderness throughout. Back: No spinal tenderness. No costovertebral tenderness. Full range of motion. Skin: Warm, dry with normal turgor. Normal color with no rashes, no lesions, and no evidence of cellulitis. MS/ Extremity: Pulses equal, no cyanosis. Neurovascular intact. Full, normal range of motion. Neuro: Awake and alert, GCS 15, oriented to person, place, time, and situation. Cranial nerves II-XII grossly intact. Motor strength 5/5 in all extremities. Sensory grossly intact. Cerebellar exam normal. Normal gait. Psych: Awake, alert, with orientation to person, place and time. Behavior, mood, and affect are within normal limits. Vital Signs: 17:54 BP 127 / 76; Pulse 76; Resp 17; Temp 98.9; Pulse Ox 100% ; Weight 58.97 kg; Height 5 ll1 ft. 0 in. (152.40 cm); Pain 8/10; 21:48 BP 130 / 88; Pulse 70; Resp 16; Pulse Ox 100% ; Pain 0/10; sf 17:54 Body Mass Index 25.39 (58.97 kg, 152.40 cm) ll1 MDM: 21:12 Patient medically screened. [facility] 21:27 Data reviewed: vital signs, nurses notes. Data interpreted: monitoring and evaluation advisor: not saumya applicable for this patient encounter. rate is 76 beats/min, rhythm is regular, Pulse oximetry: on room air is 100 %. Test interpretation: by ED physician or midlevel provider:. Counseling: I had a detailed discussion with the patient and/or guardian regarding: the historical points, exam findings, and any diagnostic results supporting the discharge/admit diagnosis, lab results, the need for outpatient follow up, for definitive care, a scaling machine operator, a family practitioner. Administered Medications: 21:42 Drug: Atarax (hydrOXYzine) 50 mg Route: PO; sf 21:48 Follow up: Response: Medication administered at discharge. sf 21:42 Drug: Pepcid (famotidine) 40 mg Route: PO; sf 21:47 Follow up: Response: Medication administered at discharge. sf 21:42 Drug: predniSONE 60 mg Route: PO; sf 21:47 Follow up: Response: Medication administered at discharge. sf Disposition: 06/07/20 21:29 Discharged to Home. Impression: Dermatitis, unspecified. - Condition is Stable. - Discharge Instructions: Rash, Rash, [id number]. - Prescriptions for Hydroxyzine HCl 25 mg Oral Tablet - take 1 tablet by ORAL route every 6 hours As needed; 30 tablet. Pepcid 20 mg Oral Tablet - take 1 tablet by ORAL route every 12 hours for 10 days; 20 tablet. Prednisone 20 mg Oral Tablet - take 2 tablet by ORAL route once daily for 5 days; 10 tablet. - Medication Reconciliation Form, Thank You Letter, Antibiotic Education, Prescription Opioid Use, Work release form form. - Follow up: Private Physician; When: 2 - 3 days; Reason: Recheck today's complaints, Continuance of care, Re-evaluation by your physician. - Problem is new. - Symptoms have improved. Signatures: Alex Malik MD MD cha Lewis, Lynsay, RN RN 1 Abdirahman Stallings RN RN sf Corrections: (The following items were deleted from the chart) 21:56 21:29 06/07/2020 21:29 Discharged to Home. Impression: Dermatitis, unspecified. sf Condition is Stable. Forms are Medication Reconciliation Form, Thank You Letter, Antibiotic Education, Prescription Opioid Use. Follow up: Private Physician; When: 2 - 3 days; Reason: Recheck today's complaints, Continuance of care, Re-evaluation by your physician. Problem is new. Symptoms have improved. saumya
--- NOTE | 2020-06-07 21:30 | ER ---
Nurse's Notes [facility] Name: Sobia Ang Age: 45 yrs Sex: Female : 1975 Arrival Date: 06/07/2020 Time: 17:42 Bed 22 Private MD: Diagnosis: Dermatitis, unspecified Presentation: 06/07 17:54 Chief complaint: Patient states: Itching all over since noon. Just finished her ll1 antibiotic for kidney infection yesterday. No new foods. Fingers feel bumpy in between, mouth feels dry. Diarrhea for 2 days. Coronavirus screen: Client denies travel out of the [place] in the last 14 days. At this time, the client does not indicate any symptoms associated with coronavirus-19. Ebola Screen: Patient denies travel to an Ebola-affected area in the 21 days before illness onset. Initial Sepsis Screen: Does the patient meet any 2 criteria? No. Patient's initial sepsis screen is negative. Initial Sepsis Screen: Does the patient have a suspected source of infection? No. Patient's initial sepsis screen is negative. Risk Assessment: Do you want to hurt yourself or someone else? Patient reports no desire to harm self or others. Onset of symptoms was June 07, 2020. 17:54 Method Of Arrival: Ambulatory ll1 17:54 Acuity: FRANCES 3 ll1 Historical: - Allergies: 17:58 Aspirin; ll1 - PMHx: 17:58 Skin Condition; ll1 - PSHx: 17:58 Ear Tubes; ll1 - Immunization history:: Flu vaccine is not up to date. - Social history:: Smoking status: Patient denies any tobacco usage or history of. - Family history:: not pertinent. Screenin:48 Abuse screen: Denies threats or abuse. Denies injuries from another. Nutritional sf screening: No deficits noted. Tuberculosis screening: No symptoms or risk factors identified. Fall Risk None identified. Total Abad Fall Scale indicates No Risk (0-24 pts). Assessment: 21:48 General: Appears in no apparent distress. comfortable, Behavior is calm, cooperative. sf Pain: Denies pain. Neuro: No deficits noted. Cardiovascular: No deficits noted. Respiratory: No deficits noted. GI: No deficits noted. No signs and/or symptoms were reported involving the gastrointestinal system. : No deficits noted. No signs and/or symptoms were reported regarding the genitourinary system. EENT: No deficits noted. No signs and/or symptoms were reported regarding the EENT system. Derm: Reports itching. Musculoskeletal: No deficits noted. No signs and/or symptoms reported regarding the musculoskeletal system. Vital Signs: 17:54 BP 127 / 76; Pulse 76; Resp 17; Temp 98.9; Pulse Ox 100% ; Weight 58.97 kg; Height 5 ll1 ft. 0 in. (152.40 cm); Pain 8/10; 21:48 BP 130 / 88; Pulse 70; Resp 16; Pulse Ox 100% ; Pain 0/10; sf 17:54 Body Mass Index 25.39 (58.97 kg, 152.40 cm) ll1 ED Course: 17:42 Patient arrived in ED. ds1 17:57 Triage completed. ll1 17:58 Arm band placed on. ll1 21:12 Alex Malik MD is Attending Physician. saumya 21:35 Abdirahman Stallings, ANNA is Primary Nurse. sf 21:48 Patient has correct armband on for positive identification. sf 21:48 No provider procedures requiring assistance completed. Patient did not have IV access sf during this emergency room visit. Administered Medications: 21:42 Drug: Atarax (hydrOXYzine) 50 mg Route: PO; sf 21:48 Follow up: Response: Medication administered at discharge. sf 21:42 Drug: Pepcid (famotidine) 40 mg Route: PO; sf 21:47 Follow up: Response: Medication administered at discharge. sf 21:42 Drug: predniSONE 60 mg Route: PO; sf 21:47 Follow up: Response: Medication administered at discharge. sf Outcome: 21:29 Discharge ordered by . saumya 21:48 Discharged to home ambulatory. sf 21:48 Condition: stable 21:48 Discharge instructions given to patient, Instructed on discharge instructions, follow up and referral plans. medication usage, Demonstrated understanding of instructions, follow-up care, medications, Prescriptions given X 3. 21:56 Patient left the ED. sf Signatures: Alex Malik MD MD cha Sanford, Demi ds1 Brandon Johnston RN RN ll1 Abdirahman Stallings, ANNA RN sf Corrections: (The following items were deleted from the chart) 17:59 17:54 Chief complaint: Patient states: Itching all over since noon. Just finished her ll1 antibiotic for kidney infection yesterday. No new foods. Fingers feel bumpy in between, mouth feels dry. ll1
[2020-06-07] MEDS ORDERED: hydrOXYzine HCL 25 MG TAB ONE (21:56)
[2020-06-07] MEDS ORDERED: FAMOTIDINE 20 MG TAB ONE (21:56)
[2020-06-07] MEDS ORDERED: predniSONE 20 MG TAB ONE (21:56)
[2020-06-07 22:52] VITALS: TEMP 98.9; O2SAT 100
[2020-06-07 22:53] VITALS: BP 130/88
== END 2020-06-07 21:56 | disposition home or self-care (01) ==
LOC: ER 17:40
DX: L30.9 Dermatitis, unspecified (principal); Z88.6 Allergy status to analgesic agent
CPT/HCPCS: 99283; J7512

== ENCOUNTER 2020-09-15 19:24 | Emergency (ER) | payer SELFPAY ==
--- OUTSIDE RECORDS SUMMARY | 2020-09-15 19:26 | XMS REPORT | Continuity of Care Document ---
:1975 Author Organization [facility] t Address [address] [place] [address] [place] [id number] Care Team Providers Name Role Phone Unavailable Unavailable Unavailable Problems This patient has no known problems. Allergies, Adverse Reactions, Alerts This patient has no known allergies or adverse reactions. Medications This patient has no known medications. Procedures This patient has no known procedures. Results Test Description Test Time Test Comments Results Result [facility] e Comments SCR MAMM 2017-12-25 - SCR MAMM BILATERAL BILATERAL CAD 15:48:19 CAD DIGITALBILATERAL DIGITAL FIRST EVER DIGITAL SCREENING MAMMOGRAM WITH CAD: 12/19/2017CLINICAL: Asymptomatic. Current mammographic images were evaluated by either a RadPad M-Vu or a [employer] Center Software ImageChecker CAD (computer aided detection system). No [...] prominent lymph nodes.Esme Chiang M.D. el/:12/25/2017 15:48:19 Lockstitch Back Maker: Jesusita Giron MM, [facility] Mammographyletter sent: Additional Imaging Mammogram BI-RADS: 0 Indeterminate
--- NOTE | 2020-09-15 22:08 | EDPHYS ---
Physician Documentation [facility] Name: Sobia Ang Age: 45 yrs Sex: Female : 1975 Arrival Date: 09/15/2020 Time: 19:26 Bed 23 Private MD: ED Physician Florin Wheeler HPI: 09/15 23:04 This 45 yrs old Female presents to ER via Ambulatory with complaints of WASP kb STING. 23:04 The patient was bitten on the left middle finger, by a wasp, while in the garden or yard, at home. Onset: The symptoms/episode began/occurred today. Secondary to the bite the patient reports erythema, pain, swelling. Associated signs and symptoms: Pertinent positives: erythema at site, pain at site, swelling at site. Severity of symptoms: At their worst the symptoms were moderate, in the emergency department the symptoms are unchanged. The patient has not experienced similar symptoms in the past. The patient has not recently seen a physician. 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 - Social history:: Smoking status: Patient denies any tobacco usage or history of. ROS: 23:02 Constitutional: Negative for fever, chills, and weight loss. kb 23:02 Skin: Positive for erythema, swelling, of the left middle finger. 23:02 All other systems are negative. 23:02 MS/extremity: Positive for decreased range of motion, of the left middle finger. kb Exam: 23:03 Constitutional: This is a well developed, well nourished patient who is awake, alert, kb and in no acute distress. Head/Face: Normocephalic, atraumatic. ENT: Moist Mucous membranes Respiratory: Respirations even and unlabored. No increased work of breathing, no retractions or nasal flaring. MS/ Extremity: Pulses equal, no cyanosis. Neurovascular intact. Full, normal range of motion. Neuro: Awake and alert, GCS 15, oriented to person, place, time, and situation. Moves all extremities. Normal gait. Psych: Awake, alert, with orientation to person, place and time. Behavior, mood, and affect are within normal limits. 23:03 Skin: wasp sting to distal left middle finger with swelling and erythema to finger. Vital Signs: 20:27 BP 136 / 79; Pulse 64; Resp 20; Temp 97.5(TE); Pulse Ox 100% on R/A; Weight 72.12 kg kg (M); Height 5 ft. 0 in. (152.40 cm) (R); Pain 10/10; 20:27 Body Mass Index 31.05 (72.12 kg, 152.40 cm) kg MDM: 21:47 Patient medically screened. kb 23:03 Data reviewed: vital signs, nurses notes. Data interpreted: Pulse oximetry: on room air kb is 100 %. Interpretation: normal. Counseling: I had a detailed discussion with the patient and/or guardian regarding: the historical points, exam findings, and any diagnostic results supporting the discharge/admit diagnosis, the need for outpatient follow up, a family practitioner, to return to the emergency department if symptoms worsen or persist or if there are any questions or concerns that arise at home. Administered Medications: 22:15 Drug: Pepcid (famotidine) 20 mg Route: PO; ld1 22:15 Follow up: Response: No adverse reaction ld1 22:15 Drug: predniSONE 40 mg Route: PO; ld1 22:16 Follow up: Response: No adverse reaction ld1 22:15 Drug: KeFLEX (cephalexin) 500 mg Route: PO; ld1 22:16 Follow up: Response: No adverse reaction ld1 Disposition Summary: 09/15/20 22:07 Discharge Ordered Location: Home kb Condition: Stable kb Diagnosis - Insect allergy status kb - Insect bite (nonvenomous) of hand kb Followup: kb - With: Emergency Department - When: As needed - Reason: Worsening of condition Followup: kb - With: Private Physician - When: 2 - 3 days - Reason: Recheck today's complaints, Continuance of care, Re-evaluation by your physician Discharge Instructions: - Discharge Summary Sheet kb - Bee, Wasp, or Hornet Sting, Adult kb Forms: - Medication Reconciliation Form kb - Thank You Letter kb - Antibiotic Education kb - Prescription Opioid Use kb - Work release form tt3 Prescriptions: - Cephalexin 500 mg Oral Capsule - take 1 capsule by ORAL route every 8 hours for 10 days; 30 capsule; Refills: 0, kb Product Selection Permitted - Pepcid 20 mg Oral Tablet - take 1 tablet by ORAL route every 12 hours for 5 days; 10 tablet; Refills: 0, kb Product Selection Permitted - Prednisone 20 mg Oral Tablet - take 1 tablet by ORAL route once daily for 5 days; 5 tablet; Refills: 0, kb Product Selection Permitted Signatures: Leeanne Cortes FNP-C JEROME-Jesusita Marin, RN RN ld1 Annie Laguna, RN RN kg
--- NOTE | 2020-09-15 22:08 | ER ---
Nurse's Notes [facility] Name: Sobia Ang Age: 45 yrs Sex: Female : 1975 Arrival Date: 09/15/2020 Time: 19:26 Bed 23 Private MD: Diagnosis: Insect allergy status;Insect bite (nonvenomous) of hand Presentation: 09/15 20:27 Chief complaint: Patient states: Pain on middle finger on left hand. Stung by wasp \T\ kg 1900. Pt states she cant bend her finger. Coronavirus screen: Client denies travel out of the [place] in the last 14 days. At this time, unable to obtain information related to travel outside the [place] At this time, the client does not indicate any symptoms associated with coronavirus-19. Ebola Screen: Patient negative for fever greater than or equal to 101.5 degrees Fahrenheit, and additional compatible Ebola Virus Disease symptoms Patient denies exposure to infectious person. Patient denies travel to an Ebola-affected area in the 21 days before illness onset. Initial Sepsis Screen: Does the patient meet any 2 criteria? No. Patient's initial sepsis screen is negative. Does the patient have a suspected source of infection? No. Patient's initial sepsis screen is negative. Risk Assessment: Do you want to hurt yourself or someone else? Patient reports no desire to harm self or others. Onset of symptoms was September 15, 2020 at 19:00. 20:27 Method Of Arrival: Ambulatory kg 20:27 Acuity: FRANCES 4 kg Triage Assessment: 20:32 General: Appears uncomfortable, Behavior is calm, cooperative, appropriate for age, kg quiet. Pain: Complains of pain in dorsal aspect of distal phalanx of left middle finger and dorsal aspect of middle phalanx of left middle finger Pain radiates to left hand Pain currently is 10 out of 10 on a pain scale. at worst was 10 out of 10 on a pain scale. level that patient reports is acceptable is 5 out of 10 on a pain scale. Quality of pain is described as throbbing. Musculoskeletal: Swelling Slight swelling to the middle finger left hand. 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 - Social history:: Smoking status: Patient denies any tobacco usage or history of. Screenin:35 Abuse screen: Denies threats or abuse. Denies injuries from another. Nutritional kg screening: No deficits noted. Tuberculosis screening: No symptoms or risk factors identified. Fall Risk None identified. Assessment: 22:03 General: Appears in no apparent distress. uncomfortable, Behavior is cooperative, ld1 appropriate for age, anxious. Pain: Complains of pain in left hand Pain does not radiate. Pain currently is 8 out of 10 on a pain scale. Quality of pain is described as throbbing, Pain began 2 hours ago. Is continuous. Neuro: Level of Consciousness is awake, alert, obeys commands, Oriented to person, place, time, situation. Cardiovascular: Capillary refill < 3 seconds Patient's skin is warm and dry. Respiratory: Airway is patent Respiratory effort is even, unlabored, Respiratory pattern is regular, symmetrical. GI: Abdomen is flat, non-distended. : No signs and/or symptoms were reported regarding the genitourinary system. EENT: No signs and/or symptoms were reported regarding the EENT system. Derm: Wasp sting to left hand. Musculoskeletal: No signs and/or symptoms reported regarding the musculoskeletal system. Vital Signs: 20:27 BP 136 / 79; Pulse 64; Resp 20; Temp 97.5(TE); Pulse Ox 100% on R/A; Weight 72.12 kg kg (M); Height 5 ft. 0 in. (152.40 cm) (R); Pain 10/10; 20:27 Body Mass Index 31.05 (72.12 kg, 152.40 cm) kg ED Course: 19:26 Patient arrived in ED. es 20:31 Triage completed. kg 20:32 Arm band placed on right wrist. kg 20:35 Patient has correct armband on for positive identification. kg 21:47 Leeanne Cortes FNP-C [facility] kb 21:47 Florin Wheeler MD is Attending Physician. kb 22:00 Dibbern, Jesusita, RN is Primary Nurse. ld1 22:03 No provider procedures requiring assistance completed. ld1 22:17 Patient did not have IV access during this emergency room visit. ld1 Administered Medications: 22:15 Drug: Pepcid (famotidine) 20 mg Route: PO; ld1 22:15 Follow up: Response: No adverse reaction ld1 22:15 Drug: predniSONE 40 mg Route: PO; ld1 22:16 Follow up: Response: No adverse reaction ld1 22:15 Drug: KeFLEX (cephalexin) 500 mg Route: PO; ld1 22:16 Follow up: Response: No adverse reaction ld1 Outcome: 22:07 Discharge ordered by . christy 22:16 Discharged to home ambulatory. ld1 22:16 Condition: stable 22:16 Discharge instructions given to patient, Instructed on discharge instructions, follow up and referral plans. medication usage, Demonstrated understanding of instructions, follow-up care, medications, Prescriptions given X 3. 22:17 Patient left the ED. ld1 Signatures: Leeanne Cortes, GARAGE WORKER-C GARAGE WORKER-Leticia Sierra Lauren, RN RN ld1 Annie Laguna, RN RN kg
[2020-09-15] MEDS ORDERED: predniSONE 20 MG TAB ONE (22:34)
[2020-09-15] MEDS ORDERED: FAMOTIDINE 20 MG TAB ONE (22:34)
[2020-09-15] MEDS ORDERED: CEPHALEXIN 250 MG CAP ONE (22:34)
[2020-09-16 16:55] VITALS: BP 136/79; TEMP 97.5; O2SAT 100
== END 2020-09-15 22:17 | disposition home or self-care (01) ==
LOC: ER 19:24
DX: T63.461A Toxic effect of venom of wasps, accidental (unintentional), initial encounter (principal); Z91.038 Other insect allergy status; Z88.6 Allergy status to analgesic agent
CPT/HCPCS: 99283; J7512

== ENCOUNTER 2021-02-13 12:30 | Emergency (ER) | payer SELFPAY ==
--- OUTSIDE RECORDS SUMMARY | 2021-02-13 12:32 | XMS REPORT | Continuity of Care Document ---
:1975 Author Organization [facility] t Address [address] [place] [address] [place] [id number] Care Team Providers Name Role Phone Unavailable Unavailable Unavailable Problems This patient has no known problems. Allergies, Adverse Reactions, Alerts This patient has no known allergies or adverse reactions. Medications This patient has no known medications. Procedures This patient has no known procedures. Results Test Description Test Time Test Comments Results Result [facility] e Comments SCR MAMM 2017-12-25 - SCR MAMM BILATERAL BILATERAL CAD 15:48:19 CAD DIGITALBILATERAL DIGITAL FIRST EVER DIGITAL SCREENING MAMMOGRAM WITH CAD: 12/19/2017CLINICAL: Asymptomatic. Current mammographic images were evaluated by either a LIA M-Vu or a [employer]el[employer] ImageChecker CAD (computer aided detection system). No [...] prominent lymph nodes.Esme Chiang M.D. el/:12/25/2017 15:48:19 Data Support Specialist: Jesusita Giron MM, [facility] Mammographyletter sent: Additional Imaging Mammogram BI-RADS: 0 Indeterminate
[2021-02-13 14:41] LABS: SARS-COV-2 RT PCR POSITIVE (NEGATIVE)
--- NOTE | 2021-02-13 15:51 | RAD REPORT ---
EXAM DESCRIPTION: RAD - Chest Single View - 02/13/2021 3:46 pm CLINICAL HISTORY: Congestion;Cough Chest pain. COMPARISON: Chest Single View dated 04/26/2019; Chest Single View dated 02/09/2019; Chest Single View dated 07/19/2017; Chest Pa And Lat (2 Views) dated 09/11/2015 FINDINGS: Portable technique limits examination quality. The lungs are grossly clear. The heart is normal in size. No displaced fractures. IMPRESSION: No acute intrathoracic process suspected.
--- NOTE | 2021-02-13 16:03 | ER ---
Nurse's Notes [facility] Name: Sobia Ang Age: 45 yrs Sex: Female : 1975 Arrival Date: 02/13/2021 Time: 12:32 Bed 12 Private MD: Diagnosis: Coronavirus infection, unspecified Presentation: 02/13 12:55 Chief complaint: Patient states: Mid chest pressure, SOB, sore throat, MANRIQUE since ll1 midnight. Coronavirus screen: Vaccine status: Patient reports being unvaccinated. Client denies travel out of the [place] in the last 14 days. congestion, cough unrelated to allergies, difficulty breathing, fatigue, fever, headache, shortness of breath, Client presents with at least one sign or symptom that may indicate coronavirus-19. Standard/surgical mask placed on the client. Ebola Screen: Patient denies travel to an Ebola-affected area in the 21 days before illness onset. Initial Sepsis Screen: Does the patient meet any 2 criteria? No. Patient's initial sepsis screen is negative. Does the patient have a suspected source of infection? Yes: Productive cough/pneumonia. Risk Assessment: Do you want to hurt yourself or someone else? Patient reports no desire to harm self or others. Onset of symptoms was February 13, 2021. 12:55 Method Of Arrival: Ambulatory ll1 12:55 Acuity: FRANCES 3 ll1 Triage Assessment: 15:31 General: Appears in no apparent distress. uncomfortable, Behavior is cooperative, ll3 anxious. Respiratory: Reports cough that is productive, the patient has moderate shortness of breath. Respiratory: Airway is patent Respiratory effort is even, unlabored, Respiratory pattern is regular, symmetrical, Breath sounds are clear bilaterally. 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 Flu vaccine is not up to date. - Social history:: Smoking status: Patient reports the use of cigarette tobacco products, Reported history of juuling and/or vaping. Patient denies any tobacco usage or history of. Screenin:31 Abuse screen: Denies threats or abuse. Nutritional screening: No deficits noted. ll3 Tuberculosis screening: No symptoms or risk factors identified. 16:25 Fall Risk None identified. ll3 Assessment: 15:25 General: Appears in no apparent distress. uncomfortable, Behavior is cooperative, ll3 anxious. Pain: Complains of pain in chest Pain currently is 5 out of 10 on a pain scale. Quality of pain is described as pressure, Pain began 1 day ago. Is intermittent. Neuro: Level of Consciousness is awake, alert, obeys commands, Oriented to person, place, time, situation, Speech is normal, Facial symmetry appears normal. Cardiovascular: Rhythm is sinus rhythm. Respiratory: Airway is patent Respiratory effort is even, unlabored, Respiratory pattern is regular, symmetrical, Breath sounds are clear. Vital Signs: 12:55 BP 121 / 78; Pulse 80; Resp 18; Temp 98.9; Pulse Ox 100% ; Weight 68.04 kg; Height 5 ll1 ft. 0 in. (152.40 cm); Pain 8/10; 15:30 BP 139 / 79; Pulse 87; Resp 21; Pulse Ox 100% on R/A; Pain 5/10; ll3 12:55 Body Mass Index 29.29 (68.04 kg, 152.40 cm) ll1 ED Course: 12:32 Patient arrived in ED. ds1 12:54 Arm band placed on. ll1 12:56 Triage completed. ll1 14:41 Leeanne Cortes FNP-C is [facility]. kb 14:41 Florin Wheelre MD is Attending Physician. kb 15:06 Angel Stephens, ANNA is Primary Nurse. ll3 15:31 Patient has correct armband on for positive identification. Bed in low position. Call ll3 light in reach. Side rails up X 1. Adult w/ patient. 15:46 Chest Single View XRAY In Process Unspecified. EDMS 16:24 No provider procedures requiring assistance completed. Patient did not have IV access ll3 during this emergency room visit. Administered Medications: No medications were administered Outcome: 16:03 Discharge ordered by . kb 16:24 Discharged to home ambulatory, with family. ll3 16:24 Condition: stable 16:24 Discharge instructions given to patient, Instructed on discharge instructions, follow up and referral plans. Demonstrated understanding of instructions, follow-up care. 16:25 Patient left the ED. ll3 Signatures: Dispatcher [employer] EDMS Leeanne Cortes, TUANC JEROME-Bisi Mayberry ds1 Brandon Johnston, RN RN ll1 Angel Stephens RN RN ll3
--- NOTE | 2021-02-13 16:04 | EDPHYS ---
Physician Documentation [facility] [place], [place] Name: Sobia Ang Age: 45 yrs Sex: Female : 1975 Arrival Date: 02/13/2021 Time: 12:32 Bed 12 Private MD: ED Physician Florin Wheeler HPI: 02/13 16:02 This 45 yrs old Female presents to ER via Ambulatory with complaints of kb Breathing Difficulty, Chest Pain. 16:02 The patient has not experienced similar symptoms in the past. The patient has not kb recently seen a physician. 16:02 The patient or guardian reports cough, that is intermittent, described as mild, flu kb symptoms, low-grade fever, myalgias. Onset: The symptoms/episode began/occurred last night. Severity of symptoms: At their worst the symptoms were moderate, in the emergency department the symptoms are unchanged. Modifying factors: The symptoms are alleviated by nothing, the symptoms are aggravated by nothing. Associated signs and symptoms: Pertinent positives: chest pain, fever, rhinorrhea, sore throat. 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 Flu vaccine is not up to date. - Social history:: Smoking status: Patient reports the use of cigarette tobacco products, Reported history of juuling and/or vaping. Patient denies any tobacco usage or history of. ROS: 16:02 Abdomen/GI: Negative for abdominal pain, nausea, vomiting, diarrhea, and constipation. kb 16:02 Constitutional: Positive for body aches, chills, fatigue, fever, malaise. 16:02 ENT: Positive for rhinorrhea, sinus congestion, sore throat. 16:02 Cardiovascular: Positive for chest pain, Negative for edema, orthopnea, palpitations, paroxysmal nocturnal dyspnea. 16:02 Respiratory: Positive for cough, Negative for dyspnea on exertion, hemoptysis, orthopnea, pleurisy, shortness of breath, sputum production, wheezing. 16:02 All other systems are negative. Exam: 15:58 Constitutional: This is a well developed, well nourished patient who is awake, alert, kb and in no acute distress. Head/Face: Normocephalic, atraumatic. ENT: Moist Mucous membranes Cardiovascular: Regular rate and rhythm with a normal S1 and S2. No gallops, murmurs, or rubs. No pulse deficits. Respiratory: Respirations even and unlabored. No increased work of breathing. Talking in full sentences Skin: Warm, dry with normal turgor. Normal color. MS/ Extremity: Pulses equal, no cyanosis. Neurovascular intact. Full, normal range of motion. Neuro: Awake and alert, GCS 15, oriented to person, place, time, and situation. Moves all extremities. Normal gait. Psych: Awake, alert, with orientation to person, place and time. Behavior, mood, and affect are within normal limits. 15:58 ECG was reviewed by the Attending Physician. Vital Signs: 12:55 BP 121 / 78; Pulse 80; Resp 18; Temp 98.9; Pulse Ox 100% ; Weight 68.04 kg; Height 5 ll1 ft. 0 in. (152.40 cm); Pain 8/10; 15:30 BP 139 / 79; Pulse 87; Resp 21; Pulse Ox 100% on R/A; Pain 5/10; ll3 12:55 Body Mass Index 29.29 (68.04 kg, 152.40 cm) ll1 MDM: 14:41 Patient medically screened. kb 15:59 Data reviewed: vital signs, nurses notes. Data interpreted: Pulse oximetry: on room air kb is 100 %. Interpretation: normal. Counseling: I had a detailed discussion with the patient and/or guardian regarding: the historical points, exam findings, and any diagnostic results supporting the discharge/admit diagnosis, lab results, radiology results, the need for outpatient follow up, a family practitioner, to return to the emergency department if symptoms worsen or persist or if there are any questions or concerns that arise at home. 02/13 12:57 Order name: Flu ll1 02/13 12:57 Order name: Strep ll1 02/13 12:58 Order name: Group A Streptococcus Rapid Sc; Complete Time: 14:42 EDMS 02/13 12:57 Order name: Droplet/Contact Precautions; Complete Time: 12:57 ll1 02/13 12:57 Order name: Labs collected and sent; Complete Time: 12:57 ll1 1226 13:51 Order name: COVID-19/FLU A+B; Complete Time: 14:42 EDMS 02/13 14:14 Order name: Throat Culture EDMS 02/13 15:07 Order name: EKG; Complete Time: 15:07 kb 02/13 15:07 Order name: EKG - Nurse/Tech; Complete Time: 15:25 kb 02/13 15:07 Order name: Chest Single View XRAY; Complete Time: 15:58 kb EC:58 Rate is 71 beats/min. Rhythm is regular. QRS [place] is Normal. CT interval is normal at kb 156 msec. QRS interval is normal at 70 msec. QT interval is normal at 370 msec. Administered Medications: No medications were administered Disposition Summary: 02/13/21 16:03 Discharge Ordered Location: Home kb Condition: Stable kb Diagnosis - Coronavirus infection, unspecified kb Followup: kb - With: Emergency Department - When: As needed - Reason: Worsening of condition Followup: kb - With: Private Physician - When: 2 - 3 days - Reason: Recheck today's complaints, Continuance of care, Re-evaluation by your physician Discharge Instructions: - Discharge Summary Sheet kb - Viral Respiratory Infection, Axgi-Ms-Tcpt kb - COVID-19 kb Forms: - Medication Reconciliation Form kb - Thank You Letter kb - Antibiotic Education kb - Prescription Opioid Use kb - Work release form ll1 Signatures: Dispatcher [employer] EDNV Leeanne Cortes, JEROME-Amalia CANO-Brandon Zamarripa RN RN ll1 Corrections: (The following items were deleted from the chart) 13:51 12:58 Influenza Screen (A ordered. EDNV EDMS 13:51 12:58 CORONAVIRUS ordered. EDNV EDMS
[2021-02-13 16:29] VITALS: TEMP 98.9; O2SAT 100
[2021-02-13 16:30] VITALS: BP 139/79
== END 2021-02-13 16:25 | disposition home or self-care (01) ==
LOC: ER 12:30
DX: U07.1 COVID-19 (principal); Z72.0 Tobacco use; Z88.6 Allergy status to analgesic agent
CPT/HCPCS: 0240U; 71045; 87070; 87081; 93005; 99284

== ENCOUNTER 2021-04-08 20:34 | Emergency (ER) | payer SELFPAY ==
--- OUTSIDE RECORDS SUMMARY | 2021-04-08 20:37 | XMS REPORT | Continuity of Care Document ---
:1975 Author Organization [facility] t Address [address] [place] [address] Care Team Providers Name Role Phone Unavailable Unavailable Unavailable Problems This patient has no known problems. Allergies, Adverse Reactions, Alerts This patient has no known allergies or adverse reactions. Medications This patient has no known medications. Procedures This patient has no known procedures. Results Test Description Test Time Test Comments Results Result [facility] e Comments SCR MAMM 2017-12-25 - SCR MAMM BILATERAL BILATERAL CAD 15:48:19 CAD DIGITALBILATERAL DIGITAL FIRST EVER DIGITAL SCREENING MAMMOGRAM WITH CAD: 12/19/2017CLINICAL: Asymptomatic. Current mammographic images were evaluated by either a [employer] M-Vu or a [employer] ImageChecker CAD (computer aided detection system). No [...] prominent lymph nodes.Esme Chiang M.D. el/:12/25/2017 15:48:19 Street Light Inspector: Jesusita Giron MM, [facility] [employer] Mammography[facility] sent: Additional Imaging Mammogram BI-RADS: 0 Indeterminate
[2021-04-08] MEDS ORDERED: HYDROCODONE/APAP 7.5/325 MG TAB ONE (21:05)
[2021-04-08] MEDS ORDERED: SMZ./TMP. 800/160 MG TABLET ONE (21:06)
[2021-04-08] MEDS ORDERED: LIDOCAINE 1% MPF 5 ML VIAL ONE (21:31)
--- NOTE | 2021-04-08 21:48 | ER ---
Nurse's Notes [facility] [place], [place] Name: Sobia Ang Age: 46 yrs Sex: Female : 1975 Arrival Date: 04/08/2021 Time: 20:37 Bed 12 Private MD: Diagnosis: Cutaneous abscess of chest wall-beneath left breast Presentation: 04/08 20:52 Chief complaint: Patient states: left breast abscess started 2 days ago and now is very sf1 painful and is causing numbness in the hand. Coronavirus screen: Vaccine status: Patient reports being unvaccinated. Client denies travel out of the [place] in the last 14 days. Ebola Screen: Patient negative for fever greater than or equal to 101.5 degrees Fahrenheit, and additional compatible Ebola Virus Disease symptoms Patient denies exposure to infectious person. Patient denies travel to an Ebola-affected area in the 21 days before illness onset. Risk Assessment: Do you want to hurt yourself or someone else? Patient reports no desire to harm self or others. Onset of symptoms was April 06, 2021. 20:52 Method Of Arrival: Ambulatory 1 20:52 Acuity: FRANCES 4 sf1 Triage Assessment: 20:53 General: Appears uncomfortable, Behavior is cooperative. Pain: Complains of pain in sf1 left breast Pain currently is 10 out of 10 on a pain scale. Historical: - Allergies: 20:53 Aspirin; sf1 - PMHx: 20:53 Bipolar disorder; Schizophrenia; Skin Condition; sf1 - PSHx: 20:53 Ligation of fallopian tube; tubes in Ears; sf1 - Immunization history:: Client reports having NOT received the Covid vaccine. Flu vaccine is not up to date. - Social history:: Smoking status: Patient denies any tobacco usage or history of. Patient/guardian denies using alcohol, street drugs. Vital Signs: 21:01 BP 108 / 74; Pulse 75; Resp 18; Temp 98.3(O); Pulse Ox 100% ; Weight 68.04 kg; Height 5 sf1 ft. 0 in. (152.40 cm); Pain 10/10; 21:01 Body Mass Index 29.29 (68.04 kg, 152.40 cm) 1 ED Course: 20:37 Patient arrived in ED. 2 20:51 Fillers, Kamilla, RN is Primary Nurse. sf1 20:51 Leeanne Cortes F[facility]-C [facility] kb 20:51 Cassius Osborne MD is Attending Physician. kb 20:53 Triage completed. sf1 20:53 Arm band placed on right wrist. Patient placed. sf1 21:40 US Extrmty Nonvasular Limited In Process Unspecified. EDMS Administered Medications: 21:07 Drug: [place] (HYDROcodone-acetaminophen) (7.5 mg-325 mg) 1 tabs Route: PO; sf1 21:07 Drug: Bactrim (trimethoprim-sulfamethoxazole) (160 mg-800 mg (DS) 1 tablet Route: PO; sf1 21:46 Drug: Lidocaine (1 %) 1 vials Volume: 5 ml; Route: Infiltration; sf1 Outcome: 21:48 Discharge ordered by . kb 22:01 Patient left the ED. sf1 Signatures: Dispatcher [employer] EDMS Leeanne Cortes FNP-C FNP-Lucia Pate [facility] Kamilla Ahn RN RN sf1
--- NOTE | 2021-04-08 21:48 | EDPHYS ---
Physician Documentation [facility] Name: Sobia Ang Age: 46 yrs Sex: Female : 1975 Arrival Date: 04/08/2021 Time: 20:37 Bed 12 Private MD: ED Physician Cassius Osborne HPI: 04/08 21:03 This 46 yrs old Female presents to ER via Ambulatory with complaints of Breast kb Lump, DRY MOUTH, Numbness Of Hand. 21:06 The patient has not recently seen a physician. kb 21:06 The patient presents with an abscess of the left breast. Description: erythematous, kb swollen. Onset: The symptoms/episode began/occurred 2 day(s) ago. Possible cause(s): unknown. Associated signs and symptoms: Pertinent positives: erythema, swelling, Pertinent negatives: discharge, drainage, foreign body sensation, fever, headache, nausea, shortness of breath, vomiting. Modifying factors: the symptoms are alleviated by nothing, the symptoms are aggravated by pressure, touching. Severity of symptoms: At their worst the symptoms were moderate, in the emergency department the symptoms are unchanged. The patient has experienced similar episodes in the past, several times. Pt reports abscess under left breast that started 2 days ago. Historical: - Allergies: 20:53 Aspirin; sf1 - PMHx: 20:53 Bipolar disorder; Schizophrenia; Skin Condition; sf1 - PSHx: 20:53 Ligation of fallopian tube; tubes in Ears; sf1 - Immunization history:: Client reports having NOT received the Covid vaccine. Flu vaccine is not up to date. - Social history:: Smoking status: Patient denies any tobacco usage or history of. Patient/guardian denies using alcohol, street drugs. ROS: 21:02 Constitutional: Negative for fever, chills, and weight loss. kb 21:02 Skin: Positive for abscess, of the left breast. 21:02 All other systems are negative. Exam: 21:02 Constitutional: This is a well developed, well nourished patient who is awake, alert, kb and in no acute distress. Head/Face: Normocephalic, atraumatic. ENT: Moist Mucous membranes Respiratory: Respirations even and unlabored. No increased work of breathing. Talking in full sentences MS/ Extremity: Pulses equal, no cyanosis. Neurovascular intact. Full, normal range of motion. Neuro: Awake and alert, GCS 15, oriented to person, place, time, and situation. Moves all extremities. Normal gait. Psych: Awake, alert, with orientation to person, place and time. Behavior, mood, and affect are within normal limits. 21:02 Skin: abscess, that is small, that is moderate sized, of the left breast, with induration. Vital Signs: 21:01 BP 108 / 74; Pulse 75; Resp 18; Temp 98.3(O); Pulse Ox 100% ; Weight 68.04 kg; Height 5 sf1 ft. 0 in. (152.40 cm); Pain 10/10; 21:01 Body Mass Index 29.29 (68.04 kg, 152.40 cm) sf1 Procedures: 21:47 I \T\ D: Incision and drainage was performed for an abscess of the left left breast kb Prepped with Betadine, Anesthetized with 2 ml's 1% Lidocaine. Incised with #11 blade. Drained moderate amount purulent fluid. Packed with iodoform gauze, Dressing: sterile 4x4 gauze, the patient tolerated the procedure well. MDM: 20:52 Patient medically screened. kb 21:03 Data reviewed: vital signs, nurses notes. Data interpreted: Pulse oximetry: on room air kb is 100 %. Interpretation: normal. 21:47 Counseling: I had a detailed discussion with the patient and/or guardian regarding: the kb historical points, exam findings, and any diagnostic results supporting the discharge/admit diagnosis, the need for outpatient follow up, a general surgeon, to return to the emergency department if symptoms worsen or persist or if there are any questions or concerns that arise at home. 04/08 21:01 [facility]; Complete Time: 22:38 kb 04/08 21:35 Order name: I\T\D Setup; Complete Time: 21:36 kb Administered Medications: 21:07 Drug: [place] (HYDROcodone-acetaminophen) (7.5 mg-325 mg) 1 tabs Route: PO; sf1 21:07 Drug: Bactrim (trimethoprim-sulfamethoxazole) (160 mg-800 mg (DS) 1 tablet Route: PO; sf1 21:46 Drug: Lidocaine (1 %) 1 vials Volume: 5 ml; Route: Infiltration; sf1 Disposition: 04/09 00:12 Co-signature as Attending Physician, Cassius Osborne MD I agree with the assessment and kdr plan of care. Disposition Summary: 04/08/21 21:48 Discharge Ordered Location: Home kb Condition: Stable kb Diagnosis - Cutaneous abscess of chest wall - beneath left breast kb Followup: kb - With: Emergency Department - When: As needed - Reason: Worsening of condition Followup: kb - With: Private Physician - When: 2 - 3 days - Reason: Recheck today's complaints, Continuance of care, Re-evaluation by your physician Discharge Instructions: - Discharge Summary Sheet kb - Skin Abscess, [place] kb Forms: - Medication Reconciliation Form kb - Thank You Letter kb - Antibiotic Education kb - Prescription Opioid Use kb - Work release form sf1 Prescriptions: - Bactrim DS 800-160 mg Oral Tablet - take 1 tablet by ORAL route every 12 hours for 10 days; 20 tablet; Refills: 0, kb Product Selection Permitted Signatures: Dispatcher [employer]Host EDMS Leeanne Cortes, QUALITY CONTROL TESTER-C QUALITY CONTROL TESTER-Cassius Willis MD MD kdr Kamilla Ahn RN RN sf1
--- NOTE | 2021-04-08 21:59 | RAD REPORT ---
EXAM DESCRIPTION: US - Extremity Nonvascular Limited - 04/08/2021 9:40 pm CLINICAL HISTORY: Left breast pain and swelling COMPARISON: None FINDINGS: A 2.5 x 1.4 heterogeneous fluid collection contains increased blood flow in the periphery consistent with an abscess. It lies within the lower outer left breast. A 2.5 x 0.4 centimeter additional fluid collection with increased peripheral flow is present within t he subcutaneous tissues inner lower left breast. IMPRESSION: 2.5 x 1.4 centimeter abscess outer lower left breast 2.5 x 0.4 centimeter abscess within the subcutaneous tissues inner lower left breast
[2021-04-08 22:14] VITALS: BP 108/74; TEMP 98.3; O2SAT 100
== END 2021-04-08 22:01 | disposition home or self-care (01) ==
LOC: ER 20:34
PROC: 0H95XZZ Drainage of Chest Skin, External Approach (ICD-10-PCS; principal; 2021-04-08)
DX: L02.213 Cutaneous abscess of chest wall (principal); F20.9 Schizophrenia, unspecified; Z88.6 Allergy status to analgesic agent
CPT/HCPCS: 76882; 99283

== ENCOUNTER 2021-07-14 12:18 | Emergency (ER) | payer SELFPAY ==
--- OUTSIDE RECORDS SUMMARY | 2021-07-14 12:21 | XMS REPORT | Continuity of Care Document ---
:1975 Author Organization [facility] t Address [address] [place] [address] Care Team Providers Name Role Phone Unavailable Unavailable Unavailable Problems This patient has no known problems. Allergies, Adverse Reactions, Alerts This patient has no known allergies or adverse reactions. Medications This patient has no known medications. Procedures This patient has no known procedures. Results Test Description Test Time Test Comments Results Result [facility] e Comments SCR MAMM 2017-12-25 - SCR MAMM BILATERAL BILATERAL CAD 15:48:19 CAD DIGITALBILATERAL DIGITAL FIRST EVER DIGITAL SCREENING MAMMOGRAM WITH CAD: 12/19/2017CLINICAL: Asymptomatic. Current mammographic images were evaluated by either a [employer] M-Vu or a [employer] ImageChecker CAD (computer aided detection system). No [...] prominent lymph nodes.Esme Chiang M.D. el/:12/25/2017 15:48:19 Shellfish Shucker: Jesusita Giron MM, [employer] Mammographyletter sent: Additional Imaging Mammogram BI-RADS: 0 Indeterminate
[2021-07-14 13:48] LABS: Urine Blood Trace-intact (Negative); Urine Glucose Negative (Negative); Urine Protein Negative (Negative); Urine Specific Gravity >=1.030 (1.005-1.030); Urine pH 5.5 (5.0-7.0)
[2021-07-14 14:19] LABS: Absolute Lymphocytes (CBC) 1.9 K/uL (0.7-4.9); Hematocrit 31.1 % (36.0-45.0); Lymphocytes % 28.7 % (15.3-44.8); MPV 7.4 fL (7.6-11.3); RBC Red Blood Cell Count 3.95 M/uL (3.86-4.86)
--- NOTE | 2021-07-14 14:27 | RAD REPORT ---
EXAM DESCRIPTION: CT - Stone Protocol - 07/14/2021 2:08 pm CLINICAL HISTORY: Abdominal pain. Flank pain COMPARISON: 2017 TECHNIQUE: Computed axial tomography of the abdomen pelvis was obtained without oral or IV contrast. Lack of IV and oral contrast limits evaluation of solid organs, bowel, and vessels. Coronal reformat yumi images were obtained and reviewed. All CT scans are performed using dose optimization technique as appropriate and may include automated exposure control or mA/KV adjustment according to patient size. FINDINGS: A renal calculus is not seen. An ureteral calculus is not noted. A bladder calculus is not present. The liver, spleen, pancreas and adrenals appear grossly normal There is no evidence of diverticulitis. The appendix appears normal No adnexal mass Small bilateral inguinal lymph nodes without significant change likely benign IMPRESSION: Negative for a genitourinary calculus
[2021-07-14 14:35] LABS: Albumin 3.4 g/dL (3.4-5.0); Bilirubin Total 0.4 mg/dL (0.2-1.0); Potassium 3.6 mmol/L (3.5-5.1); Protein, Total 7.6 g/dL (6.4-8.2)
[2021-07-14] MEDS ORDERED: FAMOTIDINE 20 MG/2 ML VIAL IV ONE (15:06)
[2021-07-14] MEDS ORDERED: DIPHENHYDRAMINE 50 MG/ML VIAL ONE (15:06)
--- NOTE | 2021-07-14 16:33 | ER ---
Nurse's Notes [facility] Name: Sobia Ang Age: 46 yrs Sex: Female : 1975 Arrival Date: 07/14/2021 Time: 12:21 Bed 20 Private MD: Diagnosis: Dysuria;Rash and other nonspecific skin eruption Presentation: 07/14 12:44 Chief complaint: Patient states: yesterday both of her legs began to feel itchy and ap3 achy. Patient also reports that when she ambulates she can hear a "cracking" sound coming from both of her legs. Patient believes she might be working too much on her feet, causing her leg pain but is uncertain as to why they itch. Patient also reports intermittent feeling of numbness in both of her legs, as well as a present rash. Patient also complains of being unable to control her bladder, and reports having urinary accidents on herself multiple times in the last 24 hours. Coronavirus screen: At this time, the client does not indicate any symptoms associated with coronavirus-19. Ebola Screen: No symptoms or risks identified at this time. Initial Sepsis Screen: Does the patient meet any 2 criteria? No. Patient's initial sepsis screen is negative. Does the patient have a suspected source of infection? No. Patient's initial sepsis screen is negative. Risk Assessment: Do you want to hurt yourself or someone else? Patient reports no desire to harm self or others. Onset of symptoms was July 13, 2021. 12:44 Method Of Arrival: Ambulatory ap3 12:44 Acuity: FRANCES 3 ap3 Triage Assessment: 12:47 General: Appears in no apparent distress. Behavior is calm, cooperative. Pain: ap3 Complains of pain in right leg and left leg Also complains of itchy, numbness, aching. Neuro: Level of Consciousness is awake, alert, obeys commands, Oriented to person, place, time, situation, Appropriate for age Gait is steady, Speech is normal. Cardiovascular: Patient's skin is warm and dry. Respiratory: Airway is patent Respiratory effort is even, unlabored. Derm: Rash noted that is on right arm, left arm, right leg and left leg. Musculoskeletal: Range of motion: intact in all extremities. ADMITTANCE ATTENDANT: 12:48 LMP 07/10/2021 ap3 Historical: - Allergies: 12:46 Aspirin; ap3 - PMHx: 12:46 Bipolar disorder; Schizophrenia; Skin Condition; ap3 - PSHx: 12:46 Ligation of fallopian tube; tubes in Ears; ap3 - Immunization history:: Client reports having NOT received the Covid vaccine. - Social history:: Smoking status: Patient denies any tobacco usage or history of. Screenin:48 Abuse screen: Denies threats or abuse. Nutritional screening: No deficits noted. ap3 Tuberculosis screening: No symptoms or risk factors identified. 13:49 Fall Risk No fall in past 12 months (0 pts). Secondary diagnosis (15 points) impaired ap3 mobility, No IV (0 pts). Ambulatory Aid- None/Bed Rest/Nurse Assist (0 pts). Gait- Normal/Bed Rest/Wheelchair (0 pts) Mental Status- Oriented to own ability (0 pts). Total Abad Fall Scale indicates Low Risk Score (25-44 pts). Fall prevention measures have been instituted. Side Rails Up X 2 Placed close to Nursing Station Frequent Obs/Assesments occuring Family Present and informed to notify staff if they need to leave bedside As available Patient and Family Educated on Fall Prevention Program and strategies. Assessment: 13:40 General: patient provided nurse with urine sample. . ap3 13:45 Reassessment: No changes from previously documented assessment. Patient and/or family ll1 updated on plan of care and expected duration. Pain level reassessed. Patient is alert, oriented x 3, equal unlabored respirations, skin warm/dry/pink. 14:45 Reassessment: No changes from previously documented assessment. Patient and/or family ll1 updated on plan of care and expected duration. Pain level reassessed. Patient is alert, oriented x 3, equal unlabored respirations, skin warm/dry/pink. Vital Signs: 12:44 BP 131 / 61; Pulse 58; Resp 17; Temp 97.8; Pulse Ox 100% on R/A; Weight 68.04 kg; ap3 Height 5 ft. 0 in. (152.40 cm); 16:47 BP 144 / 55; Pulse 54; Resp 16; Pulse Ox 100% ; Pain 0/10; ll1 12:44 Body Mass Index 29.29 (68.04 kg, 152.40 cm) ap3 ED Course: 12:21 Patient arrived in ED. mr 12:46 Triage completed. ap3 12:48 Arm band placed on right wrist. ap3 12:49 Her[facility]th Ryan PA [facility] 12:49 Alex Malik MD is Attending Physician. [facility] 13:42 Brandon Johnston, RN is Primary Nurse. ll1 13:42 Patient placed in an exam room, on a stretcher. ll1 13:49 Patient has correct armband on for positive identification. Bed in low position. Call ap3 light in reach. Adult w/ patient. Pulse ox on. NIBP on. Door closed. Noise minimized. 14:03 Inserted saline lock: 20 gauge in right antecubital area, using aseptic technique. Blood collected. 14:03 Lipase Sent. 14:03 CMP Sent. 14:03 CBC with Diff Sent. 14:10 CT Stone Protocol In Process Unspecified. EDMS 16:48 No provider procedures requiring assistance completed. IV discontinued, intact, ll1 bleeding controlled, No redness/swelling at site. Pressure dressing applied. Administered Medications: 15:20 Drug: diphenhydrAMINE 25 mg Route: IVP; Site: right antecubital; ll1 16:48 Follow up: Response: No adverse reaction ll1 15:21 Drug: Pepcid (famotidine) 20 mg Route: IVP; Site: right antecubital; ll1 16:48 Follow up: Response: No adverse reaction ll1 Medication: 12:48 VIS not applicable for this client. ap3 Outcome: 16:33 Discharge ordered by . [facility] 16:48 Discharged to home ambulatory. ll1 16:48 Condition: stable 16:48 Discharge instructions given to patient, family, Instructed on discharge instructions, follow up and referral plans. medication usage, Demonstrated understanding of instructions, follow-up care, medications, Prescriptions given X 2. 16:49 Patient left the ED. ll1 Signatures: Dispatcher [employer] EDMS Herberth Ryan PA PA Talita Shelley catalinoRima RN RN ap3 Brandon Johnston, ANNA RN ll1 Sharon Celeste
--- NOTE | 2021-07-14 16:33 | EDPHYS ---
Physician Documentation [facility] Name: Sobia Ang Age: 46 yrs Sex: Female : 1975 Arrival Date: 07/14/2021 Time: 12:21 Bed 20 Private MD: Alex Cornejo HPI: 07/14 13:43 This 46 yrs old Female presents to ER via Ambulatory with complaints of jmm Urinary Problem, Back Pain, Itching. 13:43 The patient presents with urinary symptoms. Onset: The symptoms/episode began/occurred jmm gradually. Modifying factors: The symptoms are alleviated by nothing, the symptoms are aggravated by nothing. Associated signs and symptoms: Pertinent positives: dysuria. Patient also complains of a bilateral rash to the lower extremity bilaterally. 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 - Social history:: Smoking status: Patient denies any tobacco usage or history of. ROS: 13:43 Constitutional: Negative for fever, chills, and weight loss, Cardiovascular: Negative jmm for chest pain, palpitations, and edema, Respiratory: Negative for shortness of breath, cough, wheezing, and pleuritic chest pain. 13:43 : Positive for urinary symptoms. 13:43 Skin: Positive for rash. 13:43 All other systems are negative. Exam: 13:43 Constitutional: This is a well developed, well nourished patient who is awake, alert, jmm and in no acute distress. Head/Face: atraumatic. Eyes: EOMI, no conjunctival erythema appreciated ENT: Moist Mucus Membranes Neck: Trachea midline, Supple Chest/axilla: Normal chest wall appearance and motion. Cardiovascular: Regular rate and rhythm. No edema appreciated Respiratory: Normal respirations, no respiratory distress appreciated Abdomen/GI: Non distended, soft Back: Normal ROM 13:43 Skin: Scaling rash noted to the extensor surfaces of the legs bilaterally. 13:43 Neuro: Orientation: is normal, Mentation: is normal, Memory: is normal. 13:43 Psych: Behavior/mood is pleasant, cooperative. Vital Signs: 12:44 BP 131 / 61; Pulse 58; Resp 17; Temp 97.8; Pulse Ox 100% on R/A; Weight 68.04 kg; ap3 Height 5 ft. 0 in. (152.40 cm); 16:47 BP 144 / 55; Pulse 54; Resp 16; Pulse Ox 100% ; Pain 0/10; ll1 12:44 Body Mass Index 29.29 (68.04 kg, 152.40 cm) ap3 MDM: 13:43 Patient medically screened. [facility] 16:32 Data reviewed: vital signs, nurses notes. Counseling: I had a detailed discussion with [facility] the patient and/or guardian regarding: the historical points, exam findings, and any diagnostic results supporting the discharge/admit diagnosis, lab results, radiology results, the need for outpatient follow up, to return to the emergency department if symptoms worsen or persist or if there are any questions or concerns that arise at home. ED course: Patient states feeling much better. Patient is alert nontoxic in the ED. I do not suspect sepsis, pyelonephritis. Patient advised follow-up PCP and otherwise given strict return precautions. Patient is agrees plan of care peer. 07/14 13:48 Order name: Urine Dipstick-Ancillary; Complete Time: 13:49 [facility] 07/14 13:50 Order name: CBC with Diff; Complete Time: 14:21 [facility] 07/14 13:50 Order name: CMP; Complete Time: 14:42 [facility] 07/14 13:50 Order name: Lipase; Complete Time: 14:42 [facility] 07/14 13:51 Order name: CT Stone Protocol; Complete Time: 14:42 [facility] 07/14 13:50 Order name: IV Saline Lock; Complete Time: 13:53 [facility] 07/14 13:50 Order name: Labs collected and sent; Complete Time: 13:53 [facility] Administered Medications: 15:20 Drug: diphenhydrAMINE 25 mg Route: IVP; Site: right antecubital; ll1 16:48 Follow up: Response: No adverse reaction ll1 15:21 Drug: Pepcid (famotidine) 20 mg Route: IVP; Site: right antecubital; ll1 16:48 Follow up: Response: No adverse reaction ll1 Disposition Summary: 05/26/22 16:33 Discharge Ordered Location: Home jmm Condition: Stable jmm Diagnosis - Dysuria jmm - Rash and other nonspecific skin eruption jmm Followup: jmm - With: Private Physician - When: 2 - 3 days - Reason: Recheck today's complaints, Continuance of care, Re-evaluation by your physician Discharge Instructions: - Discharge Summary Sheet jmm - Dysuria jmm - Rash, Adult jmm Forms: - Work release form jmm - Medication Reconciliation Form jmm - Thank You Letter m - Antibiotic Education jmm - Prescription Opioid Use jm Prescriptions: - Cephalexin 500 mg Oral Capsule - take 1 capsule by ORAL route every 8 hours for 10 days; 30 capsule; Refills: 0, [facility] Product Selection Permitted - Hydroxyzine HCl 25 mg Oral Tablet - take 1 tablet by ORAL route every 6 hours As needed; 30 tablet; Refills: 0, jmm Product Selection Permitted Signatures: Dispatcher [employer] Herberth Mazariegos PA PA Rima Beltran RN RN ap3 Brandon Johnston RN RN ll1 Corrections: (The following items were deleted from the chart) 13:52 13:51 Urine Test ordered. preeti ap3
[2021-07-14 16:55] VITALS: TEMP 97.8; O2SAT 100
[2021-07-14 16:56] VITALS: BP 144/55
== END 2021-07-14 16:49 | disposition home or self-care (01) ==
LOC: ER 12:18
DX: R30.0 Dysuria (principal); R21 Rash and other nonspecific skin eruption; F20.9 Schizophrenia, unspecified; Z88.6 Allergy status to analgesic agent
CPT/HCPCS: 36415; 74176; 76377; 80053; 81003; 83690; 85025; 96374; 96375; 99284; J1200; J3490

== ENCOUNTER 2021-08-01 09:51 | Emergency (ER) | payer SELFPAY ==
--- OUTSIDE RECORDS SUMMARY | 2021-08-01 09:58 | XMS REPORT | Continuity of Care Document ---
:1975 Author Organization [facility] t Address [address] [place] [address] [place] [id number] Care Team Providers Name Role Phone Unavailable Unavailable Unavailable Problems This patient has no known problems. Allergies, Adverse Reactions, Alerts This patient has no known allergies or adverse reactions. Medications This patient has no known medications. Procedures This patient has no known procedures. Results Test Description Test Time Test Comments Results Result [facility] e Comments SCR MAMM 2017-12-25 - SCR MAMM BILATERAL BILATERAL CAD 15:48:19 CAD DIGITALBILATERAL DIGITAL FIRST EVER DIGITAL SCREENING MAMMOGRAM WITH CAD: 12/19/2017CLINICAL: Asymptomatic. Current mammographic images were evaluated by either a [employer] M-Vu or a [employer] ImageChecker CAD (computer aided detection system). No [...] prominent lymph nodes.Esme Chiang M.D. el/:12/25/2017 15:48:19 Shell Shop Supervisor: Jesusita Giron MM, [facility] [place] [facility] Mammographyletter sent: Additional Imaging Mammogram BI-RADS: 0 Indeterminate
--- NOTE | 2021-08-01 10:38 | RAD REPORT ---
EXAM DESCRIPTION: Helen Single View08/01/2021 10:23 am CLINICAL HISTORY: Chest pain COMPARISON: 2020 FINDINGS: The lungs appear clear of acute infiltrate. The heart is normal size IMPRESSION: No acute abnormalities displayed
[2021-08-01 10:47] LABS: Absolute Lymphocytes (CBC) 1.6 K/uL (0.7-4.9); Hematocrit 32.7 % (36.0-45.0); Lymphocytes % 30.5 % (15.3-44.8); MPV 7.6 fL (7.6-11.3); RBC Red Blood Cell Count 4.12 M/uL (3.86-4.86)
[2021-08-01 10:48] LABS: Protime INR 1.18
[2021-08-01] MEDS ORDERED: ONDANSETRON 4 MG/2 ML VIAL ONE (10:56)
[2021-08-01] MEDS ORDERED: MORPHINE 4 MG/ML SYR ONE (10:56)
[2021-08-01 11:01] LABS: ALT/SGPT 22 U/L (12-78); AST/SGOT 15 U/L (15-37); Albumin 3.6 g/dL (3.4-5.0); Alkaline Phosphatase 66 U/L (45-117); BUN Blood Urea Nitrogen 11 mg/dL (7-18); Bicarbonate 22 mmol/L (21-32); Bilirubin Direct 0.1 mg/dL (0-0.2); Bilirubin Total 0.6 mg/dL (0.2-1.0); Glomerular Filtration Rate 93 ml/min (=/>90); Glucose Level 104 mg/dL (74-106); NT PRO-BNP 122 pg/mL (<125); Potassium 3.9 mmol/L (3.5-5.1); Protein, Total 8.1 g/dL (6.4-8.2); Sodium Level 138 mmol/L (136-145)
[2021-08-01 11:04] LABS: Troponin High Sensitivity < 3.0 pg/mL (<58.9)
--- NOTE | 2021-08-01 13:55 | RAD REPORT ---
EXAM DESCRIPTION: CT - Chest For Pe Angio - 08/01/2021 1:31 pm CLINICAL HISTORY: Chest pain. Chest pain, elevated d-dimer, SOB COMPARISON: No comparisons TECHNIQUE: CT angiogram of the pulmonary arteries was performed with MIP. All CT scans are performed using dose optimization technique as appropriate and may include automated exposure control or mA/KV adjustment according to patient size. FINDINGS: No evidence of pulmonary thromboembolism. No acute aortic finding demonstrated. The lungs are clear. No significant pericardial or pleural fluid. No concerning bony finding. IMPRESSION: No evidence of pulmonary thromboembolism. No acute lung findings.
--- NOTE | 2021-08-01 14:02 | ER ---
Nurse's Notes [facility] Name: Sobia Ang Age: 46 yrs Sex: Female : 1975 Arrival Date: 08/01/2021 Time: 09:54 Bed 3 Private MD: Diagnosis: Chest pain, unspecified Presentation: 08/01 10:00 Chief complaint: Patient states: Chest pain began last night, stated "a little bit" of vg1 SOB, denies NV; states CP radiates to back. Coronavirus screen: Vaccine status: Patient reports being unvaccinated. Client denies travel out of the [place] in the last 14 days. Ebola Screen: Patient denies exposure to infectious person. Patient denies travel to an Ebola-affected area in the 21 days before illness onset. Initial Sepsis Screen: Does the patient meet any 2 criteria? No. Patient's initial sepsis screen is negative. Does the patient have a suspected source of infection? No. Patient's initial sepsis screen is negative. Risk Assessment: Do you want to hurt yourself or someone else? Patient reports no desire to harm self or others. Onset of symptoms was July 31, 2021. 10:00 Method Of Arrival: Ambulatory vg1 10:00 Acuity: FRANCES 2 vg1 Triage Assessment: 10:02 General: Appears uncomfortable, Behavior is anxious, crying. Pain: Complains of pain in vg1 back and chest Pain currently is 10 out of 10 on a pain scale. Cardiovascular: Reports chest pain, shortness of breath, Patient's skin is warm and dry. Respiratory: Airway is patent Respiratory effort is even, unlabored. 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 - Social history:: Smoking status: Patient denies any tobacco usage or history of. Screenin:36 Abuse screen: Denies threats or abuse. Nutritional screening: No deficits noted. jh6 Tuberculosis screening: No symptoms or risk factors identified. Fall Risk IV access (20 points). Assessment: 10:35 General: Appears in no apparent distress. comfortable, Behavior is calm, cooperative. jh6 Pain: Complains of pain in anterior aspect of left upper chest and mid-sternal area Pain does not radiate. Pain began suddenly, 4 hours ago. Is intermittent, Alleviated by medications, Aggravated by increased activity, Also complains of NUMBNESS IN HANDS. Neuro: No deficits noted. Cardiovascular: Reports chest pain, Denies lightheadedness, nausea, palpitations, Capillary refill < 3 seconds Patient's skin is warm and dry. Rhythm is regular. Respiratory: No deficits noted. 11:01 Reassessment: No changes from previously documented assessment. Patient and/or family jg9 updated on plan of care and expected duration. Pain level reassessed. Patient is alert, oriented x 3, equal unlabored respirations, skin warm/dry/pink. 13:04 Reassessment: No changes from previously documented assessment. Patient and/or family jg9 updated on plan of care and expected duration. Pain level reassessed. Patient states feeling better. Vital Signs: 10:00 BP 147 / 103; Pulse 79; Resp 20; Temp 98.3(O); Pulse Ox 98% on R/A; Weight 68.04 kg; vg1 Height 5 ft. 0 in. (152.40 cm); Pain 10/10; 10:35 BP 123 / 58; Pulse 61; Resp 18 S; Pulse Ox 100% on R/A; jg9 10:45 BP 143 / 72; Pulse 67; Resp 16 S; Pulse Ox 99% on R/A; jg9 12:45 BP 135 / 58; Pulse 51; Resp 17; Pulse Ox 100% ; jg9 10:00 Body Mass Index 29.29 (68.04 kg, 152.40 cm) vg1 ED Course: 09:54 Patient arrived in ED. mr 10:00 Prem Pritchett, COLLEEN is PHCP. pm1 10:00 Renan Montiel MD is Attending Physician. pm1 10:02 Triage completed. vg1 10:02 Arm band placed on. vg1 10:23 Anne Blackman, ANNA is Primary Nurse. jg9 10:25 XRAY Chest (1 view) In Process Unspecified. EDMS 10:36 Initial lab(s) drawn, by me, sent to lab. EKG done, by ED staff, reviewed by Renan 6 Dinesh RAMOS. Patient maintains SpO2 saturation greater than 95% on room air. 10:50 Patient has correct armband on for positive identification. Bed in low position. Call j9 light in reach. Side rails up X 1. Client placed on continuous cardiac and pulse oximetry monitoring. NIBP monitoring applied. 10:54 Inserted saline lock: 20 gauge in left antecubital area, using aseptic technique. 6 13:03 No apparent distress. Resting quietly. Awaiting lab results, Awaiting CT Scan. j9 13:[address] jh6 13:32 CT Chest For PE Angio In Process Unspecified. EDIA 13:36 Patient [address] back from [address]. [facility] 13:40 No provider procedures requiring assistance completed. [facility] 13:41 pt taken to OR via wheelchair. report given to anna miller. [facility] 14:30 IV discontinued, intact, bleeding controlled, No redness/swelling at site. Pressure [facility] dressing applied. Administered Medications: 10:53 Drug: morphine 4 mg Route: IVP; Infused Over: 4 mins; Site: left antecubital; [facility] 12:26 Follow up: Response: No adverse reaction; Marked relief of symptoms j9 10:54 Drug: Zofran (Ondansetron) 4 mg Route: IVP; Site: left antecubital; [facility] 12:26 Follow up: Response: No adverse reaction; Marked relief of symptoms jg9 Medication: 11:01 VIS not applicable for this client. j9 Outcome: 13:40 Admitted to [facility] 13:40 Condition: good 13:40 Instructed on the need for admit. 14:02 Discharge ordered by . pm1 14:41 Patient left the ED. [facility] Signatures: Dispatcher [employer] EDIA Floyd Talita PritchettPrem, BEHAVIOR INTERVENTIONIST BEHAVIOR INTERVENTIONIST pm1 Elizabeth Bedoya, RN RN vg1 Anne Arciniega, ANNA CASTILLO jh6 Anne Blackman, ANNA RN jg9
--- NOTE | 2021-08-01 14:03 | EDPHYS ---
Physician Documentation [facility] Name: Sobia Ang Age: 46 yrs Sex: Female : 1975 Arrival Date: 08/01/2021 Time: 09:54 Bed 3 Private MD: ED Physician Renan Montiel HPI: 08/01 10:05 This 46 yrs old Female presents to ER via Ambulatory with complaints of Chest pm1 Pain, Numbness Of Hand. 10:05 The patient or guardian reports chest pain that is located primarily in the anterior pm1 aspect of left upper chest. Onset: last night. The pain radiates to back. Associated signs and symptoms: Pertinent positives: shortness of breath, Pertinent negatives: cough, headache, nausea, vomiting. Duration: The patient or guardian reports a single episode, that is still ongoing. Modifying factors: the symptoms are aggravated by deep breath, palpation of area. Severity of pain: in the emergency department the pain is unchanged. The patient has not experienced similar symptoms in the past. The patient has not recently seen a physician. 10:05 Numbness of hands present to bilateral hands. 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 - Social history:: Smoking status: Patient denies any tobacco usage or history of. ROS: 10:05 Constitutional: Negative for fever, chills, and weight loss, Respiratory: Negative for pm1 shortness of breath, cough, wheezing, and pleuritic chest pain, Abdomen/GI: Negative for abdominal pain, nausea, vomiting, diarrhea, and constipation. 10:05 Back: Negative for injury and pain, MS/Extremity: Negative for injury and deformity, pm1 Skin: Negative for injury, rash, and discoloration. 10:05 Cardiovascular: Positive for chest pain, Negative for edema, palpitations. 10:05 Neuro: Positive for numbness, of the right hand and left hand, Negative for dizziness, headache. 10:05 All other systems are negative. Exam: 10:05 Constitutional: This is a well developed, well nourished patient who is awake, alert, pm1 and in no acute distress. Head/Face: Normocephalic, atraumatic. 10:05 Skin: Warm, dry with normal turgor. Normal color with no rashes, no lesions, and no evidence of cellulitis. MS/ Extremity: Pulses equal, no cyanosis. Neurovascular intact. Full, normal range of motion. 10:05 Eyes: Exam is negative for acute changes, Periorbital structures: no acute changes, Pupils: no acute changes, Extraocular movements: no acute changes. 10:05 ENT: Exam is negative for acute changes, Mouth: no acute changes, Lips: normal, moist, Oral mucosa: normal, pink and intact, moist. 10:05 Chest/axilla: Inspection: normal, Palpation: tenderness, of the anterior aspect of left upper chest, that totally reproduces the patient's complaints. 10:05 Cardiovascular: Exam negative for acute changes, Rate: normal, Rhythm: regular, Pulses: no pulse deficits are appreciated. 10:05 Respiratory: Exam negative for acute changes, the patient does not display signs of respiratory distress, Respirations: normal, Breath sounds: are clear throughout. 10:05 Abdomen/GI: Exam negative for acute changes, Inspection: abdomen appears normal, Palpation: abdomen is soft and non-tender, in all quadrants. 10:05 Back: Exam negative for acute changes. 10:05 Neuro: Exam negative for acute changes, Orientation: is normal, Mentation: is normal, Motor: is normal, moves all fours. Vital Signs: 10:00 BP 147 / 103; Pulse 79; Resp 20; Temp 98.3(O); Pulse Ox 98% on R/A; Weight 68.04 kg; vg1 Height 5 ft. 0 in. (152.40 cm); Pain 10/10; 10:35 BP 123 / 58; Pulse 61; Resp 18 S; Pulse Ox 100% on R/A; jg9 10:45 BP 143 / 72; Pulse 67; Resp 16 S; Pulse Ox 99% on R/A; jg9 12:45 BP 135 / 58; Pulse 51; Resp 17; Pulse Ox 100% ; jg9 10:00 Body Mass Index 29.29 (68.04 kg, 152.40 cm) vg1 MDM: 10:01 Patient medically screened. pm1 14:01 Data reviewed: vital signs. Data interpreted: Pulse oximetry: on room air is 100 %. pm1 Interpretation: normal. 14:01 Counseling: I had a detailed discussion with the patient and/or guardian regarding: the pm1 historical points, exam findings, and any diagnostic results supporting the discharge/admit diagnosis, lab results, radiology results, the need for outpatient follow up, to return to the emergency department if symptoms worsen or persist or if there are any questions or concerns that arise at home. 08/01 10:01 Order name: Basic Metabolic Panel; Complete Time: 11:34 pm08/01 10:01 Order name: CBC with Diff; Complete Time: 11:34 pm08/01 10:01 Order name: LFT's; Complete Time: :34 pm08/01 10:01 Order name: Magnesium; Complete Time: :34 pm08/01 10:01 Order name: NT PRO-BNP; Complete Time: 11:34 pm08/01 10:01 Order name: PT-INR; Complete Time: 11:34 pm08/01 10:01 Order name: Troponin HS; Complete Time: 11:34 pm08/01 10:01 Order name: XRAY Chest (1 view); Complete Time: 10:41 pm08/01 10:01 Order name: EKG; Complete Time: 10: pm08/01 10:01 Order name: Cardiac monitoring; Complete Time: 10:34 pm08/01 12:12 Order name: D-Dimer; Complete Time: 13:08 pm08/01 13:02 Order name: CT Chest For PE Angio; Complete Time: 13:58 pm08/01 10:01 Order name: EKG - Nurse/Tech; Complete Time: 10:34 pm08/01 10:01 Order name: IV Saline Lock; Complete Time: 10:34 pm08/01 10:01 Order name: Labs collected and sent; Complete Time: 10:34 pm08/01 10:01 Order name: O2 Per Protocol; Complete Time: 10:34 pm08/01 10:01 Order name: O2 Sat Monitoring; Complete Time: 10:34 pm Administered Medications: 10:53 Drug: morphine 4 mg Route: IVP; Infused Over: 4 mins; Site: left antecubital; 6 12:26 Follow up: Response: No adverse reaction; Marked relief of symptoms jg9 10:54 Drug: Zofran (Ondansetron) 4 mg Route: IVP; Site: left antecubital; 6 12:26 Follow up: Response: No adverse reaction; Marked relief of symptoms jg9 Disposition: 08/02 14:32 Co-signature as Attending Physician, Renan Montiel MD. rn Disposition Summary: 08/01/21 14:02 Discharge Ordered Location: Home pm1 Problem: new pm1 Symptoms: have improved pm1 Condition: Stable pm1 Diagnosis - Chest pain, unspecified pm1 Followup: pm1 - With: Emergency Department - When: As needed - Reason: Worsening of condition Followup: pm1 - With: Private Physician - When: 2 - 3 days - Reason: Recheck today's complaints, Continuance of care, Re-evaluation by your physician Discharge Instructions: - Discharge Summary Sheet pm1 - Nonspecific Chest Pain, Adult pm1 Forms: - Medication Reconciliation Form pm1 - Work release form ss - Thank You Letter pm1 - Antibiotic Education pm1 - Prescription Opioid Use pm1 Prescriptions: - Cyclobenzaprine 10 mg Oral Tablet - take 1 tablet by ORAL route every 8 hours As needed; 30 tablet; Refills: 0, pm1 Product Selection Permitted - Diclofenac Sodium 75 mg Oral tablet,delayed release (DR/EC) - take 1 tablet by ORAL route 2 times per day As needed; 30 tablet; Refills: 0, pm1 Product Selection Permitted Signatures: Dispatcher [employer] EDRenan Cooper MD MD rn Marinas, Patrick, PIZZA [employer]UT TEAM MEMBER PIZZ[employer] TEAM MEMBER pm1 Elizabeth Bedoya RN RN vg1 Anne Arciniega RN RN jh6 Anne Blackman RN jg9 Corrections: (The following items were deleted from the chart) 10:50 08/01 10:05 Constitutional: Negative for fever, chills, and weight loss, pm1 Cardiovascular: Negative for chest pain, palpitations, and edema, Respiratory: Negative for shortness of breath, cough, wheezing, and pleuritic chest pain, Abdomen/GI: Negative for abdominal pain, nausea, vomiting, diarrhea, and constipation, pm1
[2021-08-01 14:57] VITALS: TEMP 98.3
[2021-08-01 15:02] VITALS: BP 135/58; O2SAT 100
--- NOTE | 2021-08-02 11:08 | EKG ---
Test Date: 2021-08-01 Test Time: 10:32:10 Clerk To Justice: POLO MEASUREMENT RESULTS: Intervals: Rate: 54 MA: 144 QRSD: 70 QT: 446 QTc: 422 Assawoman: P: 64 MA: 144 QRS: 78 T: 42 INTERPRETIVE STATEMENTS: Sinus bradycardia Otherwise normal ECG Compared to ECG 02/13/2021 15:15:13 Sinus rhythm no longer present Electronically Signed On 08-02-21 11:05:06 CDT by Zeb Sales
== END 2021-08-01 14:41 | disposition home or self-care (01) ==
LOC: ER 09:51
DX: R07.9 Chest pain, unspecified (principal); F20.9 Schizophrenia, unspecified; F31.9 Bipolar disorder, unspecified
CPT/HCPCS: 36415; 71045; 71275; 80048; 80076; 83735; 83880; 84484; 85025; 85379; 85610; 93005; 96374; 96375; 99285; J2405; Q9967

== ENCOUNTER 2021-09-11 20:47 | Emergency (ER) | payer SELFPAY ==
--- OUTSIDE RECORDS SUMMARY | 2021-09-11 20:49 | XMS REPORT | Continuity of Care Document ---
:1975 Author Organization [facility] t Address [address] [place] [address] [place] [id number] Care Team Providers Name Role Phone Unavailable Unavailable Unavailable Problems This patient has no known problems. Allergies, Adverse Reactions, Alerts This patient has no known allergies or adverse reactions. Medications This patient has no known medications. Procedures This patient has no known procedures. Results Test Description Test Time Test Comments Results Result [facility] e Comments SCR MAMM 2017-12-25 - SCR MAMM BILATERAL BILATERAL CAD 15:48:19 CAD DIGITALBILATERAL DIGITAL FIRST EVER DIGITAL SCREENING MAMMOGRAM WITH CAD: 12/19/2017CLINICAL: Asymptomatic. Current mammographic images were evaluated by either a [employer] M-Vu or a [employer] ImageChecker CAD (computer aided detection system). No [...] prominent lymph nodes.Esme Chiang M.D. el/:12/25/2017 15:48:19 Financial Institution Vice President: Jesusita Giron MM, The [place] [employer] Mammographyletter sent: Additional Imaging Mammogram BI-RADS: 0 Indeterminate
--- NOTE | 2021-09-11 22:47 | EDPHYS ---
Physician Documentation [facility] Name: Sobia Ang Age: 46 yrs Sex: Female : 1975 Arrival Date: 09/11/2021 Time: 20:52 Bed 1 Private MD: ED Physician Homero Palomo HPI: 09/11 22:47 This 46 yrs old Female presents to ER via Ambulatory with complaints of Cough, ms3 Congestion. 22:47 6-year-old female with past medical history of bipolar disorder, schizophrenia, skin ms3 condition presents for runny nose, cough, sore throat that began yesterday. Patient states her discomfort is 7/10. Patient denies nausea or vomiting. Patient endorses cough. Patient denies alleviating or inciting factors. 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 - Social history:: Smoking status: Reported history of juuling and/or vaping. ROS: 22:47 Eyes: Negative for injury, pain, redness, and discharge, Neck: Negative for injury, ms3 pain, and swelling, Cardiovascular: Negative for chest pain, and palpitations. 22:47 MS/Extremity: Negative for injury and deformity. 22:47 Constitutional: Positive for chills. 22:47 Respiratory: Positive for cough. 22:47 All other systems are negative. Exam: 22:47 Constitutional: This is a well developed, well nourished patient who is awake, alert, ms3 and in no acute distress. Head/Face: Normocephalic, atraumatic. Neck: Trachea midline, no cervical lymphadenopathy. Supple, full range of motion without nuchal rigidity, or vertebral point tenderness. No Meningismus. Chest/axilla: Normal chest wall appearance and motion. Nontender with no deformity. Cardiovascular: Regular rate and rhythm with a normal S1 and S2. No gallops, murmurs, or rubs. Normal PMI, no JVD. No pulse deficits. Respiratory: Lungs have equal breath sounds bilaterally, clear to auscultation and percussion. No rales, rhonchi or wheezes noted. No increased work of breathing, no retractions or nasal flaring. Abdomen/GI: Soft, non-tender, with normal bowel sounds. No distension or tympany. No guarding or rebound. No evidence of tenderness throughout. Skin: Warm, dry with normal turgor. Normal color with no rashes, no lesions, and no evidence of cellulitis. Psych: Awake, alert, with orientation to person, place and time. Behavior, mood, and affect are within normal limits. Vital Signs: 21:21 BP 133 / 71; Pulse 79; Resp 18; Temp 98.4; Pulse Ox 98% ; Weight 68.04 kg; Height 5 ft. vc1 0 in. (152.40 cm); 21:21 Body Mass Index 29.29 (68.04 kg, 152.40 cm) vc1 MDM: 21:46 Patient medically screened. ms3 22:47 Differential Diagnosis: Bronchitis Upper Respiratory Infection Other COVID. Data ms3 reviewed: vital signs, nurses notes, lab test result(s), and as a result, I will discharge patient. Counseling: I had a detailed discussion with the patient and/or guardian regarding: the historical points, exam findings, and any diagnostic results supporting the discharge/admit diagnosis, lab results, the need for outpatient follow up, to return to the emergency department if symptoms worsen or persist or if there are any questions or concerns that arise at home. ED course: On reevaluation patient is alert and oriented x4, in no apparent distress, nontoxic-appearing, speaking full sentences, ambulatory in emergency department. . 09/11 21:21 Order name: SARS-COV-2 RT PCR (Document "Date of Onset" if Symptomatic); Complete Time: lg3 22:46 09/11 21:21 Order name: Flu; Complete Time: 22:46 3 09/11 21:21 Order name: Strep; Complete Time: 22:46 3 09/11 22:00 Order name: Throat Culture EDMS Administered Medications: No medications were administered Disposition Summary: 09/11/21 22:47 Discharge Ordered Location: Home ms3 Condition: Stable ms3 Diagnosis - SARS-associated coronavirus as the cause of diseases classified elsewhere ms3 Followup: ms3 - With: Wade Andrew, - When: 2 - 3 days - Reason: Recheck today's complaints Discharge Instructions: - Discharge Summary Sheet ms3 - COVID-19 ms3 - Things to Know about the COVID-19 Pandemic - [facility] ms3 - 10 Things You Can Do to Manage Your COVID-19 Symptoms at Home - CDC ms3 Forms: - Medication Reconciliation Form ms3 - Thank You Letter ms3 - Antibiotic Education ms3 - Prescription Opioid Use ms3 Prescriptions: - Ibuprofen 600 mg Oral Tablet - take 1 tablet by ORAL route every 6 hours As needed take with food; 30 tablet; ms3 Refills: 0, Product Selection Permitted Signatures: Dispatcher [employer] EDMS Homero Palomo DO DO ms3 Belen Henry RN RN vc1 Corrections: (The following items were deleted from the chart) 09/12 05:24 05:23 This 46 yrs old Female presents to ER via Ambulatory with complaints of ms3 Cough, Congestion. ms3
--- NOTE | 2021-09-11 22:47 | ER ---
Nurse's Notes [facility] Name: Sobia Ang Age: 46 yrs Sex: Female : 1975 Arrival Date: 09/11/2021 Time: 20:52 Bed 1 Private MD: Diagnosis: SARS-associated coronavirus as the cause of diseases classified elsewhere Presentation: 09/11 21:21 Chief complaint: Patient states: "I have a headache and cough and congested.". vc1 Coronavirus screen: chills, congestion, cough unrelated to allergies, headache, Client presents with at least one sign or symptom that may indicate coronavirus-19. Standard/surgical mask placed on the client. Provider contacted for isolation considerations. Ebola Screen: No symptoms or risks identified at this time. Initial Sepsis Screen: Does the patient meet any 2 criteria? No. Patient's initial sepsis screen is negative. Does the patient have a suspected source of infection? No. Patient's initial sepsis screen is negative. Risk Assessment: Do you want to hurt yourself or someone else? Patient reports no desire to harm self or others. Onset of symptoms is unknown. 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 - Social history:: Smoking status: Reported history of juuling and/or vaping. Screenin:24 Abuse screen: Denies threats or abuse. Nutritional screening: No deficits noted. vc1 Tuberculosis screening: No symptoms or risk factors identified. Fall Risk None identified. Assessment: 22:04 General: Appears in no apparent distress. comfortable, Behavior is calm, cooperative. lg3 Pain: Complains of pain in head and throat. Neuro: No deficits noted. Level of Consciousness is awake, alert, obeys commands, Oriented to person, place, time, situation. Cardiovascular: No deficits noted. Denies chest pain, shortness of breath, Capillary refill < 3 seconds Clubbing of nail beds is absent JVD is absent Patient's skin is warm and dry. Respiratory: Reports cough that is productive, persistent Airway is patent Trachea midline Respiratory effort is even, unlabored, Respiratory pattern is regular, symmetrical. GI: No deficits noted. No signs and/or symptoms were reported involving the gastrointestinal system. Abdomen is round non-distended, Abd is soft and non tender X 4 quads. : No deficits noted. No signs and/or symptoms were reported regarding the genitourinary system. EENT: No deficits noted. No signs and/or symptoms were reported regarding the EENT system. Derm: No deficits noted. No signs and/or symptoms reported regarding the dermatologic system. Skin is intact, is healthy with good turgor, Skin is dry, Skin temperature is warm. Musculoskeletal: No deficits noted. No signs and/or symptoms reported regarding the musculoskeletal system. Circulation, motion, and sensation intact. Range of motion: intact in all extremities. 23:36 Reassessment: Patient appears in no apparent distress at this time. No changes from lg3 previously documented assessment. Patient and/or family updated on plan of care and expected duration. Pain level reassessed. Patient is alert, oriented x 3, equal unlabored respirations, skin warm/dry/pink. Vital Signs: 21:21 BP 133 / 71; Pulse 79; Resp 18; Temp 98.4; Pulse Ox 98% ; Weight 68.04 kg; Height 5 ft. vc1 0 in. (152.40 cm); 21:21 Body Mass Index 29.29 (68.04 kg, 152.40 cm) vc1 ED Course: 20:52 Patient arrived in ED. bp1 20:54 Homero Palomo DO is Attending Physician. ms3 21:20 Sejal Burden, RN is Primary Nurse. lg3 21:23 Triage completed. vc1 21:24 Arm band placed on left wrist. vc1 21:38 Strep Sent. mh5 21:38 Flu Sent. mh5 21:38 SARS-COV-2 RT PCR (Document "Date of Onset" if Symptomatic) Sent. mh5 21:38 COVID swab sent to lab. Flu and/or RSV swab sent to lab. Strep swab sent to lab. mh5 22:06 Patient has correct armband on for positive identification. Bed in low position. Call lg3 light in reach. Side rails up X 1. Door closed. Noise minimized. Family accompanied patient. 22:46 Wade Andrew DO is Referral Physician. ms3 23:36 No provider procedures requiring assistance completed. Patient did not have IV access lg3 during this emergency room visit. Administered Medications: No medications were administered Medication: 23:37 VIS not applicable for this client. lg3 Outcome: 22:47 Discharge ordered by MD. ms3 23:36 Discharged to home ambulatory. lg3 23:36 Condition: stable 23:36 Discharge instructions given to patient, Instructed on discharge instructions, follow up and referral plans. medication usage, Demonstrated understanding of instructions, follow-up care, medications, Prescriptions given X 1. 23:37 Patient left the ED. lg3 Signatures: Sobia Celeste [facility] Sejal Burden, RN RN 3 Homero Palomo DO DO ms3 Audelia Almonte [facility] Beeln Henry, RN RN vc1
[2021-09-12 00:27] VITALS: TEMP 98.4
[2021-09-12 00:49] VITALS: BP 132/60; O2SAT 96
== END 2021-09-11 23:37 | disposition home or self-care (01) ==
LOC: ER 20:47
DX: U07.1 COVID-19 (principal); F20.9 Schizophrenia, unspecified; Z88.6 Allergy status to analgesic agent
CPT/HCPCS: 87070; 87081; 87804; 99283; U0003

== ENCOUNTER 2021-09-24 02:34 | Emergency (ER) | payer SELFPAY ==
--- OUTSIDE RECORDS SUMMARY | 2021-09-24 02:37 | XMS REPORT | Continuity of Care Document ---
:1975 Author Organization [facility] t Address [address] [place] [address] [place] [address] Care Team Providers Name Role Phone Unavailable Unavailable Unavailable Problems This patient has no known problems. Allergies, Adverse Reactions, Alerts This patient has no known allergies or adverse reactions. Medications This patient has no known medications. Procedures This patient has no known procedures. Results Test Description Test Time Test Comments Results Result [facility] e Comments SCR MAMM 2017-12-25 - SCR MAMM BILATERAL BILATERAL CAD 15:48:19 CAD DIGITALBILATERAL DIGITAL FIRST EVER DIGITAL SCREENING MAMMOGRAM WITH CAD: 12/19/2017CLINICAL: Asymptomatic. Current mammographic images were evaluated by either a [employer] M-Vu or a [employer] ImageChecker CAD (computer aided detection system). No [...] prominent lymph nodes.Esme Chiang M.D. 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
[2021-09-24 03:36] LABS: Absolute Lymphocytes (CBC) 1.3 K/uL (0.7-4.9); Hematocrit 28.6 % (36.0-45.0); Lymphocytes % 23.8 % (15.3-44.8); MCV 79.8 fL (80-100); MPV 7.3 fL (7.6-11.3); RBC Red Blood Cell Count 3.59 M/uL (3.86-4.86)
[2021-09-24 03:39] LABS: Protime INR 1.06
[2021-09-24] MEDS ORDERED: NA CHLORIDE 0.9% 1,000 ML ONE (03:50)
[2021-09-24] MEDS ORDERED: FLUORESCEIN SODIUM 1 MG/WRAP ONE (03:50)
[2021-09-24] MEDS ORDERED: predniSONE 20 MG TAB ONE (03:50)
[2021-09-24] MEDS ORDERED: DIPHENHYDRAMINE 50 MG/ML VIAL ONE (03:50)
[2021-09-24] MEDS ORDERED: TETRACAINE HCL 0.5% 4ML OPTH ONE (03:50)
[2021-09-24] MEDS ORDERED: FAMOTIDINE 20 MG/2 ML VIAL IV ONE (03:51)
[2021-09-24 03:55] LABS: ALT/SGPT 15 U/L (12-78); AST/SGOT 12 U/L (15-37); Albumin 3.1 g/dL (3.4-5.0); Alkaline Phosphatase 63 U/L (45-117); BUN Blood Urea Nitrogen 12 mg/dL (7-18); Bicarbonate 26 mmol/L (21-32); Bilirubin Total 0.3 mg/dL (0.2-1.0); Glomerular Filtration Rate 108 ml/min (=/>90); Glucose Level 111 mg/dL (74-106); Magnesium 1.9 mg/dL (1.8-2.4); NT PRO-BNP 179 pg/mL (<125); Sodium Level 138 mmol/L (136-145); Troponin High Sensitivity 3.5 pg/mL (<58.9)
[2021-09-24 03:59] LABS: Bilirubin Direct < 0.1 mg/dL (0-0.2)
[2021-09-24 04:21] LABS: Urine Blood 2+ (Negative); Urine Glucose Negative (Negative); Urine Protein Negative (Negative); Urine Specific Gravity >=1.030 (1.005-1.030); Urine pH 5.5 (5.0-7.0)
--- NOTE | 2021-09-24 06:26 | EDPHYS ---
Physician Documentation [facility] Name: Sobia Ang Age: 46 yrs Sex: Female : 1975 Arrival Date: 09/24/2021 Time: 02:36 Bed 13 Private MD: ED Physician Rustam Moreno HPI: 09/24 03:00 This 46 yrs old Female presents to ER via Ambulatory with complaints of mh7 Blurred Vision, Numbness Of Hand, Chest Pain > 30 y/o, Itching. 03:00 States that she tested positive for COVID about 2 weeks ago. mh7 03:00 The patient or guardian reports cough, that is intermittent, described as moderate, mh7 with no sputum. Onset: The symptoms/episode began/occurred 7 day(s) ago. Severity of symptoms: At their worst the symptoms were moderate, 2 day(s) ago, in the emergency department the symptoms have improved, moderately. Modifying factors: The symptoms are alleviated by nothing, the symptoms are aggravated by nothing. Associated signs and symptoms: Pertinent positives: chest pain, with cough, itching all over, blurred vision, eye irritation, numbness/tingling of hands, anxious, Pertinent negatives: diarrhea, ear ache, fever, nausea, rhinorrhea, sore throat, vomiting. 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 - Social history:: Smoking status: Patient/guardian denies using tobacco, Patient/guardian denies using alcohol, street drugs. ROS: 03:00 Constitutional: Negative for fever, chills, and weight loss, ENT: Negative for injury, mh7 pain, and discharge, Neck: Negative for injury, pain, and swelling, Abdomen/GI: Negative for abdominal pain, nausea, vomiting, diarrhea, and constipation, Back: Negative for injury and pain, : Negative for injury, bleeding, discharge, and swelling, MS/Extremity: Negative for injury and deformity, Skin: Negative for injury, rash, and discoloration. 03:00 Endocrine: Negative for neck swelling, polydipsia, polyuria, polyphagia, and marked mh7 weight changes, Hematologic/Lymphatic: Negative for swollen nodes, abnormal bleeding, and unusual bruising. 03:00 Neuro: Negative for altered mental status, dizziness, gait disturbance, headache, hearing loss, loss of consciousness, seizure activity, speech changes, syncope, near syncope, tinnitus, tremor, weakness. 03:00 Psych: Negative for depression, drug dependence, alcohol dependence, auditory hallucinations, visual hallucinations, homicidal ideation, insomnia, suicide gesture, suicidal ideation. Exam: 03:00 Head/Face: Normocephalic, atraumatic. Eyes: Pupils equal round and reactive to light, mh7 extra-ocular motions intact. Lids and lashes normal. Conjunctiva and sclera are non-icteric and not injected. Cornea within normal limits. Periorbital areas with no swelling, redness, or edema. ENT: Nares patent. No nasal discharge, no septal abnormalities noted. Tympanic membranes are normal and external auditory canals are clear. Oropharynx with no redness, swelling, or masses, exudates, or evidence of obstruction, uvula midline. Mucous membranes moist. Neck: Trachea midline, no thyromegaly or masses palpated, and no cervical lymphadenopathy. Supple, full range of motion without nuchal rigidity, or vertebral point tenderness. No Meningismus. Chest/axilla: Normal chest wall appearance and motion. Nontender with no deformity. No lesions are appreciated. Cardiovascular: Regular rate and rhythm with a normal S1 and S2. No gallops, murmurs, or rubs. Normal PMI, no JVD. No pulse deficits. Respiratory: Lungs have equal breath sounds bilaterally, clear to auscultation and percussion. No rales, rhonchi or wheezes noted. No increased work of breathing, no retractions or nasal flaring. Abdomen/GI: Soft, non-tender, with normal bowel sounds. No distension or tympany. No guarding or rebound. No evidence of tenderness throughout. Back: No spinal tenderness. No costovertebral tenderness. Full range of motion. MS/ Extremity: Pulses equal, no cyanosis. Neurovascular intact. Full, normal range of motion. Neuro: Awake and alert, GCS 15, oriented to person, place, time, and situation. Cranial nerves II-XII grossly intact. Motor strength 5/5 in all extremities. Sensory grossly intact. Cerebellar exam normal. Normal gait. 03:00 Constitutional: The patient appears in no acute distress, alert, awake, anxious. 03:00 Psych: Behavior/mood is anxious, Oriented to person, place, time, Patient has no thoughts/intents to harm self or others. Judgement / Insight is normal. Memory is normal. Delusions/hallucinations are not present. 04:30 Eyes: Corneas: abrasion, that is small, on the left, on the right, at 6 o'clock, right mh7 cornea at 8 o'clock position, a fluorescein strip employed to appreciate the findings, Intraocular pressure: right eye = 16mmHg, left eye = 16mmHg. Vital Signs: 02:40 BP 144 / 74; Pulse 60; Resp 14 S; Temp 98.1(O); Pulse Ox 100% on R/A; Weight 68.04 kg lg3 (R); Height 5 ft. 0 in. (152.40 cm) (R); 04:00 BP 145 / 69; Pulse 71; Resp 14; Pulse Ox 100% on R/A; ll3 05:17 BP 134 / 77; Pulse 78; Resp 11; Pulse Ox 97% on R/A; ll3 06:40 BP 136 / 78; Pulse 75; Resp 15; Pulse Ox 98% on R/A; lg3 02:40 Body Mass Index 29.30 (68.04 kg, 152.40 cm) lg3 Visual Acuity: 04:21 Left Eye Visual acuity 20/100, ; Right Eye Visual acuity 20/100, ; Without Lenses; ll3 States glasses RX is old, denies having glasses MDM: 06:20 Differential Diagnosis: Bronchitis Upper Respiratory Infection Asthma Exacerbation mh7 Viral Syndrome Pneumonia Other anxiety, corneal abrasion, conjunctivitis, allergic reaction, pruritus, urticaria. Data reviewed: vital signs, nurses notes, old medical records, lab test result(s), cardiac enzymes, CBC, electrolytes, urinalysis, UPT: negative EKG, radiologic studies, CT scan, plain films. Data interpreted: Pulse oximetry: on room air is 97 %. Interpretation: normal. Counseling: I had a detailed discussion with the patient and/or guardian regarding: the historical points, exam findings, and any diagnostic results supporting the discharge/admit diagnosis, lab results, radiology results, the need for outpatient follow up, to return to the emergency department if symptoms worsen or persist or if there are any questions or concerns that arise at home. Response to treatment: the patient's symptoms have markedly improved after treatment. 06:26 Patient medically screened. [facility] 09/24 03:09 Order name: Basic Metabolic Panel; Complete Time: 04:17 [facility] 09/24 03:09 Order name: CBC with Diff; Complete Time: 03:49 [facility] 09/24 03:09 Order name: LFT's; Complete Time: 04:17 [facility] 09/24 03:09 Order name: Magnesium; Complete Time: 04:17 [facility] 09/24 03:09 Order name: NT PRO-BNP; Complete Time: 04:17 [facility] 09/24 03:09 Order name: PT-INR; Complete Time: 03:49 [facility] 09/24 03:09 Order name: Troponin HS; Complete Time: 04:17 [facility] 09/24 03:09 Order name: XRAY Chest (1 view) [facility] 09/24 03:10 Order name: COVID-19 SARS RT PCR (Document "Date of Onset" if Symptomatic); Complete [facility] Time: 04:42 09/24 03:12 Order name: D-Dimer; Complete Time: 03:49 [facility] 09/24 03:14 Order name: Phosphorus; Complete Time: 04:17 [facility] 09/24 04:19 Order name: CT Chest For PE Angio [facility] 09/24 04:21 Order name: Urine Dipstick-Ancillary; Complete Time: 04:23 EDMS 09/24 03:09 Order name: EKG; Complete Time: 03:10 [facility] 09/24 03:09 Order name: Cardiac monitoring; Complete Time: 03:56 [facility] 09/24 03:09 Order name: EKG - Nurse/Tech; Complete Time: 03:19 [facility] 09/24 03:09 Order name: IV Saline Lock; Complete Time: 03:37 [facility] 09/24 03:09 Order name: Labs collected and sent; Complete Time: 03:37 [facility] 09/24 03:09 Order name: O2 Per Protocol; Complete Time: 03:37 [facility] 09/24 03:09 Order name: O2 Sat Monitoring; Complete Time: 03:37 mh09/24 03:09 Order name: Urine Dipstick-Ancillary (obtain specimen); Complete Time: 04:21 [facility] 09/24 03:09 Order name: Urine Test (obtain specimen); Complete Time: 04:21 7 09/24 03:29 Order name: Eye Tray; Complete Time: 03:47 7 09/24 03:29 Order name: Fluoresene Opth strip; Complete Time: 03:47 7 09/24 03:29 Order name: Visual Acuity; Complete Time: 04:21 mh7 Administered Medications: 03:47 Drug: predniSONE 40 mg Route: PO; ll3 05:30 Follow up: Response: No adverse reaction lg3 03:47 Drug: NS 0.9% 1000 ml Route: IV; Rate: 1000 ml; Site: left antecubital; ll3 06:40 Follow up: Response: No adverse reaction; IV Status: Completed infusion; IV Intake: lg3 1000ml 03:56 Drug: Benadryl (diphenhydrAMINE) 50 mg Route: IVP; Site: left antecubital; ll3 05:30 Follow up: Response: No adverse reaction lg3 03:56 Drug: Pepcid (famotidine) 20 mg Route: IVP; Site: left antecubital; ll3 05:30 Follow up: Response: No adverse reaction lg3 04:45 Drug: Tetracaine Drops 0.5 % 1 drops {Note: Administered by Dr. Tiffanie MD.} Route: ll3 Ophthalmic; Site: both eyes; Disposition Summary: 09/24/21 06:26 Discharge Ordered Location: Home [facility] Problem: an acute exacerbation 7 Symptoms: have improved 7 Condition: Stable 7 Diagnosis - Acute bronchitis, unspecified mh7 - Pruritus, unspecified mh7 - Corneal Abrasions mh7 - Paresthesia of skin mh7 - Chest pain, unspecified mh7 - Anxiety disorder, unspecified mh7 Followup: 7 - With: Private Physician - When: 1 - 2 days - Reason: Worsening of condition, Recheck today's complaints, Continuance of care, Re-evaluation by your physician Followup: 7 - With: Delphine Cisneros MD - When: 48 Hours - Reason: Worsening of condition, Recheck today's complaints Discharge Instructions: - Discharge Summary Sheet mh7 - Paresthesia mh7 - Corneal Abrasion, [id number] [facility] - Acute Bronchitis, Adult, [id number] [facility] - Nonspecific Chest Pain, Adult, [id number] [facility] - Pruritus [facility] - Generalized Anxiety Disorder, Adult [facility] - Form - Excuse from Work, School, or Physical Activity [facility] Forms: - Medication Reconciliation Form [facility] - Thank You Letter [facility] - Antibiotic Education [facility] - Prescription Opioid Use [facility] - Work release form tw5 Prescriptions: - Benadryl 25 mg Oral Capsule - take 1 capsule by ORAL route every 6 hours As needed; 30 tablet; Refills: 0, [facility] Product Selection Permitted - Ciloxan 0.3 % Ophthalmic Drops - instill 2 drops by OPHTHALMIC route every 6 hours for 7 days; 5 milliliter; [facility] Refills: 0, Product Selection Permitted - Pepcid 20 mg Oral Tablet - take 1 tablet by ORAL route every 12 hours for 5 days; 10 tablet; Refills: 0, [facility] Product Selection Permitted - Prednisone 20 mg Oral Tablet - take 2 tablets by ORAL route once daily for 5 days; 10 tablet; Refills: 0, [facility] Product Selection Permitted Signatures: Dispatcher [employer] EDMS Sejal Burden RN RN lg3 Rustam Moreno MD MD [facility] Angel Stephens RN RN ll3 Anni Guadarrama PA PA sb3 Corrections: (The following items were deleted from the chart) 04:00 03:51 The patient or guardian reports cough, that is intermittent, described as [facility] moderate, with no sputum, [facility] 04:00 03:51 Onset: The symptoms/episode began/occurred 7 day(s) ago, [place] [id number] 04:00 03:51 Severity of symptoms: At their worst the symptoms were moderate, 2 day(s) ago, in [facility] the emergency department the symptoms have improved, moderately, [facility] 04:00 03:51 Modifying factors: The symptoms are alleviated by nothing, the symptoms are [facility] aggravated by nothing, [facility] 04:00 03:51 Associated signs and symptoms: Pertinent positives: chest pain, with cough, [facility] itching all over, blurred vision, eye irritation, numbness/tingling of hands, anxious, Pertinent negatives: diarrhea, ear ache, fever, nausea, rhinorrhea, sore throat, vomiting, [facility] 04:00 03:51 States that she tested positive for COVID about 2 weeks ago. mh7 mh7
--- NOTE | 2021-09-24 06:26 | ER ---
Nurse's Notes [facility] Name: Sobia Ang Age: 46 yrs Sex: Female : 1975 Arrival Date: 09/24/2021 Time: 02:36 Bed 13 Private MD: Diagnosis: Acute bronchitis, unspecified;Pruritus, unspecified;Corneal Abrasions;Paresthesia of skin;Chest pain, unspecified;Anxiety disorder, unspecified Presentation: 09/24 02:40 Chief complaint: Patient states: i cant keep my eyes open. if i do they just hurt. i lg3 think its because im working a lot. i had COVID 2 weeks ago and im tired all day. im itching all over. i think im wheezing when i try to breathe and i think its messing with my heart. im weak all over. i couldn't eat anything last night but i can drink liquids. im really anxious. Coronavirus screen: Client denies travel out of the [place] in the last 14 days. Client presents with at least one sign or symptom that may indicate coronavirus-19. Standard/surgical mask placed on the client. Ebola Screen: No symptoms or risks identified at this time. Initial Sepsis Screen: Does the patient meet any 2 criteria? No. Patient's initial sepsis screen is negative. Does the patient have a suspected source of infection? No. Patient's initial sepsis screen is negative. Risk Assessment: Do you want to hurt yourself or someone else? Patient reports no desire to harm self or others. Onset of symptoms is unknown. 02:40 Method Of Arrival: Ambulatory lg3 02:40 Acuity: FRANCES 3 lg3 Triage Assessment: 02:43 General: Appears in no apparent distress. comfortable, Behavior is cooperative, lg3 anxious. Pain: Complains of pain in right eye and left eye. EENT: No deficits noted. No signs and/or symptoms were reported regarding the EENT system. Neuro: No deficits noted. Level of Consciousness is awake, alert, obeys commands, Oriented to person, place, time, situation. Cardiovascular: No deficits noted. Capillary refill < 3 seconds Clubbing of nail beds is absent JVD is absent Patient's skin is warm and dry. Respiratory: No deficits noted. Reports cough that is Airway is patent Trachea midline Respiratory effort is even, unlabored, Respiratory pattern is regular, symmetrical, Breath sounds are clear bilaterally. GI: No deficits noted. Abdomen is flat, non-distended, Reports intolerance of food. : No deficits noted. No signs and/or symptoms were reported regarding the genitourinary system. Derm: Skin is intact, is healthy with good turgor, Skin is dry, Skin temperature is warm. Musculoskeletal: No deficits noted. Circulation, motion, and sensation intact. Range of motion: intact in all extremities. 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 - Social history:: Smoking status: Patient/guardian denies using tobacco, Patient/guardian denies using alcohol, street drugs. Screenin:23 Abuse screen: Denies threats or abuse. Nutritional screening: No deficits noted. ll3 Tuberculosis screening: No symptoms or risk factors identified. Fall Risk No fall in past 12 months (0 pts). No secondary diagnosis (0 pts). IV access (20 points). Ambulatory Aid- None/Bed Rest/Nurse Assist (0 pts). Gait- Normal/Bed Rest/Wheelchair (0 pts) Mental Status- Oriented to own ability (0 pts). Total Abad Fall Scale indicates No Risk (0-24 pts). Assessment: 04:00 Reassessment: No changes from previously documented assessment. Patient and/or family ll3 updated on plan of care and expected duration. Pain level reassessed. Patient is alert, oriented x 3, equal unlabored respirations, skin warm/dry/pink. 05:17 Reassessment: No changes from previously documented assessment. Patient and/or family ll3 updated on plan of care and expected duration. Pain level reassessed. Patient is alert, oriented x 3, equal unlabored respirations, skin warm/dry/pink. 06:22 Reassessment: Patient appears in no apparent distress at this time. No changes from lg3 previously documented assessment. Patient and/or family updated on plan of care and expected duration. Pain level reassessed. Patient is alert, oriented x 3, equal unlabored respirations, skin warm/dry/pink. Patient states feeling better. Patient states symptoms have improved. Vital Signs: 02:40 BP 144 / 74; Pulse 60; Resp 14 S; Temp 98.1(O); Pulse Ox 100% on R/A; Weight 68.04 kg lg3 (R); Height 5 ft. 0 in. (152.40 cm) (R); 04:00 BP 145 / 69; Pulse 71; Resp 14; Pulse Ox 100% on R/A; ll3 05:17 BP 134 / 77; Pulse 78; Resp 11; Pulse Ox 97% on R/A; ll3 06:40 BP 136 / 78; Pulse 75; Resp 15; Pulse Ox 98% on R/A; lg3 02:40 Body Mass Index 29.30 (68.04 kg, 152.40 cm) lg3 Visual Acuity: 04:21 Left Eye Visual acuity 20/100, ; Right Eye Visual acuity 20/100, ; Without Lenses; ll3 States glasses RX is old, denies having glasses ED Course: 02:36 Patient arrived in ED. bp1 02:43 Triage completed. lg3 02:43 Arm band placed on left wrist. lg3 02:53 Rustam Moreno MD is Attending Physician. mh7 03:36 Angel Stephens, ANNA is Primary Nurse. ll3 04:00 XRAY Chest (1 view) In Process Unspecified. EDMS 04:00 Initial lab(s) drawn, by me, sent to lab. EKG done, COVID swab sent to lab. Inserted ll3 saline lock: 22 gauge in left antecubital area, using aseptic technique. Blood collected. 04:23 Patient has correct armband on for positive identification. Bed in low position. Call ll3 light in reach. Side rails up X 1. Adult w/ patient. 04:56 CT Chest For PE Angio In Process Unspecified. EDMS 06:23 Delphine Cisneros MD is Referral Physician. mh7 06:39 No provider procedures requiring assistance completed. IV discontinued, intact, lg3 bleeding controlled, No redness/swelling at site. Pressure dressing applied. Administered Medications: 03:47 Drug: predniSONE 40 mg Route: PO; ll3 05:30 Follow up: Response: No adverse reaction lg3 03:47 Drug: NS 0.9% 1000 ml Route: IV; Rate: 1000 ml; Site: left antecubital; ll3 06:40 Follow up: Response: No adverse reaction; IV Status: Completed infusion; IV Intake: lg3 1000ml 03:56 Drug: Benadryl (diphenhydrAMINE) 50 mg Route: IVP; Site: left antecubital; ll3 05:30 Follow up: Response: No adverse reaction lg3 03:56 Drug: Pepcid (famotidine) 20 mg Route: IVP; Site: left antecubital; ll3 05:30 Follow up: Response: No adverse reaction lg3 04:45 Drug: Tetracaine Drops 0.5 % 1 drops {Note: Administered by Dr. Tiffanie MD.} Route: ll3 Ophthalmic; Site: both eyes; Medication: 06:39 VIS not applicable for this client. lg3 Intake: 06:40 IV: 1000ml; Total: 1000ml. lg3 Outcome: 06:26 Discharge ordered by . [facility] 06:39 Discharged to home ambulatory, with family. lg3 06:39 Condition: stable 06:39 Discharge instructions given to patient, Instructed on discharge instructions, follow up and referral plans. medication usage, Demonstrated understanding of instructions, follow-up care, medications, Prescriptions given X 4. 06:41 Patient left the ED. lg3 Signatures: Dispatcher [employer] EDMS Sejal Burden, RN RN lg3 Audelia Almonte Maurice, MD MD 7 Angel Stephens RN RN 3 Corrections: (The following items were deleted from the chart) 05:36 02:40 BP 144 / 74; Pulse 60bpm; Resp 16bpm; Spontaneous; Pulse Ox 100% RA; Temp 98.1F lg3 Oral; 68.04 kg Reported; Height 5 ft. 0 in. Reported; BMI: 29.2; lg3
[2021-09-24 07:36] VITALS: TEMP 98.1
[2021-09-24 07:44] VITALS: BP 136/78; O2SAT 98
--- NOTE | 2021-09-24 18:56 | RAD REPORT ---
EXAM DESCRIPTION: X-ray single view chest. CLINICAL HISTORY: 46 years Female, CHEST PAIN COMPARISON: CT chest performed on 08/01/2021 TECHNIQUE: Single portable x-ray view of the chest performed on 09/24/2021 at 3:48 AM FINDINGS: The lungs are well expanded and are clear. There is no evidence of a pneumothorax. The cardiac silhouette is normal in size and configuration. The mediastinal contours are normal. No acute osseous abnormality is identified. No acute soft tissue abnormalities are seen. Lines and tubes: None. Free air: None IMPRESSION: No evidence of acute intrathoracic disease. Electronically signed by: Janet Tucker DO 09/24/2021 5:12 AM CDT Due to temporary technical issues with the PACS/Fluency reporting system, reports are being signed by the in house radiologists without review as a courtesy to insure prompt reporting. The interpreting radiologist is fully responsible for the content of the report.
--- NOTE | 2021-09-24 18:59 | RAD REPORT ---
EXAM DESCRIPTION: Chest For Pe Angio RadLex: CT CHEST ANGIOGRAPHY WITH IV CONTRAST CLINICAL HISTORY: Chest pain, cough; [facility] MAIN TECHNIQUE: CT angiogram of the chest using intravenous contrast. MIP reconstructions were performed. All CT scans at this facility use dose modulation, iterative reconstruction, and/or weight based dosi ng when appropriate to reduce radiation dose to as low as reasonably achievable. COMPARISON: None. FINDINGS: PULMONARY ARTERIES: The pulmonary arteries are adequately opacified to the segmental lev el. The subsegmental branches are not well opacified. No intraluminal filling defects are identified to suggest acute PE. MEDIASTINUM: The heart and great vessels appear unremarkable. There is no evidence for pericardial effusion. There is no pathologically enlarged adenopathy. LUNGS: The lungs are clear. No focal consolidation identified. No pleural effusion or pneumothorax. VISUALIZED ABDOMEN: The visualized solid organs of the abdomen reveal no acute process. BONES AND SOFT TISSUES: The soft tissues and osseous structures appear unremarkable. IMPRESSION: 1. No CT evidence of segmental or larger pulmonary embolism. No other acute cardiopu lmonary process identified. Electronically signed by: Herberth Lloyd MD 09/24/2021 5:46 AM CDT Due to temporary technical issues with the PACS/Fluency reporting system, reports are being signed by the in house radiologists without review as a courtesy to insure prompt reporting. The interpreting radiologist is fully responsible for the content of the report.
--- NOTE | 2021-09-26 13:50 | EKG ---
Test Date: 2021-09-24 Test Time: 03:12:16 Clin Application Specialist: LENI MEASUREMENT RESULTS: Intervals: Rate: 50 UT: 146 QRSD: 72 QT: 482 QTc: 439 Wall: P: 27 UT: 146 QRS: 80 T: 68 INTERPRETIVE STATEMENTS: Sinus bradycardia Cannot rule out Anterior infarct, age undetermined Abnormal ECG Compared to ECG 08/01/2021 10:32:10 Myocardial infarct finding now present Electronically Signed On 09-26-21 13:46:57 CDT by Simone Daley
== END 2021-09-24 06:41 | disposition home or self-care (01) ==
LOC: ER 02:34
DX: J20.9 Acute bronchitis, unspecified (principal); L29.9 Pruritus, unspecified; R20.2 Paresthesia of skin; S05.00XA Injury of conjunctiva and corneal abrasion without foreign body, unspecified eye, initial encounter; F41.9 Anxiety disorder, unspecified; F20.9 Schizophrenia, unspecified; Z88.6 Allergy status to analgesic agent
CPT/HCPCS: 36415; 71045; 71275; 80048; 80076; 81003; 83735; 83880; 84100; 84484; 85025; 85379; 85610; 93005; 96361; 96374; 96375; 99284; J1200; J7030; J7512; Q9967; U0003

== ENCOUNTER 2022-02-25 13:41 | Emergency (ER) | payer OTHER, SELFPAY ==
--- OUTSIDE RECORDS SUMMARY | 2022-02-25 13:44 | XMS REPORT | Continuity of Care Document ---
:1975 Author Organization [facility] t Address [address] [place] [address] Care Team Providers Name Role Phone Conner Ball [facility], [facility] Primary Care P hysician REE AHN Attending Clinician Unavailable Ree Ahn MD Attending Clinician Doctor Unassigned, [place] Attending Clinician Unavailable Problems Condition Condition Condition Status Onset Resolution Last Treating Co mments Source Name Details Category Date Date Treatment Clinician Date Supervisio Supervisio Disease Active U osminers n of other n of other -18 it y of normal normal 00:00: [place] 00 [facility] Lump or Lump or Disease Active Univers mass in mass in 09-20 ity of breast breast 00:00: [address] Disease Active U nivers care and care and 10-25 ity of examin[place] examin[place] Medical immediatel immediatel Br anch y after y after delivery delivery Normal Normal Disease Active Univers delivery delivery 10-25 ity of 00:00: [address] Allergies, Adverse Reactions, Alerts Allergy Allergy Status Severity Reaction(s) Onset Inactive Treating Comm ents Source Name Type Date Date Clinician SEAFOOD/ Food Active Med Hives Univers FISH - ity of 00:00: [address] Branch Seafood/ Food Active Hives Crawfish Univer s Fish Allergy - ity of 00:00: [place] 00 Medical Branch ASPIRIN DRUG Active Hives 2005- Univers INGREDI - ity of 00:00: [place] [facility] Aspirin Propensi Active Hives 2005- Univers ty to 10-25 ity of adverse 00:00: [place] reaction 00 Medical s Branch Social History Social Habit Start Date Stop Date Quantity Comments Source Exposure to 2021-12-22 2022-01-01 Not sure [facility] SARS-CoV-2 00:00:00 09:54:00 [facility] (event) Branch Alcohol intake 2018-07-25 2018-07-25 Current University 00:00:00 00:00:00 non-drinker of [facility] alcohol [place] (finding) Sex Ass[birth year] Universit y of 00:00:00 00:00:00 [facility] Smoking Status Start Date Stop Date Source Never smoked tobacco [facility] Medications Ordered Filled Start Stop Current Ordering Indication Dosage Frequency Signature Comments Components Source Medication Medication Date Date Medication? Clinician (SIG) Name Name vandana 2021-02 Yes [id number] 250mg Take 1 Univers n 250 mg 1-13 tablet by ity of tablet 00:00: mouth [place] 00 SEE-INSTRU Medical CTIONS. Branch Take 500 mg day 1, then 250 mg days 2 to 5. acetaminoph Yes [id number] 1{tbl} Take 1 Univers en-codeine 6-06 tablet by ity of (TYLENOL-CO 00:00: mouth [place] DEINE #3) 00 every 4 Medical 300-30 mg (four) Branch tablet hours as needed for Pain (scale 7-10). ondansetron Yes [id number] 4mg Take 1 Univers 4 mg 6-06 tablet by ity of disintegrat 00:00: mouth [place] ing tablet 00 every 8 Medica l (eight) Branch hours as needed for Nausea and Vomiting (N/V). acetaminoph Yes [id number] 1{tbl} Take 1 Univers en-codeine 6-06 tablet by ity of (TYLENOL-CO 00:00: mouth [place] DEINE #3) 00 every 4 Medical 300-30 mg (four) Branch tablet hours as needed for Pain (scale 7-10). ondansetron Yes [id number] 4mg Take 1 Univers 4 mg 6-06 tablet by ity of disintegrat 00:00: mouth [place] ing tablet 00 every 8 Medica l (eight) Branch hours as needed for Nausea and Vomiting (N/V). triamcinolo Yes Apply to Un trip ne 0.5 % 7-15 area(s) 2 ity of ointment 09:47: (two) [place] 05 times Medical daily. Branch triamcinolo Yes Apply to Un trip ne 0.5 % 7-15 area(s) 2 ity of ointment 09:47: (two) [place] 05 times Medical daily. Branch Vital Signs Vital Name Observation Time Observation Value Comments Source Systolic blood 2022-01-01 15:54:00 131 mm[Hg] [facility] Diastolic blood 2022-01-01 15:54:00 84 mm[Hg] [facility] Heart rate 2022-01-01 15:54:00 90 /min [facility] Body temperature 2022-01-01 15:54:00 36.61 [facility] Respiratory rate 2022-01-01 15:54:00 20 /min [facility] Body weight 2022-01-01 15:54:00 63.504 kg [facility] BMI 2022-01-01 15:54:00 27.34 kg/m2 [facility] Oxygen saturation in 2022-01-01 15:54:00 98 /min [facility] Arterial blood by [facility] Pulse oximetry Branch Procedures Procedure Date / Time Performed Performing Clinician Sourc e RAPID INFLUENZA A/B 2022-01-01 16:04:00 Ree Ahn [facility] COVID-19 (ID NOW 2022-01-01 16:04:00 Ree Ahn [facility] RAPID TESTING) Medical [place] NOTICE OF PRIVACY 2022-01-01 15:45:21 Doctor Unassigned, No [facility] PRACTICES Name [facility] CONSENT/REFUSAL FOR 2022-01-01 15:45:05 Doctor Unassigned, No [facility] AND Name Medical Branch TREATMENT Encounters Start End Encounter Admission Attending Care Care Encounter Source Date/Time Date/Time Type Type Clinicians Facility Department ID 2022-01-01 2022-01-01 Emergency X JIMY CTOBINNA ERT [id number] Univers 09:56:00 11:11:00 REE itbaron of [facility] 2022-01-01 2022-01-01 Emergency ABIGAIL Ahn [id number] Univers 09:56:00 11:11:00 Ree DIAZ [id number] ity of [place] [id number] 084 Branch 2022-01-01 2022-01-01 Orders Doctor MAX [id number] Univers 00:00:00 00:00:00 Only Unassigned, HOLLIS [id number] [facility] [id number] [place] [id number] [facility] 009 Branch Results Test Description Test Time Test Comments Results Result [facility] e Comments SCR MAMM 2017-12-25 - SCR MAMM BILATERAL BILATERAL CAD 15:48:19 CAD DIGITALBILATERAL DIGITAL FIRST EVER DIGITAL SCREENING MAMMOGRAM WITH CAD: 12/19/2017CLINICAL: Asymptomatic. Current mammographic images were evaluated by either a [employer] M-Vu or a [employer]shopping ImageChecker CAD (computer aided detection system). No [...] prominent lymph nodes.Esme Chiang M.D. el/:12/25/2017 15:48:19 Lead Sql Developer: Jesusita Giron MM, [facility] [place] TRUECar Mammographyletter sent: Additional Imaging Mammogram BI-RADS: 0 Indeterminate
[2022-02-25] MEDS ORDERED: LIDOCAINE 1% MPF 30 ML VIAL ONE (14:16)
--- NOTE | 2022-02-25 14:39 | ER ---
Nurse's Notes [facility] Name: Sobia Ang Age: 46 yrs Sex: Female : 1975 Arrival Date: 02/25/2022 Time: 13:42 Bed Treatment Private MD: Diagnosis: Cutaneous abscess of left axilla Presentation: 02/25 13:50 Chief complaint: Patient states: she has a boil under her left armpit that is kc6 continuing to get bigger. stated her arm feels numb, she's dizzy, and tired. Coronavirus screen: Vaccine status: Patient reports being unvaccinated. At this time, the client does not indicate any symptoms associated with coronavirus-19. Ebola Screen: No symptoms or risks identified at this time. Initial Sepsis Screen: Does the patient meet any 2 criteria? No. Patient's initial sepsis screen is negative. Does the patient have a suspected source of infection? No. Patient's initial sepsis screen is negative. Risk Assessment: Do you want to hurt yourself or someone else? Patient reports no desire to harm self or others. Onset of symptoms was February 25, 2022. 13:50 Method Of Arrival: Ambulatory 6 13:50 Acuity: FRANCES 3 kc6 Triage Assessment: 13:52 General: Appears in no apparent distress. comfortable, Behavior is calm, cooperative, kc6 appropriate for age. Pain: Complains of pain in left armpit Pain does not radiate. Pain currently is 9 out of 10 on a pain scale. Quality of pain is described as tingling, throbbing, numb, Pain began 2-3 days ago. Is continuous, Alleviated by nothing. Aggravated by increased activity, Also complains of no other associated symptoms. Derm: Reports "golf ball size" boil under her left axillary. 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 Flu vaccine is not up to date. - Social history:: Smoking status: Patient denies any tobacco usage or history of. Screenin:00 [facility] ED Fall Risk Assessment (Adult) History of falling in the last 3 months, kb3 including since admission No falls in past 3 months (0 pts) Confusion or Disorientation No (0 pts) Intoxicated or Sedated No (0 pts) Impaired Gait No (0 pts) Mobility Assist Device Used No (0 pt) Altered Elimination No (0 pt) Score/Fall Risk Level 0 - 2 = Low Risk Oriented to surroundings, Maintained a safe environment, Educated pt \\T\\ family on fall prevention, incl call for assistance when getting out of bed, Assessed \\T\\ reinforced patient's understanding of fall precautions, Provided non-skid footwear, Hourly rounding (assess needs \\T\\ fall precautionary measures) done, Used ambulatory aids as needed (educated on \\T\\ assisted with), Used gait belt as appropriate. Abuse screen: Denies threats or abuse. Denies injuries from another. Nutritional screening: No deficits noted. Tuberculosis screening: No symptoms or risk factors identified. Assessment: 14:00 General: Appears in no apparent distress. uncomfortable, Behavior is calm, cooperative, kb3 Pt reports abscess in left axilla x3-4 days with pain. swelling, redness. 14:00 Derm: Abscess located on left axilla is half dollar sized. kb3 Vital Signs: 13:50 BP 119 / 56; Pulse 66; Resp 18 S; Pulse Ox 100% on R/A; Weight 68.04 kg; Height 5 ft. 0 kc6 in. (152.40 cm); Pain 9/10; 14:50 BP 123 / 68; Pulse 74; Resp 18; Pulse Ox 99% ; kb3 13:50 Body Mass Index 29.29 (68.04 kg, 152.40 cm) kc6 ED Course: 13:42 Patient arrived in ED. as 13:42 Herberth Ryan PA is PHCP. [facility] 13:42 Renan Montiel MD is Attending Physician. [facility] 13:52 Triage completed. 6 13:52 Arm band placed on. kc6 14:00 Patient has correct armband on for positive identification. Placed in gown. Bed in low kb3 position. Call light in reach. Side rails up X 1. Warm blanket given. 14:09 Kiara Cox, RN is Primary Nurse. kb3 14:20 Assist provider with I \\T\\ D: Set up I\\T\\D tray. Performed by Herberth PATTERSON. kb 3 14:20 Patient did not have IV access during this emergency room visit. kb3 14:35 Assist provider with I \\T\\ D: Dressing with 4X4s, tape. kb3 14:38 Edilberto Murray MD is Referral Physician. jmm Administered Medications: 14:40 Drug: Lidocaine (1 %) 20 ml {Note: Administered by Robert PATTERSON during I\\T\\D procedure.} kb3 Volume: 20 ml; Route: Infiltration; 15:02 Follow up: Response: No adverse reaction kb3 14:56 Drug: Bactrim (trimethoprim-sulfamethoxazole) (160 mg-800 mg (DS) 1 tablet Route: PO; kb3 15:02 Follow up: Response: No adverse reaction kb3 14:56 Drug: Doxycycline 100 mg Route: PO; kb3 15:01 Follow up: Response: No adverse reaction kb3 Medication: 14:00 VIS not applicable for this client. kb3 Outcome: 14:38 Discharge ordered by . jm 15:01 Discharged to home ambulatory. kb3 15:01 Condition: stable 15:01 Discharge instructions given to patient, Instructed on discharge instructions, follow up and referral plans. medication usage, wound care, Demonstrated understanding of instructions, follow-up care, medications, wound care, Prescriptions given X 3. 15:01 Patient left the ED. kb3 Signatures: Herberth Ryan PA PA jmm Martinez, Amelia as [place], Kaitlyn RN RN kc6 Kiara Cox, RN RN kb3 Corrections: (The following items were deleted from the chart) 15:00 14:20 Assist provider with I \\T\\ D: Set up I\\T\\D tray. Performed by Herberth PATTERSON kb 3 Dressing with 4X4s, kb3
--- NOTE | 2022-02-25 14:39 | EDPHYS ---
Physician Documentation [facility] Name: Sobia Ang Age: 46 yrs Sex: Female : 1975 Arrival Date: 02/25/2022 Time: 13:42 Bed Treatment Private MD: ED Physician Renan Montiel HPI: 02/25 13:57 This 46 yrs old Female presents to ER via Ambulatory with complaints of Boil. [facility] 13:57 Onset: The symptoms/episode began/occurred gradually, 3 day(s) ago. Is a 46-year-old [facility] female with history of schizophrenia, bipolar the presents emerged department with complaints of left axillary swelling. Presents with 3 days ago. Patient states she has used llut-dgo-cjltuvw medication to attempt to drain the area with no relief. Denies fever. Patient states having similar episodes in previous other areas of her body.. 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 Flu vaccine is not up to date. - Social history:: Smoking status: Patient denies any tobacco usage or history of. ROS: 13:57 Constitutional: Negative for fever, chills, and weight loss, Cardiovascular: Negative jm for chest pain, palpitations, and edema, Respiratory: Negative for shortness of breath, cough, wheezing, and pleuritic chest pain. 13:57 Skin: Positive for abscess. 13:57 All other systems are negative. Exam: 13:57 Constitutional: This is a well developed, well nourished patient who is awake, alert, jmm and in no acute distress. Head/Face: atraumatic. Eyes: EOMI, no conjunctival erythema appreciated ENT: Moist Mucus Membranes Neck: Trachea midline, Supple Chest/axilla: Normal chest wall appearance and motion. Cardiovascular: Regular rate and rhythm. No edema appreciated Respiratory: Normal respirations, no respiratory distress appreciated Abdomen/GI: Non distended Back: Normal ROM 13:57 Skin: Abscess noted to the left axillary. 13:57 Neuro: Orientation: is normal, Mentation: is normal, Memory: is normal. 13:57 Psych: Behavior/mood is pleasant, cooperative. Vital Signs: 13:50 BP 119 / 56; Pulse 66; Resp 18 S; Pulse Ox 100% on R/A; Weight 68.04 kg; Height 5 ft. 0 kc6 in. (152.40 cm); Pain 9/10; 14:50 BP 123 / 68; Pulse 74; Resp 18; Pulse Ox 99% ; kb3 13:50 Body Mass Index 29.29 (68.04 kg, 152.40 cm) kc6 Procedures: 19:24 I \T\ D: Incision and drainage was performed for an abscess of the bilateral axilla. jmm Prepped with Betadine, Anesthetized with 5 ml's 1% Lidocaine. Incised with #11 blade. Drained large amount purulent fluid. Packed with iodoform gauze, Dressing: sterile 4x4 gauze, the patient tolerated the procedure well. MDM: 13:57 Patient medically screened. [facility] 14:38 Data reviewed: vital signs, nurses notes. Counseling: I had a detailed discussion with [facility] the patient and/or guardian regarding: the historical points, exam findings, and any diagnostic results supporting the discharge/admit diagnosis, the need for outpatient follow up, to return to the emergency department if symptoms worsen or persist or if there are any questions or concerns that arise at home. 14:56 ED course: Patient is alert and non toxic in appearance in the ED. No signs of sepsis. [facility] Patient given wound infection precautions. . 02/25 14:09 Order name: Gown patient; Complete Time: 14:19 [facility] 02/25 14:33 Order name: Wound Care; Complete Time: 14:56 [facility] Administered Medications: 14:40 Drug: Lidocaine (1 %) 20 ml {Note: Administered by Robert PATTERSON during I\T\D procedure.} kb3 Volume: 20 ml; Route: Infiltration; 15:02 Follow up: Response: No adverse reaction kb3 14:56 Drug: Bactrim (trimethoprim-sulfamethoxazole) (160 mg-800 mg (DS) 1 tablet Route: PO; kb3 15:02 Follow up: Response: No adverse reaction kb3 14:56 Drug: Doxycycline 100 mg Route: PO; kb3 15:01 Follow up: Response: No adverse reaction kb3 Disposition: 18:59 Co-signature as Attending Physician, Renan Montiel MD. rn Disposition Summary: 02/25/22 14:38 Discharge Ordered Location: Home jmm Condition: Stable jmm Diagnosis - Cutaneous abscess of left axilla jmm Followup: jmm - With: Edilberto Murray MD - When: 2 - 3 days - Reason: Recheck today's complaints, Continuance of care, Re-evaluation by your physician Discharge Instructions: - Discharge Summary Sheet jm - Skin Abscess jm Forms: - Work release form jmm - Medication Reconciliation Form [facility] - Thank You Letter [facility] - Antibiotic Education [facility] - Prescription Opioid Use [facility] Prescriptions: - Ibuprofen 600 mg Oral Tablet - take 1 tablet by ORAL route every 8 hours As needed take with food; 30 tablet; jmm Refills: 0, Product Selection Permitted - Doxycycline Hyclate 100 mg Oral Tablet - take 1 tablet by ORAL route every 12 hours; 20 tablet; Refills: 0, Product [facility] Selection Permitted - Bactrim DS 800-160 mg Oral Tablet - take 1 tablet by ORAL route every 12 hours for 10 days; 20 tablet; Refills: 0, jmm Product Selection Permitted Signatures: Herberth Ryan PA PA jm Renan Montiel MD MD rn Kaylee Angel RN RN kc6 Kiara Cox, ANNA RN kb3 Corrections: (The following items were deleted from the chart) 19:23 13:57 This 46 yrs old Female presents to ER via Ambulatory with complaints of jmm Boil. jmm
[2022-02-25] MEDS ORDERED: SMZ./TMP. 800/160 MG TABLET ONE (14:47)
[2022-02-25] MEDS ORDERED: DOXYCYCLINE 100 MG CAP PO ONE (14:47)
[2022-02-25 15:14] VITALS: BP 123/68; O2SAT 99
== END 2022-02-25 15:01 | disposition home or self-care (01) ==
LOC: ER 13:41
PROC: 0H9CXZZ Drainage of Left Upper Arm Skin, External Approach (ICD-10-PCS; principal; 2022-02-25)
DX: L02.412 Cutaneous abscess of left axilla (principal); Z88.6 Allergy status to analgesic agent
CPT/HCPCS: 99283; 10060; J2001

== ENCOUNTER 2022-09-21 08:16 | Emergency (ER) | payer OTHER, SELFPAY ==
--- OUTSIDE RECORDS SUMMARY | 2022-09-21 08:37 | XMS REPORT | Continuity of Care Document ---
:1975 Author Organization [facility] t Address [address] [place] [address] [address] [place] [address] Care Team Providers Name Role Phone Conner Ball [facility], [facility] Primary Care P hysician REE AHN Attending Clinician Unavailable Ree Ahn MD Attending Clinician Doctor Unassigned, [place] Attending Clinician Unavailable Problems Condition Condition Condition Status Onset Resolution Last Treating Co mments Source Name Details Category Date Date Treatment Clinician Date Supervisio Supervisio Disease Active U jermain n of other n of other 11-06 it y of normal normal 00:00: [place] 00 [facility] Lump or Lump or Disease Active Univers mass in mass in 09-20 ity of breast breast 00:00: [address] Disease Active U nivers care and care and 10-25 ity of examin[place] Medical immediatel immediatel Br anch y after y after delivery delivery Normal Normal Disease Active Univers delivery delivery 10-25 ity of 00:00: [address] Allergies, Adverse Reactions, Alerts Allergy Allergy Status Severity Reaction(s) Onset Inactive Treating Comm ents Source Name Type Date Date Clinician SEAFOOD/ Food Active Med Hives Univers FISH - ity of 00:00: [address] Branch Seafood/ Food Active Hives Crawfish Univer s Fish Allergy -26 ity of 00:00: [place] 00 Medical Branch ASPIRIN DRUG Active Hives 2005- Univers INGREDI 10-25 ity of 00:00: [place] [facility] Aspirin Propensi Active Hives 2005- Univers ty to 10-25 ity of adverse 00:00: [place] reaction 00 Medical s Branch Social History Social Habit Start Date Stop Date Quantity Comments Source Exposure to 2021-12-22 2022-01-01 Not sure [facility] SARS-CoV-2 00:00:00 09:54:00 [facility] (event) Branch Alcohol intake 2018-07-25 2018-07-25 Current University of 00:00:00 00:00:00 non-drinker of [facility] alcohol [place] (finding) Sex Assigned [birth year] Universit y of 00:00:00 00:00:00 [facility] [place] [facility] Smoking Status Start Date Stop Date Source Never smoked tobacco [facility] Medications Ordered Filled Start Stop Current Ordering Indication Dosage Frequency Signature Comments Components Source Medication Medication Date Date Medication? Clinician (SIG) Name Name vandana 2021-02 Yes [id number] 250mg Take 1 Univers n 250 mg 1-13 tablet by ity of tablet 00:00: mouth [place] 00 SEE-INSTRU Medical CTIONS. Branch Take 500 mg day 1, then 250 mg days 2 to 5. acetaminoph Yes [id number] 1{tbl} Take 1 Univers en-codeine 6-06 tablet by ity of (TYLENOL-CO 00:00: mouth [place] DEINE #3) 00 every 4 Medical 300-30 mg (four) Branch tablet hours as needed for Pain (scale 7-10). ondansetron Yes [id number] 4mg Take 1 Univers 4 mg 6-06 tablet by ity of disintegrat 00:00: mouth [place] ing tablet 00 every 8 Medica l (eight) Branch hours as needed for Nausea and Vomiting (N/V). acetaminoph Yes [id number] 1{tbl} Take 1 Univers en-codeine 6-06 tablet by ity of (TYLENOL-CO 00:00: mouth [place] DEINE #3) 00 every 4 Medical 300-30 mg (four) Branch tablet hours as needed for Pain (scale 7-10). ondansetron Yes [id number] 4mg Take 1 Univers 4 mg 6-06 [...] Source Systolic blood 2022-01-01 15:54:00 131 [facility]Hg[facility] 2022-01-01 15:54:00 84 mm[facility]Hg[facility] rate 2022-01-01 15:54:00 90 /min [facility] Body temperature 2022-01-01 15:54:[address] [facility] Respiratory rate 2022-01-01 15:54:00 20 /min [facility] Body weight 2022-01-01 15:54:00 63.504 kg [facility] BMI 2022-01-01 15:54:00 27.34 kg/m2 [facility] Oxygen saturation in 2022-01-01 15:54:00 98 /min [facility] Arterial blood by [facility] Pulse oximetry Branch Procedures Procedure Date / Time Performed Performing Clinician Sourc e RAPID INFLUENZA A/B 2022-01-01 16:04:00 Ree Ahn [facility] COVID-19 (ID NOW 2022-01-01 16:04:00 Ree Ahn [facility] RAPID TESTING) Medical [place] NOTICE OF PRIVACY 2022-01-01 15:45:21 Doctor Unassigned, No Univ [facility] Name [facility] CONSENT/REFUSAL FOR 2022-01-01 15:45:05 Doctor Unassigned, [facility] AND Name Medical Branch TREATMENT Encounters Start End Encounter Admission Attending Care Care Encounter Source Date/Time Date/Time Type Type Clinicians Facility Department ID 2022-01-01 2022-01-01 Emergency X ABIGAIL AHN ERT [id number] Univers 09:56:00 11:11:00 REE itbaron of [facility] [place] [facility] 2022-01-01 2022-01-01 Emergency ABIGAIL Ahn [id number] Univers 09:56:00 11:11:00 Ree DIAZ [id number] ity of [place] [id number] [place] [facility] [id number] [facility] 084 Branch 2022-01-01 2022-01-01 Orders Doctor MAX [id number] Univers 00:00:00 00:00:00 Only Unassigned, HOLLIS [id number] ity of [facility] [id number] [place] [id number] [facility] 009 Branch Results Test Description Test Time Test Comments Results Result [facility] e Comments SCR MAMM 2017-12-25 - SCR MAMM BILATERAL BILATERAL CAD 15:48:19 CAD DIGITALBILATERAL DIGITAL FIRST EVER DIGITAL SCREENING MAMMOGRAM WITH CAD: 12/19/2017CLINICAL: Asymptomatic. Current mammographic images were evaluated by either a [employer] M-Vu or a [employer] ImageChecker CAD (computer aided detection system). No [...] prominent lymph nodes.Esme Chiang M.D. el/:12/25/2017 15:48:19 Senior Bioinformatics Scientist: Jesusita Giron MM, [facility] [place] [facility] Mammographyletter sent: Additional Imaging Mammogram BI-RADS: 0 Indeterminate
[2022-09-21] MEDS ORDERED: hydrOXYzine HCL 25 MG TAB ONE (08:40)
[2022-09-21] MEDS ORDERED: FAMOTIDINE 20 MG TAB ONE (08:40)
[2022-09-21] MEDS ORDERED: predniSONE 20 MG TAB ONE (08:40)
--- NOTE | 2022-09-21 09:12 | EDPHYS ---
Physician Documentation [facility] Name: Sobia Ang Age: 47 yrs Sex: Female : 1975 Arrival Date: 09/21/2022 Time: 08:16 Bed 7 Private MD: ED Physician Rajni Johnson HPI: 09/21 08:52 This 47 yrs old Female presents to ER via Ambulatory with complaints of kb Itching, Breathing Difficulty, Skin Problem. 08:57 The patient's rash thought to be caused by an unknown cause. The rash is located on the kb body diffusely. The rash can be described as erythematous. Onset: The symptoms/episode began/occurred yesterday. Associated signs and symptoms: Pertinent positives: itching, Pertinent negatives: fever, Pain. Severity of symptoms: At their worst the symptoms were mild in the emergency department the symptoms are unchanged. The patient has not experienced similar symptoms in the past. The patient has not recently seen a physician. Pt reports she has a chronic skin condition but yesterday developed itching diffusely with reddened rash. Denies fever, chills. Pt states her mother had something similar to this one time and it was scabies so she is very concerned about that. 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 - Social history:: Smoking status: Patient/guardian denies using tobacco, but has a distant history of tobacco abuse. ROS: 09:09 Constitutional: Negative for fever, chills, and weight loss. kb 09:09 Skin: Positive for rash, diffusely. 09:09 All other systems are negative. Exam: 09:09 Constitutional: This is a well developed, well nourished patient who is awake, alert, kb and in no acute distress. Head/Face: Normocephalic, atraumatic. ENT: Moist Mucous membranes Cardiovascular: Regular rate and rhythm with a normal S1 and S2. No gallops, murmurs, or rubs. No pulse deficits. Respiratory: Respirations even and unlabored. No increased work of breathing. Talking in full sentences MS/ Extremity: Pulses equal, no cyanosis. Neurovascular intact. Full, normal range of motion. Neuro: Awake and alert, GCS 15, oriented to person, place, time, and situation. Moves all extremities. Normal gait. 09:09 Skin: rash a mild rash is noted, rash can be described as erythematous, excoriated, and is diffusely located. Vital Signs: 08:31 BP 99 / 64; Pulse 62; Resp 18; Temp 97.9; Pulse Ox 100% ; Weight 68.04 kg; Height 5 ft. as6 0 in. ; Pain 0/10; 09:22 BP 146 / 79; Pulse 60; Resp 16; Pulse Ox 99% ; bp 08:31 Body Mass Index 29.29 (68.04 kg, 152.4 cm) as6 08:31 Pain Scale: Adult as6 MDM: 08:18 Patient medically screened. kb 09:10 Differential diagnosis: impetigo, allergic reaction, parasite infection. Data reviewed: kb vital signs, nurses notes. Counseling: I had a detailed discussion with the patient and/or guardian regarding: the historical points, exam findings, and any diagnostic results supporting the discharge/admit diagnosis, the need for outpatient follow up, a family practitioner, to return to the emergency department if symptoms worsen or persist or if there are any questions or concerns that arise at home. Administered Medications: 08:33 Drug: predniSONE PO 40 mg Route: PO; ko1 08:33 Drug: hydrOXYzine PO 25 mg Route: PO; ko1 08:33 Drug: Famotidine PO 20 mg Route: PO; ko1 Disposition: 16:47 I reviewed the patient's care provided by Advanced Practice Provider \T\ agree w/ the cp3 diagnosis \T\ care plan. I personally saw the pt \T\ performed a substantive portion of the visit, incldng all aspects of the (History/Exam/Medical Decision Making). Disposition Summary: 09/21/22 09:11 Discharge Ordered Location: Home Condition: Stable kb Diagnosis - Rash and other nonspecific skin eruption kb Followup: kb - With: Emergency Department - When: As needed - Reason: Worsening of condition Followup: kb - With: Private Physician - When: 2 - 3 days - Reason: Recheck today's complaints, Continuance of care, Re-evaluation by your physician Discharge Instructions: - Discharge Summary Sheet kb - Rash, Adult, [id number] kb Forms: - Work release form kb - Medication Reconciliation Form kb - Thank You Letter kb - Antibiotic Education kb - Prescription Opioid Use kb - Patient Portal Instructions kb Prescriptions: - Elimite 5 % Topical Cream - apply 1 application by TOPICAL route one time Wash after 12 hours.; 60 gram; kb Refills: 0, Product Selection Permitted - Pepcid 20 mg Oral Tablet - take 1 tablet by ORAL route every 12 hours for 5 days; 10 tablet; Refills: 0, kb Product Selection Permitted - Prednisone 20 mg Oral Tablet - take 1 tablet by ORAL route once daily for 5 days; 5 tablet; Refills: 0, kb Product Selection Permitted Signatures: Leeanne Cortes, JEROME-C LAST PUTTER AWAY-Rajni Echevarria MD MD cp3 Andre Valdivia RN RN as6 Rena Velasco RN RN ko1 Corrections: (The following items were deleted from the chart) 09:11 08:57 Pt reports she has a chronic skin condition but yesterday developed itching kb diffusely with reddened rash. Denies fever, chills. kb
--- NOTE | 2022-09-21 09:12 | ER ---
Nurse's Notes [facility] Name: Sobia Ang Age: 47 yrs Sex: Female : 1975 Arrival Date: 09/21/2022 Time: 08:16 Bed 7 Private MD: Diagnosis: Rash and other nonspecific skin eruption Presentation: 09/21 08:29 Chief complaint: Patient states: itching, difficulty breathing, lesions to skin. as6 Coronavirus screen: Vaccine status: Patient reports being unvaccinated. At this time, the client does not indicate any symptoms associated with coronavirus-19. Ebola Screen: No symptoms or risks identified at this time. Onset: The symptoms/episode began/occurred yesterday. Anaphylaxis evaluation, no signs or symptoms of anaphylaxis were noted. Initial Sepsis Screen: Does the patient meet any 2 criteria? No. Patient's initial sepsis screen is negative. Does the patient have a suspected source of infection? No. Patient's initial sepsis screen is negative. Risk Assessment: Do you want to hurt yourself or someone else? Patient reports no desire to harm self or others. Onset of symptoms was September 20, 2022. 08:29 Method Of Arrival: Ambulatory as6 08:29 Acuity: FRANCES 4 as6 Triage Assessment: 08:31 General: Appears uncomfortable, Behavior is cooperative, appropriate for age, anxious, as6 restless, Reports open lesions that started on her hands and spread all over, itching that started last night. Reports sob and numbness to bilateral hands that started today. Pain: Denies pain. Neuro: Level of Consciousness is awake, alert, obeys commands, Oriented to person, place, time, situation, Appropriate for age. Cardiovascular: Capillary refill < 3 seconds Patient's skin is warm and dry. Respiratory: Respiratory effort is even, unlabored, Respiratory pattern is regular, symmetrical. Derm: generalized roth, scaly, dry skin noted. Pt states "I have a skin condition called Darias.". 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 - Social history:: Smoking status: Patient/guardian denies using tobacco, but has a distant history of tobacco abuse. Screenin:21 [facility] ED Fall Risk Assessment (Adult) History of falling in the last 3 months, bp including since admission No falls in past 3 months (0 pts). Abuse screen: Denies threats or abuse. Denies injuries from another. Nutritional screening: No deficits noted. Tuberculosis screening: No symptoms or risk factors identified. Assessment: 08:31 General: SEE TRIAGE NOTE. bp 09:21 Reassessment: PT DC HOME AMBULATORY. Respiratory: Airway is patent Breath sounds are bp clear bilaterally. Vital Signs: 08:31 BP 99 / 64; Pulse 62; Resp 18; Temp 97.9; Pulse Ox 100% ; Weight 68.04 kg; Height 5 ft. as6 0 in. ; Pain 0/10; 09:22 BP 146 / 79; Pulse 60; Resp 16; Pulse Ox 99% ; bp 08:31 Body Mass Index 29.29 (68.04 kg, 152.4 cm) as6 08:31 Pain Scale: Adult as6 ED Course: 08:17 Patient arrived in ED. rg4 08:18 Leeanne Cortes FNP-C is PHCP. kb 08:18 Rajni Johnson MD is Attending Physician. kb 08:21 Rnea Velasco, ANNA is Primary Nurse. ko1 08:31 Triage completed. as6 08:31 Arm band placed on Patient placed in waiting room. as6 09:21 Patient has correct armband on for positive identification. Bed in low position. Call bp light in reach. Side rails up X2. 09:21 No provider procedures requiring assistance completed. Patient did not have IV access bp during this emergency room visit. Administered Medications: 08:33 Drug: predniSONE PO 40 mg Route: PO; ko1 08:33 Drug: hydrOXYzine PO 25 mg Route: PO; ko1 08:33 Drug: Famotidine PO 20 mg Route: PO; ko1 Medication: 09:21 VIS not applicable for this client. bp Outcome: 09:11 Discharge ordered by . kb 09:21 Discharged to home ambulatory, with family. bp 09:21 Condition: stable 09:21 Discharge instructions given to patient, Instructed on discharge instructions, follow up and referral plans. medication usage, Demonstrated understanding of instructions, follow-up care, medications, Prescriptions given X 3. 09:23 Patient left the ED. bp Signatures: Leeanne Cortes, TUANC TUBE WRAPPER-Karla Chavez rg4 Darrick Lew RN RN bp Andre Valdivia, RN RN as6 Rena Velasco RN RN ko1
[2022-09-21 09:29] VITALS: TEMP 97.9
[2022-09-21 09:30] VITALS: BP 146/79; O2SAT 99
== END 2022-09-21 09:23 | disposition home or self-care (01) ==
LOC: ER 08:16
DX: R21 Rash and other nonspecific skin eruption (principal)
CPT/HCPCS: 99283; J7512

== ENCOUNTER 2022-12-16 21:37 | Emergency (ER) | payer SELFPAY ==
--- OUTSIDE RECORDS SUMMARY | 2022-12-16 21:40 | XMS REPORT | Continuity of Care Document ---
:1975 Author Organization [facility] t Address [address] [facility] [place] [address] [place] [address] Care Team Providers Name Role Phone [facility], [facility] Primary Care P hysician REE AHN Attending Clinician Unavailable Ree Ahn MD Attending Clinician Doctor Unassigned, [place] Attending Clinician Unavailable Problems Condition Condition Condition Status Onset Resolution Last Treating Co mments Source Name Details Category Date Date Treatment Clinician Date Supervisio Supervisio Disease Active U nivers n of other n of other -18 it y of normal normal 00:00: [place] 00 [facility] Lump or Lump or Disease Active Univers mass in mass in 09-20 ity of breast breast 00:00: [address] Disease Active U nivers care and care and 10-25 ity of examin[place] Medical immediatel immediatel Br anch y after y after delivery delivery Normal Normal Disease Active Univers delivery delivery 10-25 ity of 00:00: [address] Allergies, Adverse Reactions, Alerts Allergy Allergy Status Severity Reaction(s) Onset Inactive Treating Comm ents Source Name Type Date Date Clinician SEAFOOD/ Food Active Med Hives Univers FISH - ity of 00:00: [address] Branch Seafood/ Food Active Hives Crawfish [...] Source Exposure to 2021-12-22 2022-01-01 Not sure [facility] SARS-CoV-2 00:00:00 09:54:00 [facility] (event) Branch Alcohol intake 2018-07-25 2018-07-25 Current University 00:00:00 00:00:00 non-drinker of [facility] alcohol [place] (finding) Sex Ass[birth year] Universit y of 00:00:00 00:00:00 [facility] Smoking Status Start Date Stop Date Source Never smoked tobacco [facility] Medications Ordered Filled Start Stop Current Ordering Indication Dosage Frequency Signature Comments Components Source Medication Medication Date Date Medication? Clinician (SIG) Name Name vandana 2021-02 Yes [id number] 250mg Take 1 Univers n 250 mg 1-13 tablet by ity of tablet 00:00: mouth [place] 00 SEE-INSTRU Medical CTIONS. Branch Take 500 mg day 1, then 250 mg days 2 to 5. acetaminoph Yes [id number] 1{tbl} Take 1 Univers en-codeine 6-06 tablet by ity of (TYLENOL-CO 00:00: mouth [place] DEINE #3) 00 every 4 Medical 300-30 mg (four) Branch tablet hours as needed for Pain (scale 7-10). ondansetron Yes [id number] 4mg Take 1 Univers 4 mg 6-06 tablet by ity of disintegrat 00:00: mouth [place] ing tablet 00 every 8 Medica l (eight) Branch hours as needed for Nausea and Vomiting (N/V). acetaminoph Yes [id number] 1{tbl} Take 1 Univers en-codeine 6-06 tablet by ity of (TYLENOL-CO 00:00: mouth [place] DEINE #3) 00 every 4 Medical 300-30 mg (four) Branch tablet hours as needed for Pain (scale 7-10). ondansetron Yes [id number] 4mg Take 1 Univers 4 mg 6-06 [...] Source Systolic blood 2022-01-01 15:54:00 131 mm[Hg] [facility] Di[facility] 2022-01-01 15:54:00 84 mm[Hg] [facility] Heart rate 2022-01-01 15:54:00 90 /min [facility] Body temperature 2022-01-01 15:54:00 36.61 [facility] Respiratory rate 2022-01-01 15:54:00 20 /min [facility] Body weight 2022-01-01 15:54:00 63.504 kg [facility] BMI 2022-01-01 15:54:00 27.34 kg/m2 [facility] Oxygen saturation in 2022-01-01 15:54:00 98 /min [facility] Arterial blood by [facility] Pulse oximetry Branch Procedures Procedure Date / Time Performed Performing Clinician Sourc e RAPID INFLUENZA A/B 2022-01-01 16:04:00 Ree Ahn [facility] COVID-19 (ID NOW 2022-01-01 16:04:00 Ree Ahn [facility] RAPID TESTING) Medical [place] NOTICE OF PRIVACY 2022-01-01 15:45:21 Doctor Unassigned, No Univ [facility] PRACTICES Name [facility] CONSENT/REFUSAL FOR 2022-01-01 15:45:05 Doctor Unassigned, No [facility] AND Name Medical Branch TREATMENT Encounters Start End Encounter Admission Attending Care Care Encounter Source Date/Time Date/Time Type Type Clinicians Facility Department ID 2022-11-02 2022-11-02 Outpatient SFA SFA [id number] Conner 17:01:22 17:01:22 [id number] F Prasanna 2022-01-01 2022-01-01 Emergency X ABIGAIL AHN ERT [id number] Univers 09:56:00 11:11:00 REE ity of [facility] 2022-01-01 2022-01-01 Emergency Bernabe [facility] [id number] Univers 09:56:00 11:11:00 Ree DIAZ [id number] ity of [place] [id number] [id number] [facility] 084 Branch 2022-01-01 2022-01-01 Orders Doctor MAX [id number] Univers 00:00:00 00:00:00 Only Unassigned, HOLLIS [id number] ity of [place] [facility] [id number] [place] [id number] [facility] 009 Branch Results Test Description Test Time Test Comments Results Result Sour e Comments SCR MAMM 2017-12-25 - SCR MAMM BILATERAL BILATERAL CAD 15:48:19 CAD DIGITALBILATERAL DIGITAL FIRST EVER DIGITAL SCREENING MAMMOGRAM WITH CAD: 12/19/2017CLINICAL: Asymptomatic. Current mammographic images were evaluated by either a [employer] M-Vu or a [employer] Image[employer]er CAD (computer aided detection system). No [...] prominent lymph nodes.Esme Chiang M.D. el/:12/25/2017 15:48:19 Vacuum Metalizer Operator: Jesusita Giron MM, [facility] Mammographyletter sent: Additional Imaging Mammogram BI-RADS: 0 Indeterminate
--- NOTE | 2022-12-16 22:20 | EDPHYS ---
Physician Documentation [facility] Name: Sobia Ang Age: 47 yrs Sex: Female : 1975 Arrival Date: 12/16/2022 Time: 21:37 Bed DIS1 Private MD: ED Physician Boaz Arenas HPI: 12/17 02:10 This 47 yrs old Female presents to ER via Ambulatory with complaints of Facial rt Swelling. 02:10 Patient presents to the ED with a swelling to the right side of her face that she first rt noticed at 8 this evening when she woke up. Patient states that she does have poor dentition, needs to see a dentist but cannot make it on Sunday. Denies other acute complaints at this time, symptoms are mild in severity, no other aggravating or alleviating factors.. 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 - Family history:: not pertinent. ROS: 12/17 02:10 Constitutional: Negative for fever, chills, and weight loss, Neck: Negative for injury, rt pain, and swelling, Cardiovascular: Negative for chest pain, palpitations, and edema, Respiratory: Negative for shortness of breath, cough, wheezing, and pleuritic chest pain, Abdomen/GI: Negative for abdominal pain, nausea, vomiting, diarrhea, and constipation, ENT: Positive for Facial swelling, dental pain, Exam: 02:10 Constitutional: This is a well developed, well nourished patient who is awake, alert, rt and in no acute distress. Head/Face: Normocephalic, atraumatic. Chest/axilla: Normal chest wall appearance and motion. Nontender with no deformity. No lesions are appreciated. Cardiovascular: Regular rate and rhythm with a normal S1 and S2. No gallops, murmurs, or rubs. Normal PMI, no JVD. No pulse deficits. Respiratory: Lungs have equal breath sounds bilaterally, clear to auscultation and percussion. No rales, rhonchi or wheezes noted. No increased work of breathing, no retractions or nasal flaring. Abdomen/GI: Soft, non-tender, with normal bowel sounds. No distension or tympany. No guarding or rebound. No evidence of tenderness throughout. 02:10 ENT: Multiple dental caries noted, there is swelling to the right lateral mandible with mild tenderness at that area, no fluctuance, no appreciable abscess.. Vital Signs: 12/16 22:13 BP 133 / 68; Pulse 60; Resp 16; Temp 97.4; Pulse Ox 100% on R/A; Weight 68.04 kg; iw Height 5 ft. 0 in. ; Pain 10/29; 22:13 Body Mass Index 29.29 (68.04 kg, 152.4 cm) iw 22:13 Pain Scale: Adult iw MDM: 22:18 Patient medically screened. rt 12/17 02:10 Differential Diagnosis Dental caries, odontogenic infection. Data reviewed: vital rt signs, nurses notes. Test considered but Not performed: CT: No clinical evidence to suggest retropharyngeal abscess, peritonsillar abscess, Mer's angina, CT scan is not indicated.. Counseling: I had a detailed discussion with the patient and/or guardian regarding the historical points, exam findings, and any diagnostic results supporting the discharge/admit diagnosis, the need for outpatient follow up, to return to the emergency department if symptoms worsen or persist or if there are any questions or concerns that arise at home. Administered Medications: 12/16 22:49 Drug: Ketorolac IM 15 mg IM once Route: IM; Site: right gluteus; cm10 23:02 CANCELLED (medication not aVAILABLE): [id number] mg PO once cm10 Disposition Summary: 12/16/22 22:20 Discharge Ordered Notes: Location: Home rt Problem: new rt Symptoms: are unchanged rt Condition: Stable rt Diagnosis - Odontogenic infection rt Followup: rt - With: Private Physician - When: 2 - 3 days - Reason: Discharge Instructions: - Discharge Summary Sheet rt - Dental Caries, Adult rt Forms: - Medication Reconciliation Form rt - Thank You Letter rt - Antibiotic Education rt - Prescription Opioid Use rt - Patient Portal Instructions rt - Leadership Thank You Letter rt Signatures: Zamzam Clarke RN RN iw Boaz Arenas MD MD rt Melinda Celeste RN RN cm10 Corrections: (The following items were deleted from the chart) 23:02 22:55 Amoxicillin PO 875 mg PO once ordered. cm10 cm10 23:02 22:55 Amoxicillin PO 875 mg PO once given. cm10 cm10 23:02 23:00 Amoxicillin PO 875 mg PO once ordered. cm10 cm10
--- NOTE | 2022-12-16 22:20 | ER ---
Nurse's Notes [facility] Name: Sobia Ang Age: 47 yrs Sex: Female : 1975 Arrival Date: 12/16/2022 Time: 21:37 Bed DIS1 Private MD: Diagnosis: Odontogenic infection Presentation: 12/16 22:13 Chief complaint: Patient states: I woke up just now and the right side of jaw was iw swollen. Coronavirus screen: At this time, the client does not indicate any symptoms associated with coronavirus-19. Ebola Screen: Patient negative for fever greater than or equal to 101.5 degrees Fahrenheit, and additional compatible Ebola Virus Disease symptoms Patient denies exposure to infectious person. Patient denies travel to an Ebola-affected area in the 21 days before illness onset. No symptoms or risks identified at this time. Initial Sepsis Screen: Does the patient meet any 2 criteria? No. Patient's initial sepsis screen is negative. Does the patient have a suspected source of infection? No. Patient's initial sepsis screen is negative. Risk Assessment: Do you want to hurt yourself or someone else? Patient reports no desire to harm self or others. Onset of symptoms was December 16, 2022. 22:13 Method Of Arrival: Ambulatory iw 22:13 Acuity: FRANCES 4 iw Triage Assessment: 22:15 General: Appears in no apparent distress. Behavior is calm, cooperative. Pain: iw Complains of pain in right jaw. Neuro: Level of Consciousness is awake, alert, obeys commands, Oriented to person, place, time, situation, Moves all extremities. Full function. Cardiovascular: Patient's skin is warm and dry. Derm: Skin is intact, is healthy with good turgor. 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 - Family history:: not pertinent. Screenin:50 [facility] ED Fall Risk Assessment (Adult) History of falling in the last 3 months, cm10 including since admission No falls in past 3 months (0 pts) Confusion or Disorientation No (0 pts) Intoxicated or Sedated No (0 pts) Impaired Gait No (0 pts) Mobility Assist Device Used No (0 pt) Altered Elimination No (0 pt) Score/Fall Risk Level 0 - 2 = Low Risk Oriented to surroundings, Maintained a safe environment, Hourly rounding (assess needs \T\ fall precautionary measures) done. Abuse screen: Denies threats or abuse. Denies injuries from another. Nutritional screening: No deficits noted. Tuberculosis screening: No symptoms or risk factors identified. Vital Signs: 22:13 BP 133 / 68; Pulse 60; Resp 16; Temp 97.4; Pulse Ox 100% on R/A; Weight 68.04 kg; iw Height 5 ft. 0 in. ; Pain 9/10; 22:13 Body Mass Index 29.29 (68.04 kg, 152.4 cm) iw 22:13 Pain Scale: Adult iw ED Course: 21:40 Patient arrived in ED. gm2 22:09 Boaz Arenas MD is Attending Physician. rt 22:14 Triage completed. iw 22:15 Arm band placed on. iw 22:19 Boaz Arenas MD is Referral Physician. rt 22:51 Patient has correct armband on for positive identification. Provided Education on: ER cm10 process and procedures. . 22:51 No provider procedures requiring assistance completed. Patient did not have IV access cm10 during this emergency room visit. Administered Medications: 22:49 Drug: Ketorolac IM 15 mg IM once Route: IM; Site: right gluteus; cm10 23:02 CANCELLED (medication not aVAILABLE): [id number] mg PO once cm10 Medication: 22:50 VIS not applicable for this client. cm10 Outcome: 22:20 Discharge ordered by . rt 22:51 Discharged to home ambulatory, cm10 22:51 Condition: good 22:51 Discharge instructions given to patient, Instructed on discharge instructions, follow up and referral plans. medication usage, Demonstrated understanding of instructions, follow-up care, medications, Prescriptions given X 1, 23:04 Patient left the ED. cm10 Signatures: Zamzam Clarke, RN RN iw Boaz Arenas MD MD rt Melinda Celeste RN RN cm10 [place] gm2 Corrections: (The following items were deleted from the chart) 23:00 22:55 Amoxicillin PO 875 mg PO cm10 cm10
[2022-12-16] MEDS ORDERED: KETOROLAC 30 MG/ML INJ ONE (23:00)
== END 2022-12-16 23:04 | disposition home or self-care (01) ==
LOC: ER 21:37
DX: K04.7 Periapical abscess without sinus (principal)
CPT/HCPCS: 96372; 99284

== ENCOUNTER 2023-06-10 23:23 | Emergency (ER) | payer OTHER, SELFPAY ==
--- OUTSIDE RECORDS SUMMARY | 2023-06-10 23:26 | XMS REPORT | Continuity of Care Document ---
Author Name Unknown Address [address] [place] [address] [facility] Address [address] [facility] [place] [address] Care Team Providers Care Sales Assistants And Salespersons Name Role Phone [facility], [facility] Care Physician REE AHN Attending Clinician Ree Ribera MD Attending Clinician [phone] Doctor Unassigned, [place] Attending Clinician U navailable Problems Condition Name Condition Details Condition Category Status Onset Date Resolution Date Last Treatment Date Treating Clinician Comments Source Supervisio n of other normal Supervisio n of other normal Disease Active 11-06 00:00: 00 [facility] Lump or mass in breast Lump or mass in breast Disease Active 09-20 00:00: 00 [facility] care and examinatio n immediatel y after delivery care and examinatio n immediatel y after delivery Disease Active 10-25 00:00: 00 [facility] Normal delivery Normal delivery Disease Active 10-25 00:00: 00 [facility] Allergies, Adverse Reactions, Alerts Allergy Name Allergy Type Status Severity Reaction(s) Onset Date Inactive Date Treating Clinician Comments Source SEAFOOD/ FISH Food Active Med Hives 07-14 00:00: 00 [facility] Seafood/ Fish Food Allergy Active Hives 07-14 00:00: 00 Mercedes [facility] ASPIRIN DRUG INGREDI Active Hives 10-25 00:00: 00 [facility] Aspirin Propensi ty to adverse reaction s Active Hives 10-25 00:00: 00 [facility] Social History Social Habit Start Date Stop Date Quantity Comments Source Exposure to SARS-CoV-2 (event) 2021-12-22 00:00:00 2022-01-01 09:54:00 Not sure [facility] Alcohol intake 2018-07-25 00:00:00 2018-07-25 00:00:00 Current non-drinker of alcohol (finding) [facility] Sex Assigned At 1975 00:00:00 1975 00:00:00 [facility] Smoking Status Start Date Stop Date Source Never smoked tobacco [facility] Medications Ordered Medication Name Filled Medication Name Start Date Stop Date Current Medication? Ordering Clinician Indication Dosage Frequency Signature (SIG) Comments Components Source azithromyci n 250 mg tablet 2021-02 00:00: 00 Yes [id number] 250mg Take 1 tablet by mouth SEE-INSTRU CTIONS. Take 500 mg day 1, then 250 mg days 2 to 5. [facility] acetaminoph en-codeine (TYLENOL-CO DEINE #3) 300-30 mg tablet 07-25 00:00: 00 Yes [id number] 1{tbl} Take 1 tablet by mouth every 4 (four) hours as needed for Pain (scale 7-10). [facility] ondansetron 4 mg disintegrat ing tablet 07-25 00:00: 00 Yes [id number] 4mg Take 1 tablet by mouth every 8 (eight) hours as needed for Nausea and Vomiting (N/V). [facility] triamcinolo ne 0.5 % ointment 09-02 09:47: 05 Yes Apply to area(s) 2 (two) times daily. [facility] Vital Signs Vital Name Observation Time Observation Value Comments S our Systolic blood pressure 2022-01-01 15:54:00 131 mm[Hg] [facility] Diastolic blood pressure 2022-01-01 15:54:00 84 mm[Hg] [facility] Heart rate 2022-01-01 15:54:00 90 /min [facility] Body temperature 2022-01-01 15:54:00 36.61 [facility] Respiratory rate 2022-01-01 15:54:00 20 /min [facility] Body weight 2022-01-01 15:54:00 63.504 kg [facility] BMI 2022-01-01 15:54:00 27.34 kg/m2 [facility] Oxygen saturation in Arterial blood by Pulse oximetry 2022-01-01 15:54:00 98 /min [facility] Procedures Procedure Date / Time Performed Performing Clinicia n Source RAPID INFLUENZA A/B 2022-01-01 16:04:00 Ree Ahn [facility] COVID-19 (ID NOW RAPID TESTING) 2022-01-01 16:04:00 Ree Ahn [facility] NOTICE OF PRIVACY PRACTICES 2022-01-01 15:45:21 Doctor Unassigned, [place] [facility] CONSENT/REFUSAL FOR DIAGNOSIS AND TREATMENT 2022-01-01 15:45:05 Doctor Unassigned, [place] [facility] Encounters Start Date/Time End Date/Time Encounter Type Admission Type Attending Clinicians Care Facility Care Department Encounter ID Source 2022-11-02 17:01:22 2022-11-02 17:01:22 Outpatient S[facility] [id number] Conner Quinn Mims 2022-01-01 09:56:00 2022-01-01 11:11:00 Emergency X REE AHN [facility] ERT [id number] [facility] 2022-01-01 09:56:00 2022-01-01 11:11:00 Emergency Ree Ahn [facility] [id number] [facility] 2022-01-01 00:00:00 2022-01-01 00:00:00 Orders Only Doctor Unassigned, [place] [facility] [id number] [facility] Results Test Description Test Time Test Comments Results Resul t Comments Source SCR MAMM BILATERAL CAD DIGITAL 2017-12-25 15:48:19 - SCR MAMM BILATERAL CAD DIGITALBILATERAL FIRST EVER DIGITAL SCREENING MAMMOGRAM WITH CAD: 12/19/2017CLINICAL: Asymptomatic. Current mammographic images were evaluated by either a [employer] M-Vu or a [employer] CAD (computer aided detection system). No prior [...] prominent lymph nodes.Esme Chiang M.D. el/:12/25/2017 15:48:19 Field Operations Farm Manager: Jesusita Giron MM, [facility] Mammographyletter sent: Additional Imaging Mammogram BI-RADS: 0 Indeterminate
[2023-06-11 00:12] LABS: Absolute Eosinophils 0.5 K/uL (0-0.5); Absolute Lymphocytes (CBC) 2.1 K/uL (0.7-4.9); Absolute Monocytes 0.7 K/uL (0.1-1.3); Absolute Neutrophil 5.7 K/uL (1.8-8.0); Basophils % 0.4 % (0-1.3); Eosinophils % 5.6 % (0-4.4); Hematocrit 28.1 % (36.0-45.0); Hemoglobin 9.3 g/dL (12.0-15.0); Lymphocytes % 23.7 % (15.3-44.8); MCH 26.3 pg (27.0-35.0); MCHC 33.3 g/dL (32.0-36.0); MCV 78.9 fL (80-100); MPV 7.5 fL (7.6-11.3); Monocytes % 7.7 % (3.3-12.3); Neutrophils % 62.6 % (41.7-73.7); Nucleated Red Blood Cells % 0.1 % (0-0); Platelets 402 thou/uL (152-406); RBC Red Blood Cell Count 3.56 M/uL (3.86-4.86); Red Cell Distribution Width 15.9 % (12.1-15.2)
[2023-06-11 00:18] LABS: PT Prothrombin Time 12.6 SECONDS (9.5-12.5); Protime INR 1.15
[2023-06-11 00:27] LABS: Anion Gap 7.8 mEq/L (5.0-15.0); BUN Blood Urea Nitrogen 10 mg/dL (7-18); Bicarbonate 23 mEq/L (21-32); Glomerular Filtration Rate 91 ml/min (=/>90); Glucose Level 103 mg/dL (74-106); Magnesium 2.2 mg/dL (1.6-2.4); Potassium 3.8 mEq/L (3.5-5.1); Sodium Level 137 mEq/L (136-145)
[2023-06-11 00:28] LABS: Troponin High Sensitivity < 3.0 pg/mL (<58.9)
[2023-06-11] MEDS ORDERED: ONDANSETRON 4 MG/2 ML VIAL ONE (00:57)
[2023-06-11] MEDS ORDERED: MORPHINE 4 MG/ML SYR ONE (00:57)
[2023-06-11] MEDS ORDERED: IBUPROFEN 400 MG TAB ONE (05:43)
[2023-06-11] MEDS ORDERED: DIAZEPAM 5 MG TABLET ONE (05:44)
--- NOTE | 2023-06-11 05:47 | ER ---
Nurse's Notes [facility] Name: Sobia Ang Age: 48 yrs Sex: Female : 1975 Arrival Date: 06/10/2023 Time: 23:23 Bed 16 Private MD: Diagnosis: Chest pain, unspecified;Tension-type headache Presentation: 06/09 23:25 Chief complaint: Patient states: radiating chest pain. vc1 23:25 Coronavirus screen: Client denies travel out of the [place] in the last 14 days. At this vc1 time, the client does not indicate any symptoms associated with coronavirus-19. Ebola Screen: Patient negative for fever greater than or equal to 101.5 degrees Fahrenheit, and additional compatible Ebola Virus Disease symptoms Patient denies exposure to infectious person. Patient denies travel to an Ebola-affected area in the 21 days before illness onset. No symptoms or risks identified at this time. Initial Sepsis Screen: Does the patient meet any 2 criteria? No. Patient's initial sepsis screen is negative. Does the patient have a suspected source of infection? No. Patient's initial sepsis screen is negative. Risk Assessment: Do you want to hurt yourself or someone else? Patient reports no desire to harm self or others. Onset of symptoms was June 10, 2023. Care prior to arrival: None. Activity prior to arrival: None. Mechanism of Injury: No Mechanism of Injury. Transition of care: patient was not received from another setting of care. 23:25 Method Of Arrival: Ambulatory vc1 23:25 Acuity: FRANCES 3 vc1 Triage Assessment: 23:56 General: Appears distressed, uncomfortable, Behavior is anxious. Pain: Complains of vc1 pain in anterior aspect of left upper chest Pain radiates to left arm and left sternocleidomastoid Pain currently is 9 out of 10 on a pain scale. Quality of pain is described as radiating, sharp, shooting, tingling, Pain began suddenly, 2 hours ago. Is episodic, Noted to be crying. EENT: No deficits noted. No signs and/or symptoms were reported regarding the EENT system. Neuro: Level of Consciousness is awake, alert, obeys commands, Oriented to person, place, time, situation, Appropriate for age. Cardiovascular: Chest pain is described as severe, began 2 hours prior to arrival. 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 Flu vaccine is not up to date. - Infectious Disease History:: Denies. - Social history:: Smoking status: Patient denies any tobacco usage or history of. Patient uses street drugs, marijuana. - Family history:: not pertinent. Screenin:54 [facility] ED Fall Risk Assessment (Adult) History of falling in the last 3 months, vc1 including since admission No falls in past 3 months (0 pts) Confusion or Disorientation No (0 pts) Intoxicated or Sedated No (0 pts) Impaired Gait No (0 pts) Mobility Assist Device Used No (0 pt) Altered Elimination No (0 pt) Score/Fall Risk Level 0 - 2 = Low Risk Oriented to surroundings, Maintained a safe environment, Educated pt \T\ family on fall prevention, incl call for assistance when getting out of bed. Abuse screen: Denies threats or abuse. Nutritional screening: No deficits noted. Tuberculosis screening: No symptoms or risk factors identified. Assessment: 06/10 00:08 General: Appears uncomfortable, Behavior is calm, cooperative. Pain: Complains of pain tm6 in left arm and chest Pain currently is 8 out of 10 on a pain scale. Quality of pain is described as tingling. Pain: Pain does not radiate. Pain:. 00:08 Pain: Pain began suddenly, Is continuous. Neuro: Level of Consciousness is awake, tm6 alert, obeys commands, Oriented to person, place, time, situation, Reports paresthesias in left arm and chest. Cardiovascular: Reports chest pain, Patient's skin is warm and dry. Rhythm is regular. Respiratory: Airway is patent Respiratory effort is even, unlabored, Respiratory pattern is regular, symmetrical. GI: Abdomen is flat, non-distended. : No signs and/or symptoms were reported regarding the genitourinary system. EENT: No signs and/or symptoms were reported regarding the EENT system. Derm: No signs and/or symptoms reported regarding the dermatologic system. Musculoskeletal: Reports numbness in left arm and chest. 01:50 Reassessment: Patient appears in no apparent distress at this time. Patient is alert, tm6 oriented x 3, equal unlabored respirations, skin warm/dry/pink. Patient is alert/active/playful, equal unlabored respirations, skin warm/dry/pink. 03:02 Reassessment: Patient and/or family updated on plan of care and expected duration. Pain tm6 level reassessed. Patient is alert, oriented x 3, equal unlabored respirations, skin warm/dry/pink. 05:21 Reassessment: Patient appears in no apparent distress at this time. tm6 06:00 Reassessment: Patient and/or family updated on plan of care and expected duration. Pain tm6 level reassessed. Patient is alert, oriented x 3, equal unlabored respirations, skin warm/dry/pink. Vital Signs: 06/09 23:25 BP 130 / 70; Pulse 60; Resp 15; Temp 98.6; Pulse Ox 100% ; Weight 68.04 kg; Height 5 vc1 ft. 0 in. ; Pain 9/10; 23:47 BP 147 / 102; Pulse 70; Resp 18; Pulse Ox 100% ; pm6 04/22 01:48 BP 124 / 68; Pulse 58; Pulse Ox 99% on R/A; tm6 03:01 BP 122 / 64; Pulse 68; Pulse Ox 100% on R/A; tm6 05:21 BP 111 / 61; Pulse 50; Resp 12; Pulse Ox 98% on R/A; tm6 06:00 BP 107 / 64; Pulse 52; Resp 12; Temp 97.3(TE); Pulse Ox 98% on R/A; tm6 06:00 Pain 0/10; tm6 06/09 23:25 Body Mass Index 29.29 (68.04 kg, 152.4 cm) vc1 06/09 23:25 Pain Scale: Adult vc1 06:00 Pain Scale: Adult tm6 ED Course: 06/09 23:24 Patient arrived in ED. jj6 23:25 Arm band placed on left wrist. vc1 23:25 Patient has correct armband on for positive identification. Placed in gown. Bed in low vc1 position. Call light in reach. engine monitor on. Pulse ox on. NIBP on. 23:42 Leeanne Cortes FNP-C [facility]. kb 23:42 Orville Dillard MD is Attending Physician. kb 23:48 Inserted saline lock: 20 gauge in right antecubital area, using aseptic technique. pm6 Blood collected. 23:50 Initial lab(s) drawn, by ED staff, EKG done, by ED staff, reviewed by Leeanne Cortes tm6 AMITA. 23:53 Triage completed. vc1 23:54 Soham Perez, ANNA is Primary Nurse. tm6 06/10 00:08 O2 via room air. tm6 00:08 Provided Education on: plan of care. Client placed on continuous cardiac and pulse tm6 oximetry monitoring. NIBP monitoring applied. Door closed. Noise minimized. Lights dimmed. Warm blanket given. 00:14 XRAY Chest (1 view) In Process Unspecified. EDMS 00:43 CT Head Brain wo Cont In Process Unspecified. EDMS 00:57 CT Chest For PE Angio In Process Unspecified. EDMS 05:47 No provider procedures requiring assistance completed. km8 06:01 IV discontinued, intact, bleeding controlled, No redness/swelling at site. Pressure tm6 dressing applied. Administered Medications: 01:10 Drug: morphine IVP or IV 4 mg IVP once over 4 mins Route: IVP; Infused Over: 4 mins; tm6 Site: right antecubital; 02:00 Follow up: Response: No adverse reaction km8 01:10 Drug: Ondansetron IVP 4 mg IVP once; over 2 minutes Route: IVP; Site: right antecubital;tm6 02:00 Follow up: Response: No adverse reaction km8 05:46 Drug: Diazepam PO 5 mg PO once Route: PO; km8 05:46 Drug: Ibuprofen PO 800 mg PO once Route: PO; km8 Medication: 06/09 23:58 VIS not applicable for this client. vc1 Outcome: 06/10 05:46 Discharge ordered by . sp4 06:00 Discharged to home ambulatory, with family, tm6 06:00 Condition: stable 06:00 Discharge instructions given to patient, Instructed on discharge instructions, follow up and referral plans. medication usage, Demonstrated understanding of instructions, follow-up care, medications, Prescriptions given X 2, 06:01 Patient left the ED. tm6 Signatures: Dispatcher [employer] EDMS Leeanne Cortes, AMITA CANO-Anne Chavez jj6 Belen Henry RN RN vc1 Orville Dillard MD MD sp4 Lidya Walsh RN RN km8 Soham Perez RN RN tm6 Mojgan Armendariz pm6
--- NOTE | 2023-06-11 05:47 | EDPHYS ---
Physician Documentation [facility] [place] [facility] Name: Sobia Ang Age: 48 yrs Sex: Female : 1975 Arrival Date: 06/10/2023 Time: 23:23 Bed 16 Private MD: ED Physician Orville Dillard HPI: 06/10 00:35 This 48 yrs old Female presents to ER via Ambulatory with complaints of Chest kb Pain, LEFT SIDE TINGLING/NUMBNESS/PAIN, Headache. 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 States she feels pain in left chest with intermittent stabbing pain. Reports numbness to left arm and leg. Reports shortness of breath. Denies nausea, vomiting, headache. 05:33 Allergies: Aspirin; PMHx: Asthma; Bipolar disorder; Schizophrenia; Skin Condition PSHx: sp4 Ligation of fallopian tube; tubes in Ears; . 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 Flu vaccine is not up to date. - Infectious Disease History:: Denies. - Social history:: Smoking status: Patient denies any tobacco usage or history of. Patient uses street drugs, marijuana. - Family history:: not pertinent. ROS: 06/10 00:35 Constitutional: As per HPI kb Exam: 00:35 Constitutional: This is a well developed, well nourished patient who is awake, alert, kb and in no acute distress. Head/Face: Normocephalic, atraumatic. ENT: Moist Mucous membranes Cardiovascular: Regular rate Respiratory: Respirations even and unlabored. No increased work of breathing. Talking in full sentences Abdomen/GI: Soft, non-tender. No distention Skin: Warm, dry with normal turgor. Normal color. MS/ Extremity: Pulses equal, no cyanosis. Neurovascular intact. Full, normal range of motion. Neuro: Awake and alert, GCS 15, oriented to person, place, time, and situation. Moves all extremities. Normal gait. 05:35 ECG was reviewed by the Attending Physician. EKG at 0105 reveals sinus bradycardia at sp4 the rate of 59, otherwise normal EKG Vital Signs: 06/09 23:25 BP 130 / 70; Pulse 60; Resp 15; Temp 98.6; Pulse Ox 100% ; Weight 68.04 kg; Height 5 vc1 ft. 0 in. ; Pain 9/10; 23:47 BP 147 / 102; Pulse 70; Resp 18; Pulse Ox 100% ; pm6 06/10 01:48 BP 124 / 68; Pulse 58; Pulse Ox 99% on R/A; tm6 03:01 BP 122 / 64; Pulse 68; Pulse Ox 100% on R/A; tm6 05:21 BP 111 / 61; Pulse 50; Resp 12; Pulse Ox 98% on R/A; tm6 06:00 BP 107 / 64; Pulse 52; Resp 12; Temp 97.3(TE); Pulse Ox 98% on R/A; tm6 06:00 Pain 0/10; tm6 06/09 23:25 Body Mass Index 29.29 (68.04 kg, 152.4 cm) vc1 06/09 23:25 Pain Scale: Adult vc1 06:00 Pain Scale: Adult tm6 MDM: 06/09 23:39 Patient medically screened. kb 06/10 00:35 Differential diagnosis: Arrhythmia, PE, acute WI, CVA, TIA. Data reviewed: vital signs, kb nurses notes. Management of patient was discussed with the following: dr Dillard who evaluated pt as well.. Transition of care: After a detail discussion of the patient's case, care is transferred to Orville Dillard MD. 05:34 Differential diagnosis: acute myocardial infarction, acute pericarditis, anxiety, sp4 coronary artery disease chest wall pain, congestive heart failure cholecystitis. HEART Score: History: Slightly Suspicious (0), ECG: Normal (0), Age: > 45 and < 65 years (1), Risk Factors: 1 or 2 risk factors (1), Troponin: < or = 1 x Normal Limit (0), Total Score = 2. The patient was given aspirin in the Emergency Department. 05:35 The patient was not given aspirin in the Emergency Department. Aspirin not given, sp4 patient refused. ED course: PROCEDURE: CTAngiography Chest With Intravenous Contrast CLINICAL INDICATION: The patient is 48 years old and is Female; CHEST PAIN TECHNIQUE: Axial computed tomographic angiography images of the chest with intravenous contrast. This CT exam was performed using one or more of the following dose reduction techniques: automated exposure control, adjustment of the mA and/or kV according to patient size, and/or use of iterative reconstruction technique. MIP reconstructed images were created and reviewed. Oblique reformatted images were created and reviewed. DLP: 391 mGy*cm COMPARISON: Chest radiograph of the same day. FINDINGS: PULMONARYARTERIES: Unremarkable. No pulmonary embolism. AORTA: No acute findings. No thoracic aortic aneurysm. LUNGS: Unremarkable. No mass. No consolidation. PLEURAL SPACE: Unremarkable. No significant effusion. No pneumothorax. HEART: Unremarkable. No cardiomegaly. No significant pericardial effusion. No evidence of RV dysfunction. BONES/JOINTS: No acute fracture. No dislocation. SOFT TISSUES: Unremarkable. LYMPH NODES: Unremarkable. No enlarged lymph nodes. IMPRESSION: Normal CTA chest. . ED course: EXAM: CT Head Without Intravenous Contrast CLINICAL HISTORY: The patient is 48 years old and is Female; NUMBNESS TECHNIQUE: Axial computed tomography images of the head/brain without intravenous contrast. Sagittal and coronal reformatted images were created and reviewed. This CT exam was performed using one or more of the following dose reduction techniques: automated exposure control, adjustment of the mA and/or kV according to patient size, and/or use of iterative reconstruction technique. COMPARISON: No relevant prior studies available. FINDINGS: Brain: Arachnoid cyst in the left posterior fossa. No hemorrhage. No significant white matter disease. Ventricles: Unremarkable. No ventriculomegaly. Bones/joints: Unremarkable. No acute fracture. Soft tissues: Unremarkable. Sinuses: Unremarkable as visualized. Mastoid air cells: Unremarkable as visualized. No mastoid effusion. IMPRESSION: No acute intracranial abnormality. . ED course: EXAMINATION: XR CHEST 1 VIEW INDICATION: Female, 48 years old, CHEST PAIN TECHNIQUE: 1 view COMPARISON(S): None available FINDINGS: SUPPORT DEVICES: Overlying leads. LUNGS/PLEURA: No consolidation, pleural effusion, or pneumothorax. HEART/MEDIASTINUM: Upper normal heart size. Pulmonary vasculature appears within normal limits. OTHER: No acute osseous findings. IMPRESSION: No acute cardiopulmonary findings.. 05:45 ED course: Will plan for discharge home. sp4 06/09 23:52 Order name: Basic Metabolic Panel; Complete Time: 00:29 kb 06/09 23:52 Order name: CBC with Diff; Complete Time: 00:18 kb 06/09 23:52 Order name: D-Dimer; Complete Time: 00:29 kb 06/09 23:52 Order name: Magnesium; Complete Time: 00:29 kb 06/09 23:52 Order name: PT-INR; Complete Time: 00:29 kb 06/09 23:52 Order name: Troponin HS; Complete Time: 00:29 kb 06/10 04:12 Order name: Troponin High Sensitivity; Complete Time: 05:33 sp4 06/09 23:52 Order name: XRAY Chest (1 view) kb 06/09 23:52 Order name: CT Head Brain wo Cont kb 06/10 00:30 Order name: CT Chest For PE Angio kb 06/09 23:52 Order name: EKG; Complete Time: 23:53 kb 06/10 00:32 Order name: EKG; Complete Time: 00:32 kb 06/09 23:52 Order name: Cardiac monitoring; Complete Time: 23:53 kb 06/09 23:52 Order name: EKG - Nurse/Tech; Complete Time: 23:53 kb 06/09 23:52 Order name: IV Saline Lock; Complete Time: 23:53 kb 06/09 23:52 Order name: Labs collected and sent; Complete Time: 23:53 kb 06/09 23:52 Order name: O2 Per Protocol; Complete Time: 23:54 kb 06/09 23:52 Order name: O2 Sat Monitoring; Complete Time: 23:54 kb 06/10 00:32 Order name: EKG - Nurse/Tech; Complete Time: 00:41 kb EC:35 Rate is 59 beats/min. Rhythm is regular, Normal Sinus Rhythm. QRS [place] is Normal. IA sp4 interval is normal. QRS interval is normal. QT interval is normal. No Q waves. T waves are Normal. No ST changes noted. Clinical impression: Normal ECG. Interpreted by me. Administered Medications: 01:10 Drug: morphine IVP or IV 4 mg IVP once over 4 mins Route: IVP; Infused Over: 4 mins; tm6 Site: right antecubital; 02:00 Follow up: Response: No adverse reaction 01:10 Drug: Ondansetron IVP 4 mg IVP once; over 2 minutes Route: IVP; Site: right antecubital;tm6 02:00 Follow up: Response: No adverse reaction 05:46 Drug: Diazepam PO 5 mg PO once Route: PO; 05:46 Drug: Ibuprofen PO 800 mg PO once Route: PO; 8 Disposition: 04:24 Co-signature as Attending Physician, Orville Dillard MD I agree with the assessment sp4 and plan of care. I reviewed the patient's care provided by Advanced Practice Provider \T\ agree w/ the diagnosis \T\ care plan. I personally saw the pt \T\ performed a substantive portion of the visit, incldng all aspects of the (History/Exam/Medical Decision Making). Disposition Summary: 06/11/23 05:46 Discharge Ordered Notes: Location: Home sp4 Problem: new sp4 Symptoms: have improved sp4 Condition: Stable sp4 Diagnosis - Chest pain, unspecified sp4 - Tension-type headache sp4 Followup: sp4 - With: Private Physician - When: 7 - 10 days - Reason: Recheck today's complaints Discharge Instructions: - Discharge Summary Sheet sp4 - Nonspecific Chest Pain, Adult, [id number] sp4 Forms: - Work release form tm6 Prescriptions: - meloxicam 15 mg Oral tablet - take 1 tablet ORAL route daily PRN pain; 30 tablet; Refills: 0, Product sp4 Selection Permitted - methocarbamol 750 mg Oral tablet - take 2 tablets ORAL route every 8 hours for 2 days PRN pain; 40 tablet; sp4 Refills: 0, Product Selection Permitted Signatures: Dispatcher [employer] EDMS Leeanne Cortes, JEROME-Amalia CANO-Belen Mathews RN RN vc1 Orville Dillard MD MD sp4 Lidya Walsh RN RN km8 Soham Perez RN RN tm6 Corrections: (The following items were deleted from the chart) 06/09 23:53 23:53 BASIC METABOLIC PANEL+C.LAB.BRZ ordered. EDMS EDMS 23:53 23:53 CBC+H.LAB.BRZ ordered. EDMS EDMS 23:53 23:53 D-DIMER+COAG.LAB.BRZ ordered. EDMS EDMS 23:53 23:53 MAGNESIUM+C.LAB.BRZ ordered. EDMS EDMS 53 23:53 PROTIME (+INR)+COAG.LAB.BRZ ordered. EDMS EDMS 23:53 Troponin High Sensitivity+C.LAB.BRZ ordered. EDMS EDMS 06/10 00:31 00:31 Chest For PE Angio+CT.RAD.BRZ ordered. EDMS EDMS 04: 04:12 Troponin High Sensitivity+C.LAB.BRZ ordered. EDMS EDMS
[2023-06-11 06:26] VITALS: BP 107/64; TEMP 97.3; O2SAT 98
--- NOTE | 2023-06-11 12:08 | RAD REPORT ---
EXAM DESCRIPTION: CT - Chest For Pe Angio - 06/11/2023 6:08 am CLINICAL HISTORY: The patient is 48 years old and is Female; CHEST PAIN TECHNIQUE: Axial computed tomographic angiography images of the chest with intravenous contrast. T his CT exam was performed using one or more of the following dose reduction techniques: automated e xposure control, adjustment of the mA and/or kV according to patient size, and/or use of iterative re construction technique. MIP reconstructed images were created and reviewed. Oblique reformatted images were created and reviewed. DLP: 391 mGy*cm COMPARISON: Chest radiograph of the same day. FINDINGS: PULMONARY ARTERIES: Unremarkable. No pulmonary embolism. AORTA: No acute findings. No thoracic aortic aneurysm. LUNGS: Unremarkable. No mass. No consolidation. PLEURAL SPACE: Unremarkable. No significant effusion. No pneumothorax. HEART: Unremarkable. No cardiomegaly. No significant pericardial effusion. No evidence of RV dysfunction. BONES/JOINTS: No acute fracture. No dislocation. SOFT TISSUES: Unremarkable. LYMPH NODES: Unremarkable. No enlarged lymph nodes. IMPRESSION: Normal CTA chest. Electronically signed by: Christopher Rosario DO 06/11/2023 01:10 AM CDT Due to temporary technical issues with the PACS/Fluency reporting system, reports are being signed by the in house radiologist without review as a courtesy to ensure prompt reporting. The interpreting r adiologist is fully responsible for the content of the report.
--- NOTE | 2023-06-11 12:16 | RAD REPORT ---
EXAM DESCRIPTION: CT - Head Brain Wo Cont - 06/11/2023 6:07 am CLINICAL HISTORY: The patient is 48 years old and is Female; NUMBNESS TECHNIQUE: Axial computed tomography images of the head/brain without intravenous contrast. Sagitt al and coronal reformatted images were created and reviewed. This CT exam was performed using one o r more of the following dose reduction techniques: automated exposure control, adjustment of the mA and/or kV according to patient size, and/or use of iterative reconstruction technique. COMPARISON: No relevant prior studies available. FINDINGS: Brain: Arachnoid cyst in the left posterior fossa. No hemorrhage. No significant white matter disease. Ventricles: Unremarkable. No ventriculomegaly. Bones/joints: Unremarkable. No acute fracture. Soft tissues: Unremarkable. Sinuses: Unremarkable as visualized. Mastoid air cells: Unremarkable as visualized. No mastoid effusion. IMPRESSION: No acute intracranial abnormality. Electronically signed by: Alber Wallace MD 06/11/2023 12:57 AM CDT Due to temporary technical issues with the PACS/Fluency reporting system, reports are being signed by the in house radiologist without review as a courtesy to ensure prompt reporting. The interpreting r adiologist is fully responsible for the content of the report.
--- NOTE | 2023-06-11 12:21 | RAD REPORT ---
EXAM DESCRIPTION: RAD - Chest Single View - 06/11/2023 12:12 am CLINICAL HISTORY: Female, 48 years old, CHEST PAIN TECHNIQUE: 1 view COMPARISON: None available FINDINGS: SUPPORT DEVICES: Overlying leads. LUNGS/PLEURA: No consolidation, pleural effusion, or pneumothorax. HEART/MEDIASTINUM: Upper normal heart size. Pulmonary vasculature appears within normal limits. OTHER: No acute osseous findings. IMPRESSION: No acute cardiopulmonary findings. Electronically signed by: Abdirahman Ch MD 06/11/2023 12:27 AM CDT Due to temporary technical issues with the PACS/Fluency reporting system, reports are being signed by the in house radiologist without review as a courtesy to ensure prompt reporting. The interpreting r adiologist is fully responsible for the content of the report.
== END 2023-06-11 06:01 | disposition home or self-care (01) ==
LOC: ER 23:23
DX: R07.9 Chest pain, unspecified (principal); G44.209 Tension-type headache, unspecified, not intractable
CPT/HCPCS: 36415; 70450; 71045; 71275; 80048; 83735; 84484; 85025; 85379; 85610; 93005; 96374; 96375; 99285; J2405; Q9967

== ENCOUNTER 2023-08-04 17:08 | Emergency (ER) | payer OTHER ==
--- OUTSIDE RECORDS SUMMARY | 2023-08-04 17:10 | XMS REPORT | Continuity of Care Document ---
Author Name Unknown Address [address] [facility] [address] [place] [address] [facility] thconnect Address [address] [facility] [place] [address] Care Team Providers Care Filter Press Supervisor Name Role Phone [facility], [facility] Care Physician REE AHN Attending Clinician Ree Ribera MD Attending Clinician [phone] Doctor Unassigned, [place] Attending Clinician U navailable Problems Condition Name Condition Details Condition Category Status Onset Date Resolution Date Last Treatment Date Treating Clinician Comments Source Supervisio n of other normal Supervisio n of other normal Disease Active 11-06 00:00: 00 [facility] Lump or mass in breast Lump or mass in breast Disease Active 09-20 00:00: 00 [facility] care and examinatio n immediatel y after delivery care and examinatio n immediatel y after delivery Disease Active 10-25 00:00: 00 [facility] Normal delivery Normal delivery Disease Active 10-25 00:00: 00 [facility] Allergies, Adverse Reactions, Alerts Allergy Name Allergy Type Status Severity Reaction(s) Onset Date Inactive Date Treating Clinician Comments Source SEAFOOD/ FISH Food Active Med Hives 07-14 00:00: 00 [facility] Seafood/ Fish Food Allergy Active Hives 07-14 00:00: 00 Mercedes [facility] ASPIRIN DRUG INGREDI Active Hives 10-25 00:00: 00 [facility] Aspirin Propensi ty to adverse reaction s Active Hives 10-25 00:00: 00 [facility] Social History Social Habit Start Date Stop Date Quantity Comments Source Exposure to SARS-CoV-2 (event) 2021-12-22 00:00:00 2022-01-01 09:54:00 Not sure [facility] Alcohol intake 2018-07-25 00:00:00 2018-07-25 00:00:00 Current non-drinker of alcohol (finding) [facility] Sex Assigned At 1975 00:00:00 1975 00:00:00 [facility] Smoking Status Start Date Stop Date Source Never smoked tobacco [facility] Medications Ordered Medication Name Filled Medication Name Start Date Stop Date Current Medication? Ordering Clinician Indication Dosage Frequency Signature (SIG) Comments Components Source azithromyci n 250 mg tablet 2021-02 00:00: 00 Yes [id number] 250mg Take 1 tablet by mouth SEE-INSTRU CTIONS. Take 500 mg day 1, then 250 mg days 2 to 5. [facility] acetaminoph en-codeine (TYLENOL-CO DEINE #3) 300-30 mg tablet 07-25 00:00: 00 Yes [id number] 1{tbl} Take 1 tablet by mouth every 4 (four) hours as needed for Pain (scale 7-10). [facility] ondansetron 4 mg disintegrat ing tablet 07-25 00:00: 00 Yes [id number] 4mg Take 1 tablet by mouth every 8 (eight) hours as needed for Nausea and Vomiting (N/V). [facility] triamcinolo ne 0.5 % ointment 09-02 09:47: 05 Yes Apply to area(s) 2 (two) times daily. [facility] Vital Signs Vital Name Observation Time Observation Value Comments S our Systolic blood pressure 2022-01-01 15:54:00 131 mm[Hg] [place] [facility] Diastolic blood pressure 2022-01-01 15:54:00 84 mm[Hg] [facility] Heart rate 2022-01-01 15:54:00 90 /min [facility] Body temperature 2022-01-01 15:54:00 36.61 [facility] Respiratory rate 2022-01-01 15:54:00 20 /min [facility] Body weight 2022-01-01 15:54:00 63.504 kg [facility] BMI 2022-01-01 15:54:00 27.34 kg/m2 [facility] Oxygen saturation in Arterial blood by Pulse oximetry 2022-01-01 15:54:00 98 /min [place] [facility] Procedures Procedure Date / Time Performed Performing Clinicia n Source RAPID INFLUENZA A/B 2022-01-01 16:04:00 Ree Ahn [facility] COVID-19 (ID NOW RAPID TESTING) 2022-01-01 16:04:00 Ree Ahn [facility] NOTICE OF PRIVACY PRACTICES 2022-01-01 15:45:21 Doctor Unassigned, [place] [facility] CONSENT/REFUSAL FOR DIAGNOSIS AND TREATMENT 2022-01-01 15:45:05 Doctor Unassigned, [place] [facility] Encounters Start Date/Time End Date/Time Encounter Type Admission Type Attending Clinicians Care Facility Care Department Encounter ID Source 2023-07-02 10:37:41 2023-07-02 10:37:41 Outpatient SFA [id number] [id number] Conner Mims 2022-11-02 17:01:22 2022-11-02 17:01:22 Outpatient SFA [id number] [id number] Conner Ball Prasanna 2022-01-01 09:56:00 2022-01-01 11:11:00 Emergency X REE AHN [facility] ERT [id number] [facility] 2022-01-01 09:56:00 2022-01-01 11:11:00 Emergency Ree Ahn [facility] [id number] [facility] 2022-01-01 00:00:00 2022-01-01 00:00:00 Orders Only Doctor Unassigned, [place] [facility] [id number] [facility] Results Test Description Test Time Test Comments Results Resul t Comments Source SCR MAMM BILATERAL CAD DIGITAL 2017-12-25 15:48:19 - SCR MAMM BILATERAL CAD DIGITALBILATERAL FIRST EVER DIGITAL SCREENING MAMMOGRAM WITH CAD: 12/19/2017CLINICAL: Asymptomatic. Current mammographic images were evaluated by either a [employer] M-Vu or a [employer] ImageCheCyberFlow Analyticser CAD (computer aided detection system). No prior [...] prominent lymph nodes.Esme Chiang M.D. el/:12/25/2017 15:48:19 Centrifuge Separator Operator: Jesusita Giron MM, [facility] Mammographyletter sent: Additional Imaging Mammogram BI-RADS: 0 Indeterminate
[2023-08-04] MEDS ORDERED: HYDROCODONE/APAP 7.5/325 MG TAB ONE (17:42)
[2023-08-04] MEDS ORDERED: DOXYCYCLINE 100 MG CAP PO ONE (17:42)
[2023-08-04] MEDS ORDERED: dexAMETHasone 10 MG/ML VIAL ONE (17:42)
--- NOTE | 2023-08-04 17:46 | EDPHYS ---
Physician Documentation [facility] Name: Sobia Ang Age: 48 yrs Sex: Female : 1975 Arrival Date: 08/04/2023 Time: 17:08 Bed 20 Private MD: ED Physician John Gordon HPI: 08/03 17:32 This 48 yrs old Female presents to ER via Ambulatory with complaints of Hives. kb 19:26 Pt is a 48 year old female who presents for rash that started 3 days ago. Reports some kb areas are painful and it has spread to entire body. Reports subjective fever on first day. Denies cough, congestion, sore throat, itching. . 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 - Infectious Disease History:: Denies. - Social history:: Smoking status: Reported history of juuling and/or vaping. ROS: 17:31 Constitutional: As per HPI kb Exam: 17:31 Constitutional: This is a well developed, well nourished patient who is awake, alert, kb and in no acute distress. Head/Face: Normocephalic, atraumatic. ENT: Moist Mucous membranes Cardiovascular: Regular rate Respiratory: Respirations even and unlabored. No increased work of breathing. Talking in full sentences Abdomen/GI: Soft, non-tender. No distention MS/ Extremity: Pulses equal, no cyanosis. Neurovascular intact. Full, normal range of motion. Neuro: Awake and alert, GCS 15, oriented to person, place, time, and situation. Moves all extremities. Normal gait. 17:31 Skin: diffuse rash noted, some areas of excoriation and erythema. No abscess, cellulitis appreciated, Vital Signs: 17:24 BP 118 / 69; Pulse 78; Resp 18; Temp 98.4; Pulse Ox 100% on R/A; Weight 68.04 kg; ph Height 5 ft. 2 in. ; 17:48 BP 126 / 68; Pulse 78; Resp 16; Pulse Ox 100% on R/A; me1 17:24 Body Mass Index 27.44 (68.04 kg, 157.48 cm) ph MDM: 17:14 Patient medically screened. kb 19:25 Differential diagnosis: urticaria, scabies, rash. Data reviewed: vital signs, nurses kb notes. Counseling: I had a detailed discussion with the patient and/or guardian regarding the historical points, exam findings, and any diagnostic results supporting the discharge/admit diagnosis, the need for outpatient follow up, a family practitioner, to return to the emergency department if symptoms worsen or persist or if there are any questions or concerns that arise at home. Administered Medications: 17:47 Drug: Doxycycline PO 100 mg PO once Route: PO; me1 18:05 Follow up: Response: No adverse reaction me1 17:47 Drug: Dexamethasone IM 10 mg IM once Route: IM; Site: right deltoid; me1 18:05 Follow up: Response: No adverse reaction me1 17:47 Drug: Hydrocodone-Acetaminophen PO (7.5 mg-325 mg) 1 tabs PO once Route: PO; me1 18:04 Follow up: Response: No adverse reaction; Pain is decreased me1 Disposition Summary: 08/04/23 17:45 Discharge Ordered Notes: Location: Home kb Condition: Stable kb Diagnosis - Rash and other nonspecific skin eruption kb Followup: kb - With: Emergency Department - When: As needed - Reason: Worsening of condition Followup: kb - With: Private Physician - When: 2 - 3 days - Reason: Recheck today's complaints, Continuance of care, Re-evaluation by your physician Discharge Instructions: - Discharge Summary Sheet kb - Rash, Adult, [id number] kb Forms: - Medication Reconciliation Form kb - Antibiotic Education kb - Prescription Opioid Use kb - Patient Portal Instructions kb - Leadership Thank You Letter kb - Work release form me1 Prescriptions: - mupirocin 2 % Topical ointment - apply 1 application TOPICAL route 3 times per day; 1 unit; Refills: 0, Product kb Selection Permitted - Prednisone 20 mg Oral Tablet - take 1 tablet ORAL route once daily for 5 days; 5 tablet; Refills: 0, Product kb Selection Permitted - Doxycycline Hyclate 100 mg Oral Tablet - take 1 tablet ORAL route every 12 hours; 20 tablet; Refills: 0, Product kb Selection Permitted Addendum: 08/07/2023 14:13 I was immediately available for consultation during this patient's visit. I did not e c2 personally see the patient or discuss the patient with the LIBERTAD. . Signatures: Leeanne Cortes, Maya Fernández RN RN Judie Scott RN RN me1 John Gordon MD MD ec2
--- NOTE | 2023-08-04 17:46 | ER ---
Nurse's Notes [facility] Name: Sobia Ang Age: 48 yrs Sex: Female : 1975 Arrival Date: 08/04/2023 Time: 17:08 Bed 20 Private MD: Diagnosis: Rash and other nonspecific skin eruption Presentation: 08/03 17:24 Chief complaint: Patient states: Rash/hives to entire body, denies difficulty ph breathing. Coronavirus screen: Vaccine status: Patient reports receiving the 2nd dose of the covid vaccine. Ebola Screen: No symptoms or risks identified at this time. Onset: The symptoms/episode began/occurred yesterday. Anaphylaxis evaluation, no signs or symptoms of anaphylaxis were noted. Initial Sepsis Screen: Does the patient meet any 2 criteria? No. Patient's initial sepsis screen is negative. Does the patient have a suspected source of infection? No. Patient's initial sepsis screen is negative. Risk Assessment: Do you want to hurt yourself or someone else? Patient reports no desire to harm self or others. Onset of symptoms was August 04, 2023. 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 - Infectious Disease History:: Denies. - Social history:: Smoking status: Reported history of juuling and/or vaping. Screenin:29 [facility] ED Fall Risk Assessment (Adult) History of falling in the last 3 months, me1 including since admission No falls in past 3 months (0 pts) Confusion or Disorientation No (0 pts) Intoxicated or Sedated No (0 pts) Impaired Gait No (0 pts) Mobility Assist Device Used No (0 pt) Altered Elimination No (0 pt) Score/Fall Risk Level 0 - 2 = Low Risk Maintained a safe environment, Provided non-skid footwear, Hourly rounding (assess needs \T\ fall precautionary measures) done. Abuse screen: Denies threats or abuse. Nutritional screening: No deficits noted. Tuberculosis screening: No symptoms or risk factors identified. Assessment: 17:29 General: Appears uncomfortable, unkempt, well developed, well nourished, Behavior is me1 calm, cooperative, appropriate for age, Reports hives to entire body, started 3 days ago. Denies difficulty breathing. States the hives hurt, denies itching. Pain: Complains of pain in generalized Pain does not radiate. Pain currently is 9 out of 10 on a pain scale. Quality of pain is described as pressure, Pain began gradually, 2-3 days ago. Is continuous. Neuro: Level of Consciousness is awake, alert, obeys commands, Oriented to person, place, time, situation, Appropriate for age. Cardiovascular: Patient's skin is warm and dry. Respiratory: Airway is patent Respiratory effort is even, unlabored, Respiratory pattern is regular, symmetrical, Breath sounds are clear bilaterally. GI: No signs and/or symptoms were reported involving the gastrointestinal system. : No signs and/or symptoms were reported regarding the genitourinary system. EENT: No signs and/or symptoms were reported regarding the EENT system. Derm: Rash noted that is nonspecific diffuse rash. Musculoskeletal: No signs and/or symptoms reported regarding the musculoskeletal system. Vital Signs: 17:24 BP 118 / 69; Pulse 78; Resp 18; Temp 98.4; Pulse Ox 100% on R/A; Weight 68.04 kg; ph Height 5 ft. 2 in. ; 17:48 BP 126 / 68; Pulse 78; Resp 16; Pulse Ox 100% on R/A; me1 17:24 Body Mass Index 27.44 (68.04 kg, 157.48 cm) ph ED Course: 17:11 Patient arrived in ED. rg4 17:11 Leeanne Cortes FNP-C [facility]. mb9 17:14 John Gordon MD is Attending Physician. kb 17:24 Judie Sctot, ANNA is Primary Nurse. me1 17:25 Triage completed. ph 17:25 Arm band placed on Patient placed in an exam room. ph 17:29 Patient has correct armband on for positive identification. Bed in low position. Call me1 light in reach. Side rails up X2. Provided Education on: POC. Verbalized understanding. . Client placed on continuous cardiac and pulse oximetry monitoring. NIBP monitoring applied. Pulse ox on. NIBP on. 17:29 No provider procedures requiring assistance completed. me1 17:48 Patient did not have IV access during this emergency room visit. me1 Administered Medications: 17:47 Drug: Doxycycline PO 100 mg PO once Route: PO; me1 18:05 Follow up: Response: No adverse reaction me1 17:47 Drug: Dexamethasone IM 10 mg IM once Route: IM; Site: right deltoid; me1 18:05 Follow up: Response: No adverse reaction me1 17:47 Drug: Hydrocodone-Acetaminophen PO (7.5 mg-325 mg) 1 tabs PO once Route: PO; me1 18:04 Follow up: Response: No adverse reaction; Pain is decreased me1 Medication: 17:29 VIS not applicable for this client. me1 Outcome: 17:45 Discharge ordered by . kb 18:08 Discharged to home ambulatory, with family, me1 18:08 Condition: stable 18:08 Discharge instructions given to patient, family, Instructed on discharge instructions, follow up and referral plans. medication usage, Demonstrated understanding of instructions, follow-up care, medications, Prescriptions given X 1, 18:09 Patient left the ED. me1 Signatures: Leeanne Cortes, REPRESENTATIVE PHLEBOTOMY SERVICES-C REPRESENTATIVE PHLEBOTOMY SERVICES-Maya Ordaz, RN RN Karla Dill rg4 Talita Eddy, RN RN mb9 Judie Scott RN RN me1
[2023-08-04 18:18] VITALS: BP 126/68; TEMP 98.4; O2SAT 100
== END 2023-08-04 18:09 | disposition home or self-care (01) ==
LOC: ER 17:08
DX: R21 Rash and other nonspecific skin eruption (principal)
CPT/HCPCS: 96372; 99284; J1100

== ENCOUNTER 2023-10-28 14:01 | Emergency (ER) | payer OTHER ==
--- OUTSIDE RECORDS SUMMARY | 2023-10-28 14:05 | XMS REPORT | Continuity of Care Document ---
Author Name Unknown Address [address] [facility] [address] [place] [address] [facility] thconnect Address [address] [facility] [address] [place] [address] Care Team Providers Care Case Liner Name Role Phone [facility] Care Physician REE AHN Attending Clinician Ree Ribera MD Attending Clinician Doctor Unassigned, [place] Attending Clinician U navailable Problems Condition Name Condition Details Condition Category Status Onset Date Resolution Date Last Treatment Date Treating Clinician Comments Source Supervisio n of other normal Supervisio n of other normal Disease Active 11-06 00:00: 00 [facility] Lump or mass in breast Lump or mass in breast Disease Active 09-20 00:00: 00 [facility] care and examinatio n immediatel y after delivery care and examinatio n immediatel y after delivery Disease Active 10-25 00:00: 00 [facility] Normal delivery Normal delivery Disease Active 10-25 00:00: 00 [facility] Allergies, Adverse Reactions, Alerts Allergy Name Allergy Type Status Severity Reaction(s) Onset Date Inactive Date Treating Clinician Comments Source SEAFOOD/ FISH Food Active Med Hives 07-14 00:00: 00 [facility] Seafood/ Fish Food Allergy Active Hives 07-14 00:00: 00 Crawfish [facility] ASPIRIN DRUG INGREDI Active Hives 10-25 00:00: 00 [facility] Aspirin Propensi ty to adverse reaction s Active Hives 10-25 00:00: 00 [facility] Social History Social Habit Start Date Stop Date Quantity Comments Source Exposure to SARS-CoV-2 (event) 2021-12-22 00:00:00 2022-01-01 09:54:00 Not sure [facility] Alcohol intake 2018-07-25 00:00:00 2018-07-25 00:00:00 Current non-drinker of alcohol (finding) [facility] Sex Assigned At 1975 00:00:00 1975 00:00:00 [facility] Smoking Status Start Date Stop Date Source Never smoked tobacco [facility] Medications Ordered Medication Name Filled Medication Name Start Date Stop Date Current Medication? Ordering Clinician Indication Dosage Frequency Signature (SIG) Comments Components Source azithromyci n 250 mg tablet 2021-02 00:00: 00 Yes [id number] 250mg Take 1 tablet by mouth SEE-INSTRU CTIONS. Take 500 mg day 1, then 250 mg days 2 to 5. [facility] acetaminoph en-codeine (TYLENOL-CO DEINE #3) 300-30 mg tablet 07-25 00:00: 00 Yes [id number] 1{tbl} Take 1 tablet by mouth every 4 (four) hours as needed for Pain (scale 7-10). [facility] ondansetron 4 mg disintegrat ing tablet 07-25 00:00: 00 Yes [id number] 4mg Take 1 tablet by mouth every 8 (eight) hours as needed for Nausea and Vomiting (N/V). [facility] triamcinolo ne 0.5 % ointment 09-02 09:47: 05 Yes Apply to area(s) 2 (two) times daily. [facility] Vital Signs Vital Name Observation Time Observation Value Comments S our Systolic blood pressure 2022-01-01 15:54:00 131 mm[Hg] [place] [facility] Diastolic blood pressure 2022-01-01 15:54:00 84 mm[Hg] [place] [facility] Heart rate 2022-01-01 15:54:00 90 /min [facility] Body temperature 2022-01-01 15:54:00 36.61 [place] [facility] Respiratory rate 2022-01-01 15:54:00 20 /min [facility] Body weight 2022-01-01 15:54:00 63.504 kg [facility] BMI 2022-01-01 15:54:00 27.34 kg/m2 [facility] Oxygen saturation in Arterial blood by Pulse oximetry 2022-01-01 15:54:00 98 /min [place] [facility] Procedures Procedure Date / Time Performed Performing Clinicia n Source RAPID INFLUENZA A/B 2022-01-01 16:04:00 Ree Ahn [facility] COVID-19 (ID NOW RAPID TESTING) 2022-01-01 16:04:00 Ree Ahn [facility] NOTICE OF PRIVACY PRACTICES 2022-01-01 15:45:21 Doctor Unassigned, [place] [facility] CONSENT/REFUSAL FOR DIAGNOSIS AND TREATMENT 2022-01-01 15:45:05 Doctor Unassigned, [place] [facility] Encounters Start Date/Time End Date/Time Encounter Type Admission Type Attending Clinicians Care Facility Care Department Encounter ID Source 2023-07-02 10:37:41 2023-07-02 10:37:41 Outpatient SFA SFA [id number] Conner Mims 2022-11-02 17:01:22 2022-11-02 17:01:22 Outpatient SFA SFA [id number] Conner Ball Prasanna 2022-01-01 09:56:00 2022-01-01 11:11:00 Emergency X REE AHN [facility] ERT [id number] [facility] 2022-01-01 09:56:00 2022-01-01 11:11:00 Emergency Ree Ahn [facility] [id number] [facility] 2022-01-01 00:00:00 2022-01-01 00:00:00 Orders Only Doctor Unassigned, [place] [facility] [id number] [facility] Results Test Description Test Time Test Comments Results Resul t Comments Source SCR MAMM BILATERAL CAD DIGITAL 2017-12-25 15:48:19 - SCR MAMM BILATERAL CAD DIGITALBILATERAL FIRST EVER DIGITAL SCREENING MAMMOGRAM WITH CAD: 12/19/2017CLINICAL: Asymptomatic. Current mammographic images were evaluated by either a [employer] M-Vu or a [employer] CAD (computer aided detection system). No prior [...] prominent lymph nodes.Esme Chiang M.D. el/:12/25/2017 15:48:19 Clam Treader: Jesusita Giron MM, [facility] Mammographyletter sent: Additional Imaging Mammogram BI-RADS: 0 Indeterminate
[2023-10-28] MEDS ORDERED: LIDOCAINE 1% 20 ML MDV ONE (14:21)
[2023-10-28] MEDS ORDERED: HYDROCODONE/APAP 5/325 MG TAB ONE (14:21)
[2023-10-28] MEDS ORDERED: TDAP (DIPHTH,PERTUSS(ACELL),TET VAC) 0.5 ML VIAL IMVAC ONE (14:22)
--- NOTE | 2023-10-28 16:18 | ER ---
Nurse's Notes [facility] Name: Sobia Ang Age: 48 yrs Sex: Female : 1975 Arrival Date: 10/28/2023 Time: 14:01 Bed 17 Private MD: Diagnosis: Bitten by dog Presentation: 10/27 14:14 Chief complaint: Patient states: she was bitten multiple times by her personal dog. ap3 patient states PD was already notified they had picked up the dog. patient has puncture wounds to her right arm, left hand, right leg, right knee and left lower leg. Coronavirus screen: At this time, the client does not indicate any symptoms associated with coronavirus-19. Ebola Screen: No symptoms or risks identified at this time. Initial Sepsis Screen: Does the patient meet any 2 criteria? No. Patient's initial sepsis screen is negative. Does the patient have a suspected source of infection? No. Patient's initial sepsis screen is negative. Risk Assessment: Do you want to hurt yourself or someone else? Patient reports no desire to harm self or others. Onset of symptoms was October 28, 2023. 14:14 Method Of Arrival: EMS: [facility] ap3 14:14 Acuity: FRANCES 4 ap3 Triage Assessment: 14:16 General: Appears uncomfortable, Behavior is cooperative, crying. Pain: Complains of ap3 pain in left hand, right arm, right leg and left leg Pain began suddenly. Neuro: Level of Consciousness is awake, alert, obeys commands, Oriented to person, place, time, situation, Appropriate for age Gait is steady, Speech is normal. Cardiovascular: Patient's skin is warm and dry. Respiratory: Airway is patent Respiratory effort is even, unlabored, Respiratory pattern is regular, symmetrical. Derm: Wound noted left hand, right arm, right leg and left leg. 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 Last tetanus immunization: unknown. - Infectious Disease History:: Denies. - Social history:: Smoking status: Patient reports the use of cigarette tobacco products, Reported history of juuling and/or vaping. Screenin:17 [facility] ED Fall Risk Assessment (Adult) History of falling in the last 3 months, ap3 including since admission No falls in past 3 months (0 pts) Confusion or Disorientation No (0 pts) Intoxicated or Sedated No (0 pts) Impaired Gait No (0 pts) Mobility Assist Device Used No (0 pt) Altered Elimination No (0 pt) Score/Fall Risk Level 0 - 2 = Low Risk Oriented to surroundings, Maintained a safe environment, Educated pt \T\ family on fall prevention, incl call for assistance when getting out of bed, Assessed \T\ reinforced patient's understanding of fall precautions, Hourly rounding (assess needs \T\ fall precautionary measures) done, Used ambulatory aids as needed (educated on \T\ assisted with), Used gait belt as appropriate. Abuse screen: Denies threats or abuse. Nutritional screening: No deficits noted. Tuberculosis screening: No symptoms or risk factors identified. Vital Signs: 14:14 BP 133 / 94; Pulse 76; Resp 17; Temp 97.6(TE); Pulse Ox 100% ; Weight 68.04 kg; Height ap3 5 ft. 0 in. ; Pain 8/10; 14:14 Body Mass Index 29.29 (68.04 kg, 152.4 cm) ap3 14:14 Pain Scale: Adult ap3 ED Course: 14:14 Patient arrived in ED. ap3 14:15 Leeanne Cortes FNP-C is [facility]. kb 14:15 Boaz Arenas MD is Attending Physician. kb 14:16 Triage completed. ap3 14:17 Arm band placed on right wrist. ap3 14:17 Patient has correct armband on for positive identification. Placed in gown. Bed in low ap3 position. Call light in reach. Side rails up X 1. Provided Education on: fall risk education. Pulse ox on. NIBP on. 14:38 Rima Pichardo, RN is Primary Nurse. ap3 16:39 Dressings: Ricci x 2 right leg and left hand non-adherent dressing x 2 left leg and ap3 right leg and right arm and left hand. 16:40 No provider procedures requiring assistance completed. Patient did not have IV access ap3 during this emergency room visit. Administered Medications: 14:27 Drug: Boostrix Tdap IM 0.5 ml IM once; as a single dose Route: IM; Site: right deltoid; ap3 16:09 Follow up: Response: (VIS) Vaccine information sheet provided today. Questions and/or ap3 concerns addressed. VIS edition date: Sep 24, 2020.; No adverse reaction 14:27 Drug: HYDROcodone-acetaminophen PO 5 mg-325 mg 1 tabs PO once Route: PO; ap3 16:09 Follow up: Response: No adverse reaction; Pain is decreased ap3 16:09 Drug: Lidocaine Infiltration (1 %) 1 vials 20 ml Infiltration once; to bedside {Note: ap3 by JEROME sanchez.} Volume: 20 ml; Route: Infiltration; 16:39 Drug: Amoxicillin-Clavulanate PO 875 mg PO once Route: PO; ap3 16:39 Follow up: Response: Medication administered at discharge. ap3 Medication: 14:38 Vaccine Information Statement (VIS) provided today. Questions and/or concerns ap3 addressed. VIS edition date: September 24, 2020. Outcome: 16:18 Discharge ordered by . kb 16:40 Discharged to home ambulatory, ap3 16:40 Condition: good 16:40 Discharge instructions given to patient, Instructed on discharge instructions, follow up and referral plans. medication usage, Demonstrated understanding of instructions, follow-up care, medications, Prescriptions given X 1, 16:40 Patient left the ED. ap3 Signatures: Leeanne Cortes, JEROME-Amalia CANO-CkRima Mei RN RN ap3
--- NOTE | 2023-10-28 16:18 | EDPHYS ---
Physician Documentation [facility] Name: Sobia Ang Age: 48 yrs Sex: Female : 1975 Arrival Date: 10/28/2023 Time: 14:01 Bed 17 Private MD: ED Physician Boaz Arenas HPI: 10/27 16:17 This 48 yrs old Female presents to ER via EMS with complaints of Dog Bite. 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 kb Denies any bony tenderness. Superficial lacerations to right forearm, right thigh, left wrist and abrasion to abd. . 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 Last tetanus immunization: unknown. - Infectious Disease History:: Denies. - Social history:: Smoking status: Patient reports the use of cigarette tobacco products, Reported history of juuling and/or vaping. ROS: 16:14 Constitutional: As per HPI kb Exam: 16:13 Constitutional: This is a well developed, well nourished patient who is awake, alert, kb and in no acute distress. Head/Face: Normocephalic, atraumatic. ENT: Moist Mucous membranes Cardiovascular: Regular rate Respiratory: Respirations even and unlabored. No increased work of breathing. Talking in full sentences MS/ Extremity: Pulses equal, no cyanosis. Neurovascular intact. Full, normal range of motion. Neuro: Awake and alert, GCS 15, oriented to person, place, time, and situation. Moves all extremities. Normal gait. 16:13 Skin: superficial dog bites to left wrist x2, right forearm, right thigh x2 and abrasion to abd. Vital Signs: 14:14 BP 133 / 94; Pulse 76; Resp 17; Temp 97.6(TE); Pulse Ox 100% ; Weight 68.04 kg; Height ap3 5 ft. 0 in. ; Pain 8/10; 14:14 Body Mass Index 29.29 (68.04 kg, 152.4 cm) ap3 14:14 Pain Scale: Adult ap3 Laceration: 16:14 Wound Repair of 1.5cm ( 0.6in ) subcutaneous laceration to dorsal aspect of right kb forearm. Linear shaped.. Distal neuro/vascular/tendon intact. Anesthesia: Wound infiltrated with 1 mls of 1% lidocaine. Wound prep: Extensive cleansing with hibiclenz, Wound irrigation with saline. Skin closed with 1 5-0 Prolene using simple sutures and sterile technique. Patient tolerated well. 16:14 Wound Repair of 2cm ( 0.8in ) subcutaneous laceration to lateral aspect of right thigh. kb Linear shaped.. Distal neuro/vascular/tendon intact. Anesthesia: Wound infiltrated with 2 mls of 1% lidocaine. Wound prep: Extensive cleansing with hibiclenz, Wound irrigation with saline. Skin closed with 2 5-0 Prolene using simple sutures and sterile technique. Patient tolerated well. 16:14 Wound Repair of 1.5cm ( 0.6in ) subcutaneous laceration to lateral aspect of right kb thigh. Linear shaped.. Distal neuro/vascular/tendon intact. Anesthesia: Local anesthetic administered with 1.5 mls of 1% lidocaine. Wound prep: Extensive cleansing with hibiclenz, Wound irrigation with saline. Skin closed with 1 5-0 Prolene using simple sutures and sterile technique. Patient tolerated well. 16:14 Wound Repair of 1.5cm ( 0.6in ) subcutaneous laceration to left wrist. Linear shaped.. kb Distal neuro/vascular/tendon intact. Anesthesia: Local anesthetic administered with 2 mls of 1% lidocaine. Wound prep: Extensive cleansing with hibiclenz, Wound irrigation with saline. Skin closed with 2 5-0 Prolene using simple sutures and sterile technique. Patient tolerated well. MDM: 14:15 Patient medically screened. kb 16:16 Differential diagnosis: superficial laceration, tendon injury, vascular injury. Data kb reviewed: vital signs, nurses notes. Historians other than the Patient: EMS: [facility]. Counseling: I had a detailed discussion with the patient and/or guardian regarding the historical points, exam findings, and any diagnostic results supporting the discharge/admit diagnosis, the need for outpatient follow up, a family practitioner, to return to the emergency department if symptoms worsen or persist or if there are any questions or concerns that arise at home. 10/27 14:15 Order name: Dressing - Wound; Complete Time: 16:39 kb 10/27 14:15 Order name: Gloves, Sterile; Complete Time: 16:09 kb 10/27 14:15 Order name: Prolene, Sutures; Complete Time: 16:09 kb 10/27 14:15 Order name: Setup Suture Tray; Complete Time: 14:18 kb Administered Medications: 14:27 Drug: Boostrix Tdap IM 0.5 ml IM once; as a single dose Route: IM; Site: right deltoid; ap3 16:09 Follow up: Response: (VIS) Vaccine information sheet provided today. Questions and/or ap3 concerns addressed. VIS edition date: Sep 24, 2020.; No adverse reaction 14:27 Drug: HYDROcodone-acetaminophen PO 5 mg-325 mg 1 tabs PO once Route: PO; ap3 16:09 Follow up: Response: No adverse reaction; Pain is decreased ap3 16:09 Drug: Lidocaine Infiltration (1 %) 1 vials 20 ml Infiltration once; to bedside {Note: ap3 by JEROME sanchez.} Volume: 20 ml; Route: Infiltration; 16:39 Drug: Amoxicillin-Clavulanate PO 875 mg PO once Route: PO; ap3 16:39 Follow up: Response: Medication administered at discharge. ap3 Disposition: 17:36 Co-signature as Attending Physician, Boaz Arenas MD I reviewed the patient's care rt provided by the Advanced Practice Provider and agree with the diagnosis and treatment plan. Disposition Summary: 10/28/23 16:18 Discharge Ordered Notes: Location: Home kb Condition: Stable kb Diagnosis - Bitten by dog kb Followup: kb - With: Emergency Department - When: As needed - Reason: Worsening of condition Followup: kb - With: Private Physician - When: 2 - 3 days - Reason: Recheck today's complaints, Continuance of care, Re-evaluation by your physician Discharge Instructions: - Discharge Summary Sheet kb - Animal Bite, Adult, Rzoi-lo-Degm kb Forms: - Work release form kb - Medication Reconciliation Form kb - Antibiotic Education kb - Prescription Opioid Use kb - Patient Portal Instructions kb - Leadership Thank You Letter kb Prescriptions: - Augmentin 875-125 mg Oral Tablet - take 1 tablet ORAL route every 12 hours for 10 days; 20 tablet; Refills: 0, kb Product Selection Permitted Signatures: Leeanne Cortes FNP-C MANAGER VALIDATION-Ckb Rima Pichardo, RN RN ap3 Boaz Arenas MD MD rt
[2023-10-28] MEDS ORDERED: AMOX/K CLAV 875 MG TAB ONE (16:24)
[2023-10-28 16:52] VITALS: BP 133/94; TEMP 97.6; O2SAT 100
== END 2023-10-28 16:40 | disposition home or self-care (01) ==
LOC: ER 14:01
PROC: 0JQL0ZZ Repair Right Upper Leg Subcutaneous Tissue and Fascia, Open Approach (ICD-10-PCS; principal; 2023-10-28)
PROC: 0JQG0ZZ Repair Right Lower Arm Subcutaneous Tissue and Fascia, Open Approach (ICD-10-PCS; 2023-10-28)
DX: S51.851A Open bite of right forearm, initial encounter (principal); S71.151A Open bite, right thigh, initial encounter; S61.552A Open bite of left wrist, initial encounter; J45.909 Unspecified asthma, uncomplicated; F31.9 Bipolar disorder, unspecified; F20.9 Schizophrenia, unspecified; F17.210 Nicotine dependence, cigarettes, uncomplicated; F17.290 Nicotine dependence, other tobacco product, uncomplicated; W54.0XXA Bitten by dog, initial encounter; Y93.9 Activity, unspecified; Y92.9 Unspecified place or not applicable; Z23 Encounter for immunization
CPT/HCPCS: 12001 ×2; 96372; 99284; 12031; J2001

== ENCOUNTER 2024-06-02 23:30 | Emergency (ER) | payer OTHER ==
--- OUTSIDE RECORDS SUMMARY | 2024-06-02 23:33 | XMS REPORT | Continuity of Care Document ---
Author Name Unknown Address [address] [facility] [address] [place] [address] Organization [facility] Address [address] [facility] [place] [address] Care Team Providers Care Barrel Lapper Name Role Phone [facility], [facility] Care Physician REE AHN Attending Clinician Ree Ribera MD Attending Clinician [phone] Doctor Unassigned, [place] Attending Clinician U navailable Problems Condition Name Condition Details Condition Category Status Onset Date Resolution Date Last Treatment Date Treating Clinician Comments Source Supervisio n of other normal Supervisio n of other normal Disease Active 11-06 00:00: 00 [facility] Lump or mass in breast Lump or mass in breast Disease Active 09-20 00:00: 00 [facility] care and examinatio n immediatel y after delivery care and examinatio n immediatel y after delivery Disease Active 10-25 00:00: 00 [facility] Normal delivery Normal delivery Disease Active 10-25 00:00: 00 [facility] Allergies, Adverse Reactions, Alerts Allergy Name Allergy Type Status Severity Reaction(s) Onset Date Inactive Date Treating Clinician Comments Source SEAFOOD/ FISH Food Active Med Hives 07-14 00:00: 00 [facility] Seafood/ Fish Food Allergy Active Hives 07-14 00:00: 00 Crawfish [facility] ASPIRIN DRUG INGREDI Active Hives 10-25 00:00: 00 [facility] Aspirin Propensi ty to adverse reaction s Active Hives 10-25 00:00: 00 [facility] Social History Social Habit Start Date Stop Date Quantity Comments Source Exposure to SARS-CoV-2 (event) 2021-12-22 00:00:00 2022-01-01 09:54:00 Not sure [facility] Alcohol intake 2018-07-25 00:00:00 2018-07-25 00:00:00 Current non-drinker of alcohol (finding) [facility] Sex Ass[birth year] At 1975 00:00:00 1975 00:00:00 [facility] Smoking Status Start Date Stop Date Source Never smoked tobacco [facility] Medications Ordered Medication Name Filled Medication Name Start Date Stop Date Current Medication? Ordering Clinician Indication Dosage Frequency Signature (SIG) Comments Components Source azithromyci n 250 mg tablet 2021-02 00:00: 00 Yes [id number] 250mg Take 1 tablet by mouth SEE-INSTRU CTIONS. Take 500 mg day 1, then 250 mg days 2 to 5. [facility] acetaminoph en-codeine (TYLENOL-CO DEINE #3) 300-30 mg tablet 07-25 00:00: 00 Yes [id number] 1{tbl} Take 1 tablet by mouth every 4 (four) hours as needed for Pain (scale 7-10). [facility] ondansetron 4 mg disintegrat ing tablet 07-25 00:00: 00 Yes [id number] 4mg Take 1 tablet by mouth every 8 (eight) hours as needed for Nausea and Vomiting (N/V). [facility] triamcinolo ne 0.5 % ointment 09-02 09:47: 05 Yes Apply to area(s) 2 (two) times daily. [facility] Vital Signs Vital Name Observation Time Observation Value Comments S our Systolic blood pressure 2022-01-01 15:54:00 131 mm[Hg] [place] [facility] Diastolic blood pressure 2022-01-01 15:54:00 84 mm[Hg] [place] [facility] Heart rate 2022-01-01 15:54:00 90 /min [facility] Body temperature 2022-01-01 15:54:00 36.61 Mary Ellen [facility] Respiratory rate 2022-01-01 15:54:00 20 /min [facility] Body weight 2022-01-01 15:54:00 63.504 kg [facility] BMI 2022-01-01 15:54:00 27.34 kg/m2 [facility] Oxygen saturation in Arterial blood by Pulse oximetry 2022-01-01 15:54:00 98 /min [place] [facility] Procedures Procedure Date / Time Performed Performing Clinicia n Source RAPID INFLUENZA A/B 2022-01-01 16:04:00 Ree Ahn [facility] COVID-19 (ID NOW RAPID TESTING) 2022-01-01 16:04:00 Ree Ahn [facility] NOTICE OF PRIVACY PRACTICES 2022-01-01 15:45:21 Doctor Unassigned, [place] [facility] CONSENT/REFUSAL FOR DIAGNOSIS AND TREATMENT 2022-01-01 15:45:05 Doctor Unassigned, [place] [facility] Encounters Start Date/Time End Date/Time Encounter Type Admission Type Attending Clinicians Care Facility Care Department Encounter ID Source 2023-07-02 10:37:41 2023-07-02 10:37:41 Outpatient SFA [id number] [id number] Conner Mims 2022-11-02 17:01:22 2022-11-02 17:01:22 Outpatient SFA SFA [id number] Conner Ball Prasanna 2022-01-01 09:56:00 2022-01-01 11:11:00 Emergency X REE AHN [facility] ERT [id number] [facility] 2022-01-01 09:56:00 2022-01-01 11:11:00 Emergency Ree Ahn [facility] [id number] [facility] 2022-01-01 00:00:00 2022-01-01 00:00:00 Orders Only Doctor Unassigned, [place] [facility] [id number] [facility] Results Test Description Test Time Test Comments Results Resul t Comments Source SCR MAMM BILATERAL CAD DIGITAL 2017-12-25 15:48:19 - SCR MAMM BILATERAL CAD DIGITALBILATERAL FIRST EVER DIGITAL SCREENING MAMMOGRAM WITH CAD: 12/19/2017CLINICAL: Asymptomatic. Current mammographic images were evaluated by either a [employer] M-Vu or a [employer] CAD (computer aided detection system). No prior [...] prominent lymph nodes.Esme Chiang M.D. el/:12/25/2017 15:48:19 Commercial Litigation Associate: Jesusita Giron MM, [facility] Mammographyletter sent: Additional Imaging Mammogram BI-RADS: 0 Indeterminate
[2024-06-03] MEDS ORDERED: AMOX/K CLAV 875 MG TAB ONE (00:54)
[2024-06-03] MEDS ORDERED: predniSONE 20 MG TAB ONE (00:54)
[2024-06-03] MEDS ORDERED: DIPHENHYDRAMINE 25 MG TAB/CAP ONE (00:54)
[2024-06-03] MEDS ORDERED: ACETAMINOPHEN 500 MG TAB ONE (01:06)
--- NOTE | 2024-06-03 02:53 | EDPHYS ---
Physician Documentation [facility] Name: Sobia Ang Age: 49 yrs Sex: Female : 1975 Arrival Date: 06/02/2024 Time: 23:30 Bed IW1 Private MD: ED Physician Orville Dillard HPI: 06/03 01:38 This 49 yrs old Female presents to ER via Ambulatory with complaints of Facial sb4 swelling. 01:39 left side of face/jaw started swelling this evening. also feels like her mouth is dry sb4 and her throat is swollen. denies any dental pain, trauma to the area, or new allergens. 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 - Infectious Disease History:: Denies. - Social history:: Smoking status: Patient denies any tobacco usage or history of. ROS: 06/03 01:39 Constitutional: Negative for fever, chills, and weight loss, sb4 ENT: Positive for per HPI, All other systems are negative, Exam: 01:39 Constitutional: This is a well developed, well nourished patient who is awake, alert, sb4 and in no acute distress. Eyes: Extra-ocular motions intact. Periorbital areas with no swelling, redness, or edema. ENT: Mucous membranes moist. Respiratory: No increased work of breathing, no retractions or nasal flaring. Skin: Warm, dry with normal turgor. Normal color with no rashes, no lesions, and no evidence of cellulitis. 01:39 Head/face: Noted is swelling, that is moderate, of the left jaw, Vital Signs: 06/02 23:58 BP 159 / 102; Pulse 76; Resp 16; Temp 97.9; Pulse Ox 100% on R/A; Weight 68.04 kg; dd2 Height 5 ft. 0 in. ; Pain 9/10; 06/03 03:13 BP 132 / 84; Pulse 64; Resp 15; Temp 98; Pulse Ox 100% on R/A; dd2 06/02 23:58 Body Mass Index 29.29 (68.04 kg, 152.4 cm) dd2 06/02 23:58 Pain Scale: Adult dd2 [place] Coma Score: 01:13 Eye Response: spontaneous(4). Motor Response: obeys commands(6). Verbal Response: dd2 oriented(5). Total: 15. MDM: 06/02 23:48 Medical Screening Exam initiated sb4 06/03 02:56 Data reviewed: vital signs, nurses notes, lab test result(s), radiologic studies, I sb4 have discussed the patient's presentation/case with the attending Emergency Department Physician; and as a result, I will discharge patient. Counseling: I had a detailed discussion with the patient and/or guardian regarding the historical points, exam findings, and any diagnostic results supporting the discharge/admit diagnosis, lab results, radiology results, the need for outpatient follow up, for definitive care, to return to the emergency department if symptoms worsen or persist or if there are any questions or concerns that arise at home. 06/03 00:40 Order name: Soft Tissue Neck Wo Contr EDMS Administered Medications: 01:08 Drug: diphenhydrAMINE PO 25 mg PO once Route: PO; dd2 01:38 Follow up: Response: No adverse reaction dd2 01:08 Drug: predniSONE PO 40 mg PO once Route: PO; dd2 01:38 Follow up: Response: No adverse reaction dd2 01:08 Drug: Amoxicillin-Clavulanate PO 875 mg PO once Route: PO; dd2 01:38 Follow up: Response: No adverse reaction dd2 01:08 Drug: Acetaminophen PO 1000 mg PO once Route: PO; dd2 01:30 Follow up: Response: No adverse reaction dd2 Disposition: 03:48 Co-signature as Attending Physician, Orville Dillard MD I agree with the assessment sp4 and plan of care. I reviewed the patient's care provided by the Advanced Practice Provider and agree with the diagnosis and treatment plan. Disposition Summary: 06/03/24 02:53 Discharge Ordered Notes: Location: Home sb4 Problem: new sb4 Symptoms: have improved sb4 Condition: Stable sb4 Diagnosis - Localized swelling, mass and lump, head - left jaw sb4 Followup: sb4 - With: Emergency Department - When: As needed - Reason: Trouble breathing, Worsening of condition Discharge Instructions: - Discharge Summary Sheet sb4 Forms: - Antibiotic Education sb4 - Patient Portal Instructions sb4 - Leadership Thank You Letter sb4 Prescriptions: - cefdinir 300 mg Oral capsule - take 1 capsule ORAL route 2 times per day for 10 days; 20 capsule; Refills: 0, sb4 Product Selection Permitted - Benadryl 25 mg Oral Capsule - take 1 capsule ORAL route every 6 hours As needed; 30 tablet; Refills: 0, sb4 Product Selection Permitted - Prednisone 20 mg Oral Tablet - take 2 tablets ORAL route once daily for 5 days; 10 tablet; Refills: 0, Product sb4 Selection Permitted Signatures: Dispatcher [employer] EDAnni Walden PA-C PA-C sb4 Orville Dillard MD MD sp4 RAFITA FARAH RN RN dd2
--- NOTE | 2024-06-03 02:53 | ER ---
Nurse's Notes 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 Coronavirus screen: At this time, the client does not indicate any symptoms associated with coronavirus-19. Ebola Screen: No symptoms or risks identified at this time. Initial Sepsis Screen: Does the patient meet any 2 criteria? No. Patient's initial sepsis screen is negative. Does the patient have a suspected source of infection? No. Patient's initial sepsis screen is negative. Risk Assessment: Do you want to hurt yourself or someone else? Patient reports no desire to harm self or others. Onset of symptoms was June 02, 2024. 23:58 Method Of Arrival: Ambulatory dd2 23:58 Acuity: FRANCES 3 dd2 Triage Assessment: 23:59 General: Appears in no apparent distress. uncomfortable, Behavior is calm, cooperative, dd2 appropriate for age. Pain: Complains of pain in left ear and left jaw Pain does not radiate. Pain currently is 9 out of 10 on a pain scale. Derm: EDEMA TO LT JAW Reports pain that is 9 out of 10 on a pain scale. Musculoskeletal: Swelling present in left jaw Tenderness present in left jaw and left ear Reports pain in left jaw and left ear. 23:59 EENT: No deficits noted. Reports difficulty swallowing. dd2 23:59 Neuro: No deficits noted. Hernandez Agitation-Sedation Scale (RASS): 0 - Alert and Calm dd2 Level of Consciousness is awake, alert, obeys commands, Oriented to person, place, time, situation, Appropriate for age. Cardiovascular: No deficits noted. Reports None Patient's skin is warm and dry. Respiratory: Airway is patent Respiratory effort is even, unlabored, Respiratory pattern is regular, symmetrical. GI: No deficits noted. No signs and/or symptoms were reported involving the gastrointestinal system. : No deficits noted. No signs and/or symptoms were reported regarding the genitourinary system. 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 - Infectious Disease History:: Denies. - Social history:: Smoking status: Patient denies any tobacco usage or history of. Screenin/15 01:13 [facility] ED Fall Risk Assessment (Adult) History of falling in the last 3 months, dd2 including since admission No falls in past 3 months (0 pts) Confusion or Disorientation No (0 pts) Intoxicated or Sedated No (0 pts) Impaired Gait No (0 pts) Mobility Assist Device Used No (0 pt) Altered Elimination No (0 pt) Score/Fall Risk Level 0 - 2 = Low Risk Oriented to surroundings, Maintained a safe environment, Educated pt \T\ family on fall prevention, incl call for assistance when getting out of bed, Assessed \T\ reinforced patient's understanding of fall precautions, Hourly rounding (assess needs \T\ fall precautionary measures) done. Abuse screen: Denies threats or abuse. Denies injuries from another. Nutritional screening: No deficits noted. Tuberculosis screening: No symptoms or risk factors identified. Assessment: 01:13 Reassessment: SEE TRIAGE ASSESSMENT FOR FULL ASSESSMENT. dd2 Vital Signs: 06/02 23:58 BP 159 / 102; Pulse 76; Resp 16; Temp 97.9; Pulse Ox 100% on R/A; Weight 68.04 kg; dd2 Height 5 ft. 0 in. ; Pain 9/10; 06/03 03:13 BP 132 / 84; Pulse 64; Resp 15; Temp 98; Pulse Ox 100% on R/A; dd2 06/02 23:58 Body Mass Index 29.29 (68.04 kg, 152.4 cm) dd2 06/02 23:58 Pain Scale: Adult dd2 [place] Coma Score: 01:13 Eye Response: spontaneous(4). Motor Response: obeys commands(6). Verbal Response: dd2 oriented(5). Total: 15. ED Course: 06/02 23:31 Patient arrived in ED. jj6 23:40 [facility]adarr[facility]C [facility] sb4 23:40 Orville Dillard MD is Attending Physician. sb4 23:59 Triage completed. dd2 23:59 Arm band placed on right wrist. dd2 0415 01:00 Soft Tissue Neck Wo Contr In Process Unspecified. EDMS 01:13 Patient has correct armband on for positive identification. Warm blanket given. PO dd2 fluids given. Verbal reassurance given. 01:13 No provider procedures requiring assistance completed. Patient did not have IV access dd2 during this emergency room visit. Patient maintains SpO2 saturation greater than 95% on room air. 03:13 Provided Education on: D/C EDUCATION, MEDICATION AND F/U. dd2 Administered Medications: 01:08 Drug: diphenhydrAMINE PO 25 mg PO once Route: PO; dd2 01:38 Follow up: Response: No adverse reaction dd2 01:08 Drug: predniSONE PO 40 mg PO once Route: PO; dd2 01:38 Follow up: Response: No adverse reaction dd2 01:08 Drug: Amoxicillin-Clavulanate PO 875 mg PO once Route: PO; dd2 01:38 Follow up: Response: No adverse reaction dd2 01:08 Drug: Acetaminophen PO 1000 mg PO once Route: PO; dd2 01:30 Follow up: Response: No adverse reaction dd2 Medication: 01:13 VIS not applicable for this client. dd2 Outcome: 02:53 Discharge ordered by . sb4 03:13 Discharged to home ambulatory, dd2 03:13 Condition: stable 03:13 Discharge instructions given to patient, Instructed on discharge instructions, follow up and referral plans. medication usage, Demonstrated understanding of instructions, follow-up care, medications, Prescriptions given X 3, 03:16 Patient left the ED. dd2 Signatures: Dispatcher [employer] EDMS Anne Chapin jj6 Shanae Melendez RN RN ha1 Anni Guadarrama PA-C PA-C sb4 RAFITA FARAH RN RN dd2 Corrections: (The following items were deleted from the chart) 01:11 0414 23:59 Musculoskeletal: Swelling present in left jaw dd2 ha1
[2024-06-03 03:21] VITALS: O2SAT 100
[2024-06-03 03:22] VITALS: BP 132/84; TEMP 98
--- NOTE | 2024-06-03 04:23 | RAD REPORT ---
EXAM: CT Neck Without Intravenous Contrast CLINICAL HISTORY: The patient is 49 years old and is Female; left mandibular swelling TECHNIQUE: Axial computed tomography images of the neck without intravenous contrast. Sagittal an d coronal reformatted images were created and reviewed. This CT exam was performed using one or more of the following dose reduction techniques: automated exposure control, adjustment of the mA a nd/or kV according to patient size, and/or use of iterative reconstruction technique. COMPARISON: No relevant prior studies available. FINDINGS: Limitations: Evaluation for abscess limited without IV contrast. Oropharynx: Unremarkable. No significant tonsillar enlargement. Hypopharynx: Unremarkable. Larynx: Unremarkable. Normal epiglottis. Trachea: Unremarkable. Retropharyngeal space: Unremarkable. Submandibular/parotid glands: Unremarkable. Glands are normal in size. Thyroid: Unremarkable. No enlarged or calcified nodules. Bones/joints: No acute fracture. Soft tissues: Unremarkable. Vasculature: No acute findings. Lymph nodes: Enlarged hypoattenuating left parotid gland with adjacent stranding/fluid and promin ent lymph nodes suggestive of parotitis. Lung apices: Unremarkable as visualized. Other findings: Thickening of the left platysma. IMPRESSION: Enlarged hypoattenuating left parotid gland with adjacent stranding/fluid and prominent lymph nodes suggestive of parotitis. Electronically signed by: Alber Wallace MD 06/03/2024 04:18 AM CDT 8 Due to temporary technical issues with the PACS/RawFlow reporting system, reports are being neville d by the in-house radiologist without review as a courtesy to ensure prompt reporting the interpreting radiologist is fully responsible for the content of the report. Transcribed Date/Time: 06/03/2024 4:23 AM
== END 2024-06-03 03:16 | disposition home or self-care (01) ==
LOC: ER 23:30
DX: R22.0 Localized swelling, mass and lump, head (principal)
CPT/HCPCS: 70490; J7512

== ENCOUNTER 2024-06-25 08:57 | Emergency (ER) | payer OTHER ==
--- OUTSIDE RECORDS SUMMARY | 2024-06-25 09:00 | XMS REPORT | Continuity of Care Document ---
Author Name Unknown Address [address] [place] [address] Organization [facility] [place] Address [address] [place] [address] Care Team Providers Care Assembler Arranger Name Role Phone [facility] Care Physician REE AHN Attending Clinician Ree Ribera MD Attending Clinician [phone] Doctor Unassigned, [place] Attending Clinician U navailable Problems Condition Name Condition Details Condition Category Status Onset Date Resolution Date Last Treatment Date Treating Clinician Comments Source Supervisio n of other normal Supervisio n of other normal Disease Active 11-06 00:00: 00 [facility] Lump or mass in breast Lump or mass in breast Disease Active 09-20 00:00: 00 [facility] care and examinatio n immediatel y after delivery care and examinatio n immediatel y after delivery Disease Active 10-25 00:00: 00 [facility] Normal delivery Normal delivery Disease Active 10-25 00:00: 00 [facility] Allergies, Adverse Reactions, Alerts Allergy Name Allergy Type Status Severity Reaction(s) Onset Date Inactive Date Treating Clinician Comments Source SEAFOOD/ FISH Food Active Med Hives 2018-07-14 00:00: 00 [facility] Seafood/ Fish Food Allergy Active Hives 07-14 00:00: 00 [facility] ASPIRIN DRUG INGREDI Active Hives 10-25 00:00: 00 [facility] Aspirin Propensi ty to adverse reaction s Active Hives 10-25 00:00: 00 [facility] Social History Social Habit Start Date Stop Date Quantity Comments Source Exposure to SARS-CoV-2 (event) 2021-12-22 00:00:00 2022-01-01 09:54:00 Not sure [facility] Alcohol intake 2018-07-25 00:00:00 2018-07-25 00:00:00 Current non-drinker of alcohol (finding) [facility] Sex Ass[birth year] At 1975 00:00:00 1975 00:00:00 [facility] Smoking Status Start Date Stop Date Source Never smoked tobacco [facility] Medications Ordered Medication Name Filled Medication Name Start Date Stop Date Current Medication? Ordering Clinician Indication Dosage Frequency Signature (SIG) Comments Components Source azithromyci n 250 mg tablet 2021-02 00:00: 00 Yes [id number] 250mg Take 1 tablet by mouth SEE-INSTRU CTIONS. Take 500 mg day 1, then 250 mg days 2 to 5. [facility] acetaminoph en-codeine (TYLENOL-CO DEINE #3) 300-30 mg tablet 07-25 00:00: 00 Yes [id number] 1{tbl} Take 1 tablet by mouth every 4 (four) hours as needed for Pain (scale 7-10). [facility] ondansetron 4 mg disintegrat ing tablet 07-25 00:00: 00 Yes [id number] 4mg Take 1 tablet by mouth every 8 (eight) hours as needed for Nausea and Vomiting (N/V). [facility] triamcinolo ne 0.5 % ointment 09-02 09:47: 05 Yes Apply to area(s) 2 (two) times daily. [facility] Vital Signs Vital Name Observation Time Observation Value Comments S our Systolic blood pressure 2022-01-01 15:54:00 131 mm[Hg] [facility] Diastolic blood pressure 2022-01-01 15:54:00 84 mm[Hg] [facility] Heart rate 2022-01-01 15:54:00 90 /min [facility] Body temperature 2022-01-01 15:54:00 36.61 Mary Ellen [facility] Respiratory rate 2022-01-01 15:54:00 20 /min [facility] Body weight 2022-01-01 15:54:00 63.504 kg [facility] BMI 2022-01-01 15:54:00 27.34 kg/m2 [facility] Oxygen saturation in Arterial blood by Pulse oximetry 2022-01-01 15:54:00 98 /min [facility] Procedures Procedure Date / Time Performed Performing Clinicia n Source RAPID INFLUENZA A/B 2022-01-01 16:04:00 Ree Ahn [facility] COVID-19 (ID NOW RAPID TESTING) 2022-01-01 16:04:00 Ree Ahn [facility] NOTICE OF PRIVACY PRACTICES 2022-01-01 15:45:21 Doctor Unassigned, [place] [facility] CONSENT/REFUSAL FOR DIAGNOSIS AND TREATMENT 2022-01-01 15:45:05 Doctor Unassigned, [place] [facility] Encounters Start Date/Time End Date/Time Encounter Type Admission Type Attending [facility] Care Facility Care Department Encounter ID Source 2023-07-02 10:37:41 2023-07-02 10:37:41 Outpatient SFA [id number] [id number] Conner Mims 2022-11-02 17:01:22 2022-11-02 17:01:22 Outpatient SFA [id number] [id number] Conner Mims 2022-01-01 09:56:00 2022-01-01 11:11:00 Emergency X REE AHN [facility] ERT [id number] [facility] 2022-01-01 09:56:00 2022-01-01 11:11:00 Emergency Ree Ahn [facility] [id number] [facility] 2022-01-01 00:00:00 2022-01-01 00:00:00 Orders Only Doctor Unassigned, [place] [facility] [id number] [facility] Results Test Description Test Time Test Comments Results Resul t Comments Source SCR MAMM BILATERAL CAD DIGITAL 2017-12-25 15:48:19 - SCR MAMM BILATERAL CAD DIGITALBILATERAL FIRST EVER DIGITAL SCREENING MAMMOGRAM WITH CAD: 12/19/2017CLINICAL: Asymptomatic. Current mammographic images were evaluated by either a AimWith M-Vu or a [employer] ImageCheLemoner CAD (computer aided detection system). No prior [...] lymph nodes.Esme Chiang M.D. el/:12/25/2017 15:48:19 Manager [place]: Jesusita Giron MM, [facility] Mammographyletter sent: Additional Imaging Mammogram BI-RADS: 0 Indeterminate
[2024-06-25 10:09] LABS: Influenza A Ag Negative; Influenza B Ag Positive; SARS-CoV-2 Antigen Rapid Res Negative (Negative)
--- NOTE | 2024-06-25 10:15 | RAD REPORT ---
EXAMINATION: TWO VIEW CHEST XR CLINICAL INDICATION: Female, 49 years old. [facility] MAIN COUGH Bed Name: TECHNIQUE: 2 view radiographs of the chest were performed. COMPARISON: 06/10/2023 FINDINGS: The lungs are well inflated and clear. No pneumothorax or sizable effusion. The heart is normal in si ze. Mediastinal contours are unremarkable. IMPRESSION: No acute or significant abnormalities.
--- NOTE | 2024-06-25 10:39 | EDPHYS ---
Physician Documentation [facility] Name: Sobia Ang Age: 49 yrs Sex: Female : 1975 Arrival Date: 06/25/2024 Time: 08:57 Bed DIS1 Private MD: RADHA Physician Alex Malik HPI: 06/25 10:33 This 49 yrs old Female presents to ER via Ambulatory with complaints of Cough, saumya Chest Congestion. 10:33 The patient or guardian reports airway noise, cough, difficulty breathing, flu saumya symptoms, arthralgias, low-grade fever, myalgias. Severity of symptoms: At their worst the symptoms were mild. Modifying factors: The symptoms are alleviated by nothing, the symptoms are aggravated by nothing. Associated signs and symptoms: Pertinent positives: nausea, rhinorrhea, sore throat. The patient has not experienced similar symptoms in the past. Historical: - Allergies: 09:19 Aspirin (Hives); hb - PMHx: 09:19 Bipolar disorder; Schizophrenia; Skin Condition; Asthma; hb - PSHx: 09:19 Ligation of fallopian tube; tubes in Ears; hb - Immunization history:: Adult Immunizations up to date. - Infectious Disease History:: Denies. - Social history:: Smoking status: Patient denies any tobacco usage or history of. ROS: 10:34 Constitutional: Negative for fever, chills, and weight loss, Eyes: Negative for injury, saumya pain, redness, and discharge, ENT: Negative for injury, pain, and discharge, Neck: Negative for injury, pain, and swelling, Cardiovascular: Negative for chest pain, palpitations, and edema, Abdomen/GI: Negative for abdominal pain, nausea, vomiting, diarrhea, and constipation, Back: Negative for injury and pain, : Negative for injury, bleeding, discharge, and swelling, MS/Extremity: Negative for injury and deformity, Skin: Negative for injury, rash, and discoloration, Neuro: Negative for headache, weakness, numbness, tingling, and seizure, Psych: Negative for depression, anxiety, suicide ideation, homicidal ideation, and hallucinations, Allergy/Immunology: Negative for hives, rash, and allergies, Endocrine: Negative for neck swelling, polydipsia, polyuria, polyphagia, and marked weight changes, Hematologic/Lymphatic: Negative for swollen nodes, abnormal bleeding, and unusual bruising, 10:34 Respiratory: Positive for cough, Exam: 10:34 Constitutional: This is a well developed, well nourished patient who is awake, alert, saumya and in no acute distress. Head/Face: Normocephalic, atraumatic. Eyes: Pupils equal round and reactive to light, extra-ocular motions intact. Lids and lashes normal. Conjunctiva and sclera are non-icteric and not injected. Cornea within normal limits. Periorbital areas with no swelling, redness, or edema. ENT: Nares patent. No nasal discharge, no septal abnormalities noted. Tympanic membranes are normal and external auditory canals are clear. Oropharynx with no redness, swelling, or masses, exudates, or evidence of obstruction, uvula midline. Mucous membranes moist. Neck: Trachea midline, no thyromegaly or masses palpated, and no cervical lymphadenopathy. Supple, full range of motion without nuchal rigidity, or vertebral point tenderness. No Meningismus. Chest/axilla: Normal chest wall appearance and motion. Nontender with no deformity. No lesions are appreciated. Cardiovascular: Regular rate and rhythm with a normal S1 and S2. No gallops, murmurs, or rubs. Normal PMI, no JVD. No pulse deficits. Respiratory: Lungs have equal breath sounds bilaterally, clear to auscultation and percussion. No rales, rhonchi or wheezes noted. No increased work of breathing, no retractions or nasal flaring. Abdomen/GI: Soft, non-tender, with normal bowel sounds. No distension or tympany. No guarding or rebound. No evidence of tenderness throughout. Back: No spinal tenderness. No costovertebral tenderness. Full range of motion. Skin: Warm, dry with normal turgor. Normal color with no rashes, no lesions, and no evidence of cellulitis. MS/ Extremity: Pulses equal, no cyanosis. Neurovascular intact. Full, normal range of motion., bilateral aka Neuro: Awake and alert, GCS 15, oriented to person, place, time, and situation. Cranial nerves II-XII grossly intact. Motor strength 5/5 in all extremities. Sensory grossly intact. Cerebellar exam normal. Normal gait. Psych: Awake, alert, with orientation to person, place and time. Behavior, mood, and affect are within normal limits. Vital Signs: 09:19 BP 127 / 80; Pulse 84; Resp 18; Temp 98.7(O); Pulse Ox 100% on R/A; Pain 3/10; hb 10:30 BP 126 / 80; Pulse 82; Resp 16; Pulse Ox 100% on R/A; db 09:19 Pain Scale: Adult hb MDM: 09:13 Medical Screening Exam initiated rt 10:36 Antibiotic administration: Not indicated, the patient does not have an appreciated saumya infiltrate, The patient is discharged and will get outpatient antibiotics, Zithromax. Differential Diagnosis: Obstructed Airway Bronchitis Influenza Upper Respiratory Infection Sinusitis Pharyngitis Allergic Rhinitis Asthma Exacerbation Viral Syndrome Pneumonia Tracheal Injury. Data reviewed: vital signs, nurses notes, lab test result(s), Flu: positive. Consideration of Admission/Observation Escalation of care including admission/observation considered. I considered the following discharge prescriptions or medication management in the emergency department Medications were administered in the Emergency Department. See MAR. Test considered but Not performed: X-ray: no cxr. 06/25 09:23 Order name: COVID-19 Ag + Flu A+B Ag; Complete Time: 10:32 saumya 06/25 09:23 Order name: Chest Pa And Lat (2 Views) XRAY; Complete Time: 10:32 [facility] Administered Medications: 10:55 Drug: AZITHromycin PO 500 mg PO once Route: PO; db 11:03 Follow up: Response: No adverse reaction db 10:55 Drug: Tessalon Perle PO 200 mg PO once Route: PO; db 11:03 Follow up: Response: No adverse reaction db Disposition Summary: 06/25/24 10:38 Discharge Ordered Notes: Location: Home [facility] Problem: new saumya Symptoms: have improved saumya Condition: Stable saumya Diagnosis - Influenza due to other identified influenza virus with other respiratory saumya manifestations - Influenz B - Cough saumya Followup: saumya - With: Private Physician - When: 2 - 3 days - Reason: Recheck today's complaints, Continuance of care, Re-evaluation by your physician Discharge Instructions: - Discharge Summary Sheet saumya - Influenza, Adult saumya - Upper Respiratory Infection, Adult saumya - Cool Mist Vaporizer saumya - Upper Respiratory Infection, Adult, [id number] saumya - Influenza, Adult, [id number] saumya Forms: - Medication Reconciliation Form saumya - Antibiotic Education saumya - Prescription Opioid Use saumya - Patient Portal Instructions saumya - Leadership Thank You Letter saumya - Work release form hb Prescriptions: - albuterol sulfate 90 mcg/actuation Inhalation HFA Aerosol Inhaler - inhale 2 puff INHALATION route every 4 to 6 hours as needed for shortness of saumya breath or wheezing; 1 unit; Refills: 0, Product Selection Permitted - Tessalon Perles 100 mg Oral capsule - take 2 capsule ORAL route every 8 hours As needed; 30 capsule; Refills: 0, saumya Product Selection Permitted - Medrol (David) 4 mg Oral Tablets, Dose Pack - take 1 tablet ORAL route as directed - follow package instructions; 1 packet; saumya Refills: 0, Product Selection Permitted - Zithromax 500 mg Oral Tablet - take 1 tablet ORAL route once daily for 5 days; 5 tablet; Refills: 0, Product saumya Selection Permitted Signatures: Dispatcher [employer] Alex Santiago MD MD cha Baxter, Heather, ANNA CASTILLO Echo De Oliveira RN RN Boaz Rodney MD MD rt
--- NOTE | 2024-06-25 10:39 | ER ---
Nurse's Notes [facility] Name: Sobia Ang Age: 49 yrs Sex: Female : 1975 Arrival Date: 06/25/2024 Time: 08:57 Bed DIS1 Private MD: Diagnosis: Influenza due to other identified influenza virus with other respiratory manifestations-Influenz B;Cough Presentation: 06/25 09:19 Chief complaint: Congestion and body aches x 2 days. Coronavirus screen: Client hb presents with at least one sign or symptom that may indicate coronavirus-19. Provider contacted for isolation considerations. Ebola Screen: No symptoms or risks identified at this time. Initial Sepsis Screen: Does the patient meet any 2 criteria? No. Patient's initial sepsis screen is negative. Does the patient have a suspected source of infection? No. Patient's initial sepsis screen is negative. Risk Assessment: Do you want to hurt yourself or someone else? Patient reports no desire to harm self or others. Onset of symptoms was June 24, 2024. 09:19 Method Of Arrival: Ambulatory hb 09:19 Acuity: FRANCES 4 hb Historical: - Allergies: 09:19 Aspirin (Hives); hb - PMHx: 09:19 Bipolar disorder; Schizophrenia; Skin Condition; Asthma; hb - PSHx: 09:19 Ligation of fallopian tube; tubes in Ears; hb - Immunization history:: Adult Immunizations up to date. - Infectious Disease History:: Denies. - Social history:: Smoking status: Patient denies any tobacco usage or history of. Screenin:02 [facility] ED Fall Risk Assessment (Adult) History of falling in the last 3 months, db including since admission No falls in past 3 months (0 pts) Confusion or Disorientation No (0 pts) Intoxicated or Sedated No (0 pts) Impaired Gait No (0 pts) Mobility Assist Device Used No (0 pt) Altered Elimination No (0 pt) Score/Fall Risk Level 0 - 2 = Low Risk Oriented to surroundings, Maintained a safe environment. Abuse screen: Denies threats or abuse. Denies injuries from another. Nutritional screening: No deficits noted. Tuberculosis screening: No symptoms or risk factors identified. Assessment: 10:30 Reassessment: Patient appears in no apparent distress at this time. Patient and/or db family updated on plan of care and expected duration. Pain level reassessed. Patient is alert, oriented x 3, equal unlabored respirations, skin warm/dry/pink. General: Appears in no apparent distress. comfortable, Behavior is calm, cooperative. Pain: Denies pain. Neuro: Level of Consciousness is awake, alert, obeys commands, Oriented to person, place, time, situation. Respiratory: Airway is patent Respiratory effort is even, unlabored, Respiratory pattern is regular, symmetrical. Vital Signs: 09:19 BP 127 / 80; Pulse 84; Resp 18; Temp 98.7(O); Pulse Ox 100% on R/A; Pain 3/10; hb 10:30 BP 126 / 80; Pulse 82; Resp 16; Pulse Ox 100% on R/A; db 09:19 Pain Scale: Adult hb ED Course: 09:02 Patient arrived in ED. gl 09:10 Boaz Arenas MD is Attending Physician. rt 09:19 Triage completed. hb 09:20 Arm band placed on. hb 09:21 Attending Physician role handed off by Boaz Arenas MD saumya 09:21 Alex Malik MD is Attending Physician. [facility] 09:56 Chest Pa And Lat (2 Views) XRAY In Process Unspecified. EDMS 10:59 Echo De Oliveira, RN is Primary Nurse. db 11:01 No provider procedures requiring assistance completed. Patient did not have IV access db during this emergency room visit. 11:02 Patient has correct armband on for positive identification. Bed in low position. Call db light in reach. Side rails up X 1. Provided Education on: DISCHARGE AND FOLLOWUP. Warm blanket given. Pillow given. Administered Medications: 10:55 Drug: AZITHromycin PO 500 mg PO once Route: PO; db 11:03 Follow up: Response: No adverse reaction db 10:55 Drug: Tessalon Perle PO 200 mg PO once Route: PO; db 11:03 Follow up: Response: No adverse reaction db Medication: 11:02 VIS not applicable for this client. db Outcome: 10:38 Discharge ordered by . saumya 11:01 Discharged to home ambulatory, with family, db 11:01 Condition: stable 11:01 Discharge instructions given to 11:02 Prescriptions given X 4, db 11:03 Patient left the ED. db Signatures: Dispatcher [employer] EDIL Alex Malik MD MD cha Baxter, Heather, RN RN Echo Chavez RN RN db Boaz Arenas MD MD rt Nesha Andrade, Reg Reg gl Corrections: (The following items were deleted from the chart) 11:02 11:01 Condition: stable db db
[2024-06-25] MEDS ORDERED: AZITHROMYCIN 250 MG TAB ONE (10:54)
[2024-06-25] MEDS ORDERED: BENZONATATE 100 MG CAP PO ONE (10:54)
[2024-06-25 15:27] VITALS: TEMP 98.7; O2SAT 100
[2024-06-25 15:28] VITALS: BP 126/80
== END 2024-06-25 11:03 | disposition home or self-care (01) ==
LOC: ER 08:57
DX: J10.1 Influenza due to other identified influenza virus with other respiratory manifestations (principal); Z11.52 Encounter for screening for COVID-19
CPT/HCPCS: 36415; 71046; 87428

== ENCOUNTER 2024-07-03 09:32 | Emergency (ER) | payer OTHER ==
--- OUTSIDE RECORDS SUMMARY | 2024-07-03 09:36 | XMS REPORT | Continuity of Care Document ---
Author Name Unknown Address [address] [facility] [place] [address] Organization [facility] [place] Address [address] 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 Phone [facility], [facility] Care Physician REE AHN Attending Clinician Ree Ribera MD Attending Clinician [phone] Doctor Unassigned, [place] Attending Clinician U navailable Problems Condition Name Condition Details Condition Category Status Onset Date Resolution Date Last Treatment Date Treating Clinician Comments Source Supervisio n of other normal Supervisio n of other normal Disease Active 11-06 00:00: 00 [facility] Lump or mass in breast Lump or mass in breast Disease Active 09-20 00:00: 00 [facility] care and examinatio n immediatel y after delivery care and examinatio n immediatel y after delivery Disease Active 10-25 00:00: 00 [facility] Normal delivery Normal delivery Disease Active 10-25 00:00: 00 [facility] Allergies, Adverse Reactions, Alerts Allergy Name Allergy Type Status Severity Reaction(s) Onset Date Inactive Date Treating Clinician Comments Source SEAFOOD/ FISH Food Active Med Hives 2018-07-14 00:00: 00 [facility] Seafood/ Fish Food Allergy Active Hives 07-14 00:00: 00 Mercedes [facility] ASPIRIN DRUG INGREDI Active Hives 10-25 00:00: 00 [facility] Aspirin Propensi ty to adverse reaction s Active Hives 10-25 00:00: 00 [facility] Social History Social Habit Start Date Stop Date Quantity Comments Source Exposure to SARS-CoV-2 (event) 2021-12-22 00:00:00 2022-01-01 09:54:00 Not sure [facility] Alcohol intake 2018-07-25 00:00:00 2018-07-25 00:00:00 Current non-drinker of alcohol (finding) [facility] Sex Ass[birth year] At 1975 00:00:00 1975 00:00:00 [facility] Smoking Status Start Date Stop Date Source Never smoked tobacco [facility] Medications Ordered Medication Name Filled Medication Name Start Date Stop Date Current Medication? Ordering Clinician Indication Dosage Frequency Signature (SIG) Comments Components Source azithromyci n 250 mg tablet 2021-02 00:00: 00 Yes [id number] 250mg Take 1 tablet by mouth SEE-INSTRU CTIONS. Take 500 mg day 1, then 250 mg days 2 to 5. [facility] acetaminoph en-codeine (TYLENOL-CO DEINE #3) 300-30 mg tablet 07-25 00:00: 00 Yes [id number] 1{tbl} Take 1 tablet by mouth every 4 (four) hours as needed for Pain (scale 7-10). [facility] ondansetron 4 mg disintegrat ing tablet 07-25 00:00: 00 Yes [id number] 4mg Take 1 tablet by mouth every 8 (eight) hours as needed for Nausea and Vomiting (N/V). [facility] triamcinolo ne 0.5 % ointment 09-02 09:47: 05 Yes Apply to area(s) 2 (two) times daily. [facility] Vital Signs Vital Name Observation Time Observation Value Comments S our Systolic blood pressure 2022-01-01 15:54:00 131 mm[Hg] [place] [facility] Diastolic blood pressure 2022-01-01 15:54:00 84 mm[Hg] [place] [facility] Heart rate 2022-01-01 15:54:00 90 /min [facility] Body temperature 2022-01-01 15:54:00 36.61 [place] [facility] Respiratory rate 2022-01-01 15:54:00 20 /min [facility] Body weight 2022-01-01 15:54:00 63.504 kg [facility] BMI 2022-01-01 15:54:00 27.34 kg/m2 [facility] Oxygen saturation in Arterial blood by Pulse oximetry 2022-01-01 15:54:00 98 /min [place] [facility] Procedures Procedure Date / Time Performed Performing Clinicia n Source RAPID INFLUENZA A/B 2022-01-01 16:04:00 Ree Ahn [facility] COVID-19 (ID NOW RAPID TESTING) 2022-01-01 16:04:00 Ree Ahn [facility] NOTICE OF PRIVACY PRACTICES 2022-01-01 15:45:21 Doctor Unassigned, [place] [facility] CONSENT/REFUSAL FOR DIAGNOSIS AND TREATMENT 2022-01-01 15:45:05 Doctor Unassigned, [place] [facility] Encounters Start Date/Time End Date/Time Encounter Type Admission Type Attending [facility] Care Facility Care Department Encounter ID Source 2023-07-02 10:37:41 2023-07-02 10:37:41 Outpatient SFA SFA [id number] Conner Mims 2022-11-02 17:01:22 2022-11-02 17:01:22 Outpatient SFA SFA [id number] Conner Mims 2022-01-01 09:56:00 2022-01-01 11:11:00 Emergency X REE AHN [facility] ERT [id number] [facility] 2022-01-01 09:56:00 2022-01-01 11:11:00 Emergency Ree Ahn [facility] [id number] [facility] 2022-01-01 00:00:00 2022-01-01 00:00:00 Orders Only Doctor Unassigned, [place] [facility] [id number] [facility] Results Test Description Test Time Test Comments Results Resul t Comments Source SCR MAMM BILATERAL CAD DIGITAL 2017-12-25 15:48:19 - SCR MAMM BILATERAL CAD DIGITALBILATERAL FIRST EVER DIGITAL SCREENING MAMMOGRAM WITH CAD: 12/19/2017CLINICAL: Asymptomatic. Current mammographic images were evaluated by either a [employer] M-[employer]u or a [employer]er CAD (computer aided detection system). No prior [...] lymph nodes.Esme Chiang M.D. el/:12/25/2017 15:48:19 Senior Accounts Payable Specialist: Jesusita Giron MM, [facility] Mammographyletter sent: Additional Imaging Mammogram BI-RADS: 0 Indeterminate
[2024-07-03] MEDS ORDERED: LIDOCAINE 2% W/EPI 1:200,000 MPF 20 ML VIAL IM ONE (10:04)
[2024-07-03] MEDS ORDERED: DOXYCYCLINE 100 MG CAP PO ONE (10:04)
[2024-07-03] MEDS ORDERED: SMZ./TMP. 800/160 MG TABLET ONE (10:04)
--- NOTE | 2024-07-03 11:18 | ER ---
Nurse's Notes [facility] Name: Sobia Ang Age: 49 yrs Sex: Female : 1975 Arrival Date: 07/03/2024 Time: 09:32 Bed 20 Private MD: Diagnosis: Cutaneous abscess of other sites-right axilla Presentation: 07/03 09:49 Chief complaint: Patient states: RT AXILLARY ABSCESS. Coronavirus screen: At this time, bp the client does not indicate any symptoms associated with coronavirus-19. Ebola Screen: No symptoms or risks identified at this time. Initial Sepsis Screen: Does the patient meet any 2 criteria? No. Patient's initial sepsis screen is negative. Does the patient have a suspected source of infection? No. Patient's initial sepsis screen is negative. Risk Assessment: Do you want to hurt yourself or someone else? Patient reports no desire to harm self or others. Onset of symptoms is unknown. 09:49 Method Of Arrival: Ambulatory bp 09:49 Acuity: FRANCES 4 bp Triage Assessment: 09:53 General: Appears in no apparent distress. uncomfortable, Behavior is cooperative, bp appropriate for age, anxious. Pain: Complains of pain in mouth. EENT: Reports pain in mouth. Neuro: No deficits noted. Cardiovascular: No deficits noted. Respiratory: No deficits noted. GI: No signs and/or symptoms were reported involving the gastrointestinal system. : No signs and/or symptoms were reported regarding the genitourinary system. Derm: No deficits noted. Musculoskeletal: No deficits noted. 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 - Infectious Disease History:: Denies. - Social history:: Smoking status: Patient denies any tobacco usage or history of. Screenin:29 [facility] ED Fall Risk Assessment (Adult) History of falling in the last 3 months, bp including since admission No falls in past 3 months (0 pts) Confusion or Disorientation No (0 pts) Intoxicated or Sedated No (0 pts) Impaired Gait No (0 pts) Mobility Assist Device Used No (0 pt) Altered Elimination No (0 pt) Score/Fall Risk Level 0 - 2 = Low Risk Oriented to surroundings. Abuse screen: Denies threats or abuse. Denies injuries from another. Nutritional screening: No deficits noted. Tuberculosis screening: No symptoms or risk factors identified. Assessment: 09:58 General: Appears in no apparent distress. uncomfortable, Behavior is. bp Vital Signs: 09:53 BP 121 / 84; Pulse 70; Resp 16; Temp 98; Pulse Ox 99% ; bp 11:31 BP 123 / 73; Pulse 74; Resp 16; Pulse Ox 100% ; bp ED Course: 09:41 Patient arrived in ED. cj3 09:46 Darrick Lew, ANNA is Primary Nurse. bp 09:52 Alex Malik MD is Attending Physician. saumya 09:53 Triage completed. bp 09:53 Arm band placed on. bp 11:16 Edilberto Murray MD is Referral Physician. saumya 11:29 Patient has correct armband on for positive identification. Provided Education on: NA. bp 11:29 Assist provider with I \T\ D: of an abscess on right axilla Set up I\T\D tray. Performed by bp Alex Malik MD Wound packed. iodoform gauze, Dressing with 4X4s, Patient tolerated well. Patient did not have IV access during this emergency room visit. Administered Medications: 10:07 Drug: Lidocaine-Epinephrine Infiltration -1%: (1:100,000) 10 ml 20 ml Infiltration bp once; to bedside Volume: 20 ml; Route: Infiltration; 10:07 Drug: Doxycycline PO 100 mg PO once Route: PO; bp 11:21 Follow up: Response: No adverse reaction bp 10:07 Drug: Trimethoprim-Sulfamethoxazole PO (160 mg-800 mg (DS) 1 tablet PO once Route: PO; bp 11:21 Follow up: Response: No adverse reaction bp 10:07 Drug: Doxycycline PO 100 mg PO once Route: PO; bp 11:22 Follow up: Response: No adverse reaction bp Medication: 11:31 VIS not applicable for this client. bp Outcome: 11:17 Discharge ordered by MD. saumya 11:29 Discharged to home ambulatory, with family, bp 11:29 Condition: stable 11:29 Discharge instructions given to patient, family, Instructed on discharge instructions, follow up and referral plans. medication usage, wound care, Demonstrated understanding of instructions, follow-up care, medications, Prescriptions given X 4, 11:44 Patient left the ED. [email or web address] Signatures: Alex Malik MD MD cha Leal, Jahala RN RN [id number] Darrick Lew RN RN Molly Jeffery [email or web address] Corrections: (The following items were deleted from the chart) 09:58 09:49 Chief complaint: Patient states: MOUTH PAIN bp bp
--- NOTE | 2024-07-03 11:18 | EDPHYS ---
Physician Documentation [facility] Name: Sobia Ang Age: 49 yrs Sex: Female : 1975 Arrival Date: 07/03/2024 Time: 09:32 Bed 20 Private MD: RADHA Physician Alex Malik HPI: 07/03 11:09 This 49 yrs old Female presents to ER via Ambulatory with complaints of Mouth saumya Problem, Skin Problem - RT UNDERARM. 11:09 This 49 yrs old Female presents to ER via Ambulatory with complaints of Mouth saumya Problem, Skin Problem - RT UNDERARM. 11:09 The patient presents with pain. 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 - Infectious Disease History:: Denies. - Social history:: Smoking status: Patient denies any tobacco usage or history of. ROS: 11:11 Constitutional: Negative for fever, chills, and weight loss, Eyes: Negative for injury, saumya pain, redness, and discharge, ENT: Negative for injury, pain, and discharge, Neck: Negative for injury, pain, and swelling, Cardiovascular: Negative for chest pain, palpitations, and edema, Respiratory: Negative for shortness of breath, cough, wheezing, and pleuritic chest pain, Abdomen/GI: Negative for abdominal pain, nausea, vomiting, diarrhea, and constipation, Back: Negative for injury and pain, : Negative for injury, bleeding, discharge, and swelling, Neuro: Negative for headache, weakness, numbness, tingling, and seizure, Psych: Negative for depression, anxiety, suicide ideation, homicidal ideation, and hallucinations, Allergy/Immunology: Negative for hives, rash, and allergies, Endocrine: Negative for neck swelling, polydipsia, polyuria, polyphagia, and marked weight changes, Hematologic/Lymphatic: Negative for swollen nodes, abnormal bleeding, and unusual bruising, 11:11 MS/extremity: Positive for pain, swelling, tenderness, of the right axilla, Exam: 11:11 Constitutional: This is a well developed, well nourished patient who is awake, alert, saumya and in no acute distress. Head/Face: Normocephalic, atraumatic. Eyes: Pupils equal round and reactive to light, extra-ocular motions intact. Lids and lashes normal. Conjunctiva and sclera are non-icteric and not injected. Cornea within normal limits. Periorbital areas with no swelling, redness, or edema. ENT: Nares patent. No nasal discharge, no septal abnormalities noted. Tympanic membranes are normal and external auditory canals are clear. Oropharynx with no redness, swelling, or masses, exudates, or evidence of obstruction, uvula midline. Mucous membranes moist. Neck: Trachea midline, no thyromegaly or masses palpated, and no cervical lymphadenopathy. Supple, full range of motion without nuchal rigidity, or vertebral point tenderness. No Meningismus. Chest/axilla: Normal chest wall appearance and motion. Nontender with no deformity. No lesions are appreciated. Cardiovascular: Regular rate and rhythm with a normal S1 and S2. No gallops, murmurs, or rubs. Normal PMI, no JVD. No pulse deficits. Respiratory: Lungs have equal breath sounds bilaterally, clear to auscultation and percussion. No rales, rhonchi or wheezes noted. No increased work of breathing, no retractions or nasal flaring. Abdomen/GI: Soft, non-tender, with normal bowel sounds. No distension or tympany. No guarding or rebound. No evidence of tenderness throughout. Back: No spinal tenderness. No costovertebral tenderness. Full range of motion. Neuro: Awake and alert, GCS 15, oriented to person, place, time, and situation. Cranial nerves II-XII grossly intact. Motor strength 5/5 in all extremities. Sensory grossly intact. Cerebellar exam normal. Normal gait. Psych: Awake, alert, with orientation to person, place and time. Behavior, mood, and affect are within normal limits. 11:11 Skin: abscess, that is moderate sized, of the right axilla, cellulitis, that is mild, induration, that is moderate is noted, Vital Signs: 09:53 BP 121 / 84; Pulse 70; Resp 16; Temp 98; Pulse Ox 99% ; bp 11:31 BP 123 / 73; Pulse 74; Resp 16; Pulse Ox 100% ; bp Procedures: 11:15 I \T\ D: Incision and drainage was performed for an abscess of the right axilla. Prepped saumya with Betadine, Anesthetized with 10 ml's 1% Lidocaine w/ Epi. Incised with #11 blade. Drained moderate amount purulent fluid. Packed with sterile gauze, Dressing: non-Adherent dressing, the patient tolerated the procedure well. MDM: 09:52 Medical Screening Exam initiated saumya 11:14 Differential diagnosis: abscess, cellulitis, dental caries. Data reviewed: vital signs, [facility] nurses notes. Consideration of Admission/Observation Escalation of care including admission/observation considered. I considered the following discharge prescriptions or medication management in the emergency department Medications were administered in the Emergency Department. See MAR. Test considered but Not performed: Labs: no labs. Historians other than the Patient: Friend: best friend. Care significantly affected by the following chronic conditions: dariers, psych hx. 07/03 09:57 Order name: Dressing - Wound; Complete Time: 11:21 [facility] 07/03 09:57 Order name: Gloves, Sterile; Complete Time: 11:21 [facility] 07/03 09:57 Order name: Setup Suture Tray; Complete Time: 11:21 [facility] Administered Medications: 10:07 Drug: Lidocaine-Epinephrine Infiltration -1%: (1:100,000) 10 ml 20 ml Infiltration bp once; to bedside Volume: 20 ml; Route: Infiltration; 10:07 Drug: Doxycycline PO 100 mg PO once Route: PO; bp 11:21 Follow up: Response: No adverse reaction bp 10:07 Drug: Trimethoprim-Sulfamethoxazole PO (160 mg-800 mg (DS) 1 tablet PO once Route: PO; bp 11:21 Follow up: Response: No adverse reaction bp 10:07 Drug: Doxycycline PO 100 mg PO once Route: PO; bp 11:22 Follow up: Response: No adverse reaction bp Disposition Summary: 07/03/24 11:17 Discharge Ordered Notes: Location: Home [facility] Problem: new saumya Symptoms: have improved saumya Condition: Stable saumya Diagnosis - Cutaneous abscess of other sites - right axilla saumya Followup: saumya - With: Private Physician - When: 2 - 3 days - Reason: Recheck today's complaints, Continuance of care, Re-evaluation by your physician Followup: saumya - With: Edilberto Murray MD - When: 2 - 3 days - Reason: Recheck today's complaints, Re-evaluation by your physician Discharge Instructions: - Discharge Summary Sheet saumya - Skin Abscess saumya - Incision and Drainage saumya - Skin Abscess, Tlbe-rr-Vadp saumya - Incision and Drainage, Care After saumya Forms: - Medication Reconciliation Form [facility] - Antibiotic Education saumya - Prescription Opioid Use saumya - Patient Portal Instructions [facility] - Leadership Thank You Letter [facility] Prescriptions: - Centany 2 % Topical ointment - apply 1 application TOPICAL route 3 times per day; 15 gram tube; Refills: 0, [facility] Product Selection Permitted - Bactrim DS 800-160 mg Oral Tablet - take 1 tablet ORAL route every 12 hours for 10 days; 20 tablet; Refills: 0, [facility] Product Selection Permitted - Doxycycline Monohydrate 100 mg Oral Tablet - take 1 tablet ORAL route every 12 hours for 10 days; 20 tablet; Refills: 0, [facility] Product Selection Permitted - Tylenol-Codeine #3 300mg-30mg Oral tablet - take 1 tablet ORAL route every 4 hours As needed; 16 tablet; Refills: 0, [facility] Product Selection Permitted Signatures: Alex Malik MD MD cha Peltier, Brian, RN RN bp
[2024-07-03 11:52] VITALS: TEMP 98
[2024-07-03 11:56] VITALS: BP 123/73; O2SAT 100
== END 2024-07-03 11:44 | disposition home or self-care (01) ==
LOC: ER 09:32
PROC: 0H9BXZZ Drainage of Right Upper Arm Skin, External Approach (ICD-10-PCS; principal; 2024-07-03)
DX: L02.411 Cutaneous abscess of right axilla (principal)
CPT/HCPCS: 99283